=== PATIENT | male | born 1935 | race Caucasian/White ===

== ENCOUNTER → 2016-11-13 | Outpatient (CLI) | payer OTHER ==
[~2016-11-13] MED LIST: ACET-1311 PO; ASPCH81X PO; CRDCD240 PO; CYAN100020 PO; DILT180C PO; FERR325T5 PO; FLUO10CA24 PO; GLIP-171 PO; GLUCTAB18 PO; HYDR25TA5 PO; INSDGIPEN SC; IPRA1AER2 INH; LISI40TA PO; LOPE1CAP6 PO; NORT10CA4 PO; NVLGI/PEN SC; ONDA4TAB46 PO; RIVA1TAB4 PO; ROSU40TA18 PO; TPRSR/100 PO; TPRSR50 PO; VITA400C3 PO; ZNTT/150 PO
[2016-11-13 13:16] LABS: ESTIMATED AVERAGE GLUCOSE 171 mg/dl; HA1C FLAG Normal (Normal)
[2016-11-13 13:19] LABS: ALT/SGPT 27 U/L (12-78); BLOOD UREA NITROGEN 14 mg/dl (7-18); BUN/CREATININE RATIO 12.4 (10-20); CARBON DIOXIDE 26 mmol/L (21-32); CHLORIDE 106 mmol/L (98-107); GLUCOSE 72 mg/dl (70-99); POTASSIUM 4.1 mmol/L (3.5-5.1); SODIUM 142 mmol/L (136-145)
[2016-11-13 13:22] LABS: ALB/GLOB RATIO 0.9 (0.9-2); ALKALINE PHOSPHATASE 72 U/L (45-117); AST/SGOT 21 U/L (15-37)
== END | disposition home or self-care (01) ==
LOC: C.LABWYN 12:44
PROVIDERS: ATTEND Family Medicine
DX: E11.9 Type 2 diabetes mellitus without complications (principal)

== ENCOUNTER → 2017-02-03 | Outpatient (CLI) | payer OTHER ==
[2017-02-03 13:14] LABS: HEMATOCRIT 24.8 % (42-52); MEAN CELL VOLUME 92.5 fL (80-100); MEAN CORPUSCULAR HEMOGLOBIN 28.4 pg (25-34); MEAN CORPUSCULAR HGB CONC 30.6 g/dl (32-36); MEAN PLATELET VOLUME 9.6 fL (7.4-10.4); PLATELET COUNT 338 K/uL (130-400); RED BLOOD COUNT 2.68 M/uL (4.7-6.1); WHITE BLOOD COUNT 8.04 K/uL (4.8-10.8)
[2017-02-03 13:43] LABS: TOTAL IRON BINDING CAPACITY 440 mcg/dl (250-450)
== END | disposition home or self-care (01) ==
LOC: C.LABWYN 16:11
PROVIDERS: ATTEND Internal Medicine
DX: R19.5 Other fecal abnormalities (principal)

== ENCOUNTER 2017-02-06 17:42 | Inpatient (IN) | payer OTHER ==
[2017-02-06] VITALS (9 sets, daily range): BP systolic 99–136; BP diastolic 53–72; PULSE 57–91; TEMP 36.5–36.9; O2SAT 91–98; Ht 175.3 cm; Wt 120.0 kg
[~2017-02-06] VITALS: Ht 175.3 cm; Wt 120.0 kg
[~2017-02-06 17:42] MED LIST changes: -ACET-1311 PO; -CRDCD240 PO; -FERR325T5 PO; -GLIP-171 PO; -GLUCTAB18 PO; -LOPE1CAP6 PO; -NVLGI/PEN SC; -ONDA4TAB46 PO; -TPRSR50 PO; -VITA400C3 PO
[2017-02-06] MEDS ORDERED: SODIUM CHLORIDE 0.9% 1000ML 1,000 ML IV STA (17:53)
--- NOTE | 2017-02-06 18:01 | EMERGENCY ROOM VISIT NOTE ---
History Report prepared by Joe: Diana Trujillo Under the Supervision of: Dr. Gracie Briggs M.D. First contact with patient: 17:52 Chief Complaint: RECTAL BLEEDING Stated Complaint: BLEEDING RECTAL History of Present Illness The patient is a 81 year old male who presents to the Emergency Room with complaints of constant rectal bleeding beginning one week prior to arrival. The patient was seen by his PCP today and was referred to the ED. Has has been experiencing dizziness and lightheadedness. The patient has experienced rectal bleeding before. He notes his last colonoscopy was not recent. He is on a blood thinner. The patient denies any other symptoms at this time. Source of History: patient Onset: one week [employer] Position: buttock Quality: other (rectal bleeding) Timing: constant Note: The patient is experiencing dizziness and lightheadedness. He denies any other symptoms. Review of Systems See HPI for pertinent positives & negatives. A total of 10 systems reviewed and were otherwise negative. 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 (11) Urinary incontinence due to urethral sphincter incompetence Surgical Problems: (1) History of partial colectomy (2) S/P tonsillectomy Family History Cancer Diabetes mellitus Kidney disease Kidney stones Social History Smoking Status: Never Smoker Marital Status: Housing Status: lives with family Occupation Status: retired Current/Historical Medications Scheduled Cyanocobalamin (Vitamin B12), 1,000 MG PO QAM Diltiazem Hcl Coated Beads (Diltiazem Hcl Er), 180 MG PO DAILY Ferrous Sulfate (Ferrous Sulfate), 325 MG PO BID Fluoxetine HCl (Fluoxetine HCl), 10 MG PO DAILY Glipizide Xl (Glucotrol Xl), 5 MG PO QAM Glucosamine-Chondroitin (Osteo Bi-Flex Regular Str), 1 TAB PO DAILY Hydrochlorothiazide (Hydrochlorothiazide), 25 MG PO DAILY Insulin Aspart (Novolog Flexpen), 1 DOSE SC TID Insulin Glargine (Lantus Solostar), 80 UNITS SC QAM Insulin Glargine (Lantus Solostar), 90 UNITS SC QPM Lisinopril (Zestril), 40 MG PO DAILY Metoprolol Succinate (Metoprolol Succinate ER), 100 MG PO QAM Nortriptyline HCl (Nortriptyline HCl), 20 MG PO HS Ranitidine (Zantac), 150 MG PO QAM Rivaroxaban (Xarelto), 20 MG PO QAM Rosuvastatin Calcium (Rosuvastatin Calcium), 40 MG PO QAM Vitamin E (Vitamin E 400 Iu), 400 INTER.UNIT PO DAILY Scheduled PRN Acetaminophen (Tylenol), 650 MG PO Q4H PRN for Pain or Fever Ipratropium-Albuterol (Combivent Respimat), 1 PUFF INH Q6H PRN for Shortness of Breath Loperamide Hcl (Anti-Diarrheal), 2 MG PO Q4H PRN for Diarrhea Ondansetron Hcl (Zofran), 4 MG PO Q8 PRN for Nausea or Vomiting Allergies Coded Allergies: Cefuroxime (Verified Allergy, Unknown, Unknown, 02/06/17) Metformin (Verified Allergy, Unknown, Unknown, 02/06/17) Physical Exam Vital Signs Date Time Temp Pulse Resp B/P Pulse Ox O2 Delivery O2 Flow Rate FiO2 02/06/17 18:32 70 16 100/47 95 Room Air 02/06/17 18:18 80 12 96/44 92 Room Air 02/06/17 18:12 91 Room Air 02/06/17 18:11 96 02/06/17 17:44 36.7 115 20 97/63 96 Room Air Physical Exam GENERAL: Patient is a pale in appearance, well-nourished HEAD: Normocephalic atraumatic EYES: Ocular movements intact pupils equal and react to light OROPHARYNX mucous membranes are moist no exudates present no erythema or edema present NECK: Supple no nuchal rigidity CHEST: Good equal expansion LUNGS: Clear and equal to auscultation CARDIAC: Normal S1 and S2 ABDOMEN: Soft nontender no guarding BACK: No CVA tenderness RECTAL: Brown stool, heme positive. EXTREMITIES: No pain upon palpation normal muscle strength in all groups no clubbing cyanosis or edema NEURO: Patient is following commands is answering questions appropriately. Alert and oriented x3 Cranial Nerves 2-12 grossly intact Medical Decision & Procedures Laboratory Results 02/06/17 18:06 Red Blood Count 2.61, Mean Corpuscular Volume 92.3, Mean Corpuscular Hemoglobin 28.7, Mean Corpuscular Hemoglobin Concent 31.1, Mean Platelet Volume 9.2, Neutrophils (%) (Auto) 64.4, Lymphocytes (%) (Auto) 22.6, Monocytes (%) (Auto) 10.3, Eosinophils (%) (Auto) 2.3, Basophils (%) (Auto) 0.3, Neutrophils # (Auto ) 5.82, Lymphocytes # (Auto) 2.04, Monocytes # (Auto) 0.93, Eosinophils # (Auto ) 0.21, Basophils # (Auto) 0.03 02/06/17 18:06 Test 02/06/17 18:06 White Blood Count 9.04 K/uL (4.8-10.8) Red Blood Count 2.61 M/uL (4.7-6.1) Hemoglobin 7.5 g/dL (14.0-18.0) Hematocrit 24.1 % (42-52) Mean Corpuscular Volume 92.3 fL (80-100) Mean Corpuscular Hemoglobin 28.7 pg (25-34) Mean Corpuscular Hemoglobin Concent 31.1 g/dl (32-36) Platelet Count 395 K/uL (130-400) Mean Platelet Volume 9.2 fL (7.4-10.4) Neutrophils (%) (Auto) 64.4 % Lymphocytes (%) (Auto) 22.6 % Monocytes (%) (Auto) 10.3 % Eosinophils (%) (Auto) 2.3 % Basophils (%) (Auto) 0.3 % Neutrophils # (Auto) 5.82 K/uL (1.4-6.5) Lymphocytes # (Auto) 2.04 K/uL (1.2-3.4) Monocytes # (Auto) 0.93 K/uL (0.11-0.59) Eosinophils # (Auto) 0.21 K/uL (0-0.5) Basophils # (Auto) 0.03 K/uL (0-0.2) RDW Standard Deviation 48.3 fL (36.4-46.3) RDW Coefficient of Variation 14.6 % (11.5-14.5) Immature Granulocyte % (Auto) 0.1 % Immature Granulocyte # (Auto) 0.01 K/uL (0.00-0.02) Polychromasia 1+ Schistocytes 1+ Prothrombin Time 14.0 SECONDS (9.0-12.0) Prothromb Time International Ratio 1.3 (0.9-1.1) Activated Partial Thromboplast Time 30.3 SECONDS (21.0-31.0) Partial Thromboplastin Ratio 1.2 Anion Gap 6.0 mmol/L (3-11) Estimated GFR () 45.8 Estimated GFR (Non- 39.5 BUN/Creatinine Ratio 21.5 (10-20) Calcium Level 8.3 mg/dl (8.5-10.1) Total Bilirubin 0.2 mg/dl (0.2-1) Direct Bilirubin < 0.1 mg/dl (0-0.2) Aspartate Amino Transf (AST/SGOT) 13 U/L (15-37) Alanine Aminotransferase (ALT/SGPT) 18 U/L (12-78) Alkaline Phosphatase 69 U/L (45-117) Total Protein 7.1 gm/dl (6.4-8.2) Albumin 3.2 gm/dl (3.4-5.0) Lipase 98 U/L (73-393) Labs reviewed by ED physician. Medications Administered Medications (Trade) Dose Ordered Sig/Melany Route Start Time Stop Time Status Last Admin Dose Admin Sodium Chloride (Nss 1000ml) 1,000 ml @ 999 mls/hr Q1H1M STAT IV 02/06/17 17:53 02/06/17 18:53 DC 02/06/17 18:28 999 MLS/HR Pantoprazole Sodium 1 ea 1 ea NOW STAT IV 02/06/17 18:30 02/06/17 18:32 DC 02/06/17 19:35 1 EA Pantoprazole Sodium 40 mg/ Dextrose 100 ml @ 20 mls/hr Q5H IV 02/06/17 19:00 02/06/17 21:07 DC 02/06/17 19:33 20 MLS/HR Pantoprazole Sodium/Dextrose (Protonix Inj/D5 100ml) 120 ml @ 480 mls/hr TODAY@1845 IV 02/06/17 18:45 02/06/17 18:59 DC 02/06/17 19:09 480 MLS/HR ECG Indication: other (rectal bleeding) Rate (beats per minute): 98 Rhythm: atrial flutter Findings: T-wave inversion (Inferior), no acute ischemic change, other ( variable AV block) ED Course 175: Past medical records reviewed. The patient was evaluated in room C5. A complete history and physical examination was performed. 1753: Sodium Chloride 1,000 ml @ 999 mls/hr IV. 1830: Pantoprazole Sodium 40 mg/ Syringe 10 ml @ 5 mls/min IV. 184: The patient signed consent form. 184: Pantoprazole Sodium 80 mg/ Dextrose 120 ml @ 480 mls/hr IV. 185: I discussed the patient's case with Dr. Ramirez Kelly, she has agreed to evaluate the patient for further management and care. 190: Pantoprazole Sodium 40 mg/ Dextrose 100 ml @ 20 mls/hr IV. 190: Upon reexamination the patient is hemodynamically stable. I discussed results and treatment plan with the patient. He verbalizes agreement and understanding. I spoke with Dr. Guzmán from the [facility] Hospitalist Service. The patient will be evaluated for further management. Medical Decision The patient is a 81 year old male who presents to the ED with complaints of rectal bleeding. Differential diagnosis: Etiologies such as diverticulosis, AVM, coagulopathy, colitis, inflammatory bowel disease, malignancy, Hailee-Hsieh tear, esophagitis, peptic ulcer disease , variceal bleed, gastritis, epistaxis, fissure, hemorrhoids, as well as others were entertained. This is an 81-year-old male who presents emergency department complaining of generalized weakness along with black and tarry stools. The patient has had a GI bleed in the past. His hemoglobin was noted to be below 8. For this reason the patient was typed and screened and he willingly signed the blood consent form. He was typed and screened for 2 units of packed red blood cells. He was started on IV Protonix bolus and drip. The patient I will note is hypotensive here in emergency department therefore he was given normal saline bolus. I did discuss the case with the hospitalist service who agreed to admit the patient. Patient was in agreement with the treatment plan. Consults Time Called: 1850 Consulting Physician: Dr. Ramirez Kelly Returned Call: 1852 I discussed the patient's case with Dr. Guzmán, she has agreed to evaluate the patient for further management and care. Impression Primary Impression: Anemia Additional Impression: GI bleed Critical Care I have personally spent greater than 30 minutes of critical care time in the direct management of this patient. This includes bedside care, interpretation of diagnostic studies, and testing, discussion with consultants, patient, and family members, and other required patient management activities. This 30 minutes is in excess of all separately billable procedures. Scribe Attestation The scribe's documentation has been prepared under my direction and personally reviewed by me in its entirety. I confirm that the note above accurately reflects all work, treatment, procedures, and medical decision making performed by me. Departure Information Dispostion Being Evaluated By Hospitalist Referrals MICHAEL AGUILAR (PCP) Problem Qualifiers Primary Impression: Anemia Anemia type: other cause Other causes of anemia: acute posthemorrhagic Qualified Codes: D62 - Acute posthemorrhagic anemia Additional Impression: GI bleed GI bleed type/associated pathology: unspecified gastrointestinal hemorrhage type Qualified Codes: K92.2 - Gastrointestinal hemorrhage, unspecified
[2017-02-06 18:20] LABS: BASO % 0.3 %; BASO ABS # 0.03 K/uL (0-0.2); EOS % 2.3 %; HEMATOCRIT 24.1 % (42-52); IG% 0.1 %; LYMPH % 22.6 %; LYMPH ABS # 2.04 K/uL (1.2-3.4); MEAN CELL VOLUME 92.3 fL (80-100); MEAN CORPUSCULAR HEMOGLOBIN 28.7 pg (25-34); MEAN CORPUSCULAR HGB CONC 31.1 g/dl (32-36); MEAN PLATELET VOLUME 9.2 fL (7.4-10.4); MONO % 10.3 %; NEUT % 64.4 %; PLATELET COUNT 395 K/uL (130-400); RED BLOOD COUNT 2.61 M/uL (4.7-6.1); WHITE BLOOD COUNT 9.04 K/uL (4.8-10.8)
[2017-02-06 18:30] LABS: INR 1.3 (0.9-1.1); PARTIAL THROMBOPLASTIN RATIO 1.2
[2017-02-06] MEDS ORDERED: PANTOprazole INJ 40 MG in SYRINGE 0 ML IV STA (18:30)
[2017-02-06 18:37] LABS: COMPLETE YES; POLYCHROMASIA 1+; SCHISTOCYTES 1+
[2017-02-06 18:38] LABS: BLOOD UREA NITROGEN 34 mg/dl (7-18); BUN/CREATININE RATIO 21.5 (10-20); CALCIUM 8.3 mg/dl (8.5-10.1); CARBON DIOXIDE 28 mmol/L (21-32); CHLORIDE 111 mmol/L (98-107); GLUCOSE 146 mg/dl (70-99); POTASSIUM 4.4 mmol/L (3.5-5.1); SODIUM 145 mmol/L (136-145)
[2017-02-06] MEDS ORDERED: PANTOprazole INJ 80 MG in DEXTROSE 5% 100ML IV SCH (18:45)
[2017-02-06 18:47] LABS: ALKALINE PHOSPHATASE 69 U/L (45-117); ALT/SGPT 18 U/L (12-78); AST/SGOT 13 U/L (15-37)
[2017-02-06] MEDS: PANTOprazole INJ 40 MG in DEXTROSE 5% 100ML IV SCH ×3 (19:10→22:14)
[2017-02-06] MEDS ORDERED: GLUCOSE 40% GEL 15 GM TUBE PO PRN (19:15)
[2017-02-06] MEDS ORDERED: GLUCAGON FOR INJ 1 MG VIAL SQ PRN (19:15)
[2017-02-06] MEDS ORDERED: GLUCOSE 10 TABS/TUBE PO PRN (19:15)
[2017-02-06] MEDS ORDERED: POLYETHYLENE (MIRALAX) 17 GM PACK PO PRN (19:15)
[2017-02-06] MEDS ORDERED: DEXTROSE 50% 50 ML SYR IV PRN (19:15)
[2017-02-06] MEDS ORDERED: ONDANSETRON INJ 2 MG/ML 2 ML VIAL IV PRN (19:15)
[2017-02-06] MEDS ORDERED: ACETAMINOPHEN 325 MG TAB PO PRN ×2 (19:15→20:45)
[2017-02-06] MEDS ORDERED: GLUCTAB18 PO (19:24)
[2017-02-06] MEDS ORDERED: GLIP-171 PO (19:24)
[2017-02-06] MEDS ORDERED: FERR325T5 PO (19:24)
[2017-02-06] MEDS ORDERED: VITA400C3 PO (19:25)
[2017-02-06] MEDS ORDERED: ACET-1311 PO (19:29)
[2017-02-06] MEDS ORDERED: LOPE1CAP6 PO (19:29)
[2017-02-06] MEDS ORDERED: ONDA4TAB46 PO (19:29)
[2017-02-06] MEDS ORDERED: NVLGI/PEN SC (19:33)
--- NOTE | 2017-02-06 20:34 | History and Physical ---
History & Physical Date & Time of Service: Feb 06, 2017 at 19:53 Chief Complaint: Bleeding Rectal Primary Care Physician: Tequila Hunt History of Present Illness Source: patient, hospital records, [facility] 81 year-old male with past medical history significant for atrial fibrillation, diabetes, hypertension, hyperlipidemia, GERD, osteoarthritis, urinary incontinence, prostate cancer status post radiation and status post surgery, presents with episode of rectal bleeding started about 3 to 4 days days ago.He saw his PCP today for the rectal bleeding that sent him to the ER. Pt said that every time he had a BM, he saw blood in the tissue paper when he wipes. he said that he had a similar episode before that was resolved. last time that occurred he said that he had a colonoscopy, that was stopped early because he went to [facility]. he said that he has been taking his Xarelto everyday during the rectal bleeding. last BM was last night. He said that his stools are very hard. Pt said that he has been having lightheadedness and dizziness for the last few days. Denies any abdominal pain, nausea,vomiting, chest pain, shortness of breath, fever and chills. 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 Surgical Problems: (1) History of partial colectomy Status: Chronic (2) S/P tonsillectomy Status: Chronic Family History Cancer Diabetes mellitus Kidney disease Kidney stones Social History Smoking Status: Never Smoker Alcohol Use: none Drug Use: none Marital Status: Housing status: lives alone Occupational Status: retired Immunizations History of Influenza Vaccine: N/A Influenza Vaccine Date: Jun 07, 2008 History of Tetanus Vaccine?: Yes History of Pneumococcal: Yes Pneumococcal Date: Jun 23, 2011 History of Hepatitis B Vaccine: No Allergies Coded Allergies: Cefuroxime (Verified Allergy, Unknown, Unknown, 02/06/17) Metformin (Verified Allergy, Unknown, Unknown, 02/06/17) Home Medications Scheduled Cyanocobalamin (Vitamin B12), 1,000 MG PO QAM Diltiazem Hcl Coated Beads (Diltiazem Hcl Er), 180 MG PO DAILY Ferrous Sulfate (Ferrous Sulfate), 325 MG PO BID Fluoxetine HCl (Fluoxetine HCl), 10 MG PO DAILY Glipizide Xl (Glucotrol Xl), 5 MG PO QAM Glucosamine-Chondroitin (Osteo Bi-Flex Regular Str), 1 TAB PO DAILY Hydrochlorothiazide (Hydrochlorothiazide), 25 MG PO DAILY Insulin Aspart (Novolog Flexpen), 1 DOSE SC TID Insulin Glargine (Lantus Solostar), 80 UNITS SC QAM Insulin Glargine (Lantus Solostar), 90 UNITS SC QPM Lisinopril (Zestril), 40 MG PO DAILY Metoprolol Succinate (Metoprolol Succinate ER), 100 MG PO QAM Nortriptyline HCl (Nortriptyline HCl), 20 MG PO HS Ranitidine (Zantac), 150 MG PO QAM Rivaroxaban (Xarelto), 20 MG PO QAM Rosuvastatin Calcium (Rosuvastatin Calcium), 40 MG PO QAM Vitamin E (Vitamin E 400 Iu), 400 INTER.UNIT PO DAILY Scheduled PRN Acetaminophen (Tylenol), 650 MG PO Q4H PRN for Pain or Fever Ipratropium-Albuterol (Combivent Respimat), 1 PUFF INH Q6H PRN for Shortness of Breath Loperamide Hcl (Anti-Diarrheal), 2 MG PO Q4H PRN for Diarrhea Ondansetron Hcl (Zofran), 4 MG PO Q8 PRN for Nausea or Vomiting Review of Systems Constitutional: No chills, No fever, No weight loss ENT: No nasal symptoms, No sore throat, No unusual epistaxis Respiratory: No cough, No shortness of breath, No sputum Cardiovascular: No chest pain, No palpitations Abdomen: + GI bleeding, No diarrhea, No nausea, No pain, No vomiting Musculoskeletal: No calf pain Genitourinary - Male: No dysuria, No hematuria Neurologic: + problem reported (dizziness and lightheadness), No paralysis Psychiatric: No substance abuse Endocrine: No excessive thirst Hematologic / Lymphatic: No night sweats Integumentary: No itch, No rash Physical Exam Vital Signs Date Time Temp Pulse Resp B/P Pulse Ox O2 Delivery O2 Flow Rate FiO2 02/06/17 19:40 90 20 90/46 02/06/17 18:32 70 16 100/47 95 Room Air 02/06/17 18:18 80 12 96/44 92 Room Air 02/06/17 18:12 91 Room Air 02/06/17 18:11 96 02/06/17 17:44 36.7 115 20 97/63 96 Room Air General Appearance: WD/WN, no apparent distress Head: normocephalic, atraumatic Eyes: normal inspection, PERRL, EOMI ENT: normal ENT inspection, hearing grossly normal Neck: supple, no JVD Respiratory/Chest: lungs clear, no respiratory distress, no accessory muscle use Cardiovascular: no JVD, no murmur, + irregularly irregular Abdomen/GI: normal bowel sounds, non tender, + fecal occult blood Back: normal inspection, no CVA tenderness Extremities/Musculoskelatal: no calf tenderness, + pertinent finding (+ 1 edema ) Neurologic/Psych: no motor/sensory deficits, alert, normal mood/affect, oriented x 3 Skin: normal color, warm/dry, no rash Diagnostics Laboratory Results Results Past 24 Hours Test 02/06/17 18:06 Range/Units White Blood Count 9.04 4.8-10.8 K/uL Red Blood Count 2.61 4.7-6.1 M/uL Hemoglobin 7.5 14.0-18.0 g/dL Hematocrit 24.1 42-52 % Mean Corpuscular Volume 92.3 80-100 fL Mean Corpuscular Hemoglobin 28.7 25-34 pg Mean Corpuscular Hemoglobin Concent 31.1 32-36 g/dl Platelet Count 395 130-400 K/uL Mean Platelet Volume 9.2 7.4-10.4 fL Neutrophils (%) (Auto) 64.4 % Lymphocytes (%) (Auto) 22.6 % Monocytes (%) (Auto) 10.3 % Eosinophils (%) (Auto) 2.3 % Basophils (%) (Auto) 0.3 % Neutrophils # (Auto) 5.82 1.4-6.5 K/uL Lymphocytes # (Auto) 2.04 1.2-3.4 K/uL Monocytes # (Auto) 0.93 0.11-0.59 K/uL Eosinophils # (Auto) 0.21 0-0.5 K/uL Basophils # (Auto) 0.03 0-0.2 K/uL RDW Standard Deviation 48.3 36.4-46.3 fL RDW Coefficient of Variation 14.6 11.5-14.5 % Immature Granulocyte % (Auto) 0.1 % Immature Granulocyte # (Auto) 0.01 0.00-0.02 K/uL Polychromasia 1+ Schistocytes 1+ Prothrombin Time 14.0 9.0-12.0 SECONDS Prothromb Time International Ratio 1.3 0.9-1.1 Activated Partial Thromboplast Time 30.3 21.0-31.0 SECONDS Partial Thromboplastin Ratio 1.2 Sodium Level 145 136-145 mmol/L Potassium Level 4.4 3.5-5.1 mmol/L Chloride Level 111 98-107 mmol/L Carbon Dioxide Level 28 21-32 mmol/L Anion Gap 6.0 3-11 mmol/L Blood Urea Nitrogen 34 7-18 mg/dl Creatinine 1.60 0.60-1.40 mg/dl Estimated GFR () 45.8 Estimated GFR (Non- 39.5 BUN/Creatinine Ratio 21.5 10-20 Random Glucose 146 70-99 mg/dl Calcium Level 8.3 8.5-10.1 mg/dl Total Bilirubin 0.2 0.2-1 mg/dl Direct Bilirubin < 0.1 0-0.2 mg/dl Aspartate Amino Transf (AST/SGOT) 13 15-37 U/L Alanine Aminotransferase (ALT/SGPT) 18 12-78 U/L Alkaline Phosphatase 69 45-117 U/L Total Protein 7.1 6.4-8.2 gm/dl Albumin 3.2 3.4-5.0 gm/dl Lipase 98 73-393 U/L Impression Assessment and Plan GI bleeding On Xarelto for AfiB Positive FOBT in the ER Hbg on admission 7.5 continue protonix drip type and cross and transfused 2 units prbc Blood consent signed Will hold xarelto Will consult GI Will give clear liquid diet and NPO after midnight Monitor h/h YOUSUF creatine on admission 1.6 creatine was 1.1 (back on 11/11) Will give gentle IVF hold Lisinopril and HCTZ monitor BMP Afib rate is controlled EKG showed Atrial flutter Hold xarelto due to GI bleed Will resume diltiazem an Metoprol once BP improved Risks discussed with pt such as blood clot and stroke. HTN BP is in the low side Hold BP med Continue monitor BP DM Type 2 Check Hba1c hold oral meds insulin coverage pharmacy consult for glycemic management Hx Prostate CA Denies any hematuria Stable DVT px on SCDs due to GI bleed CODE Status as per Pt level 3 (Full code, NO mech ventilation) Level of Care Telemetry Resuscitation Status FULL NO MECH VENTILATION VTE Prophylaxis VTE Risk Assessment Done? Y/N: Yes Risk Level: Moderate Given or contraindicated: SCD's, Contraindicated
[2017-02-06] MEDS ORDERED: IPRATROPIUM BROMIDE/ALBUTEROL respimat INH INH PRN (20:45)
[2017-02-06] MEDS ORDERED: INSULIN GLARGINE SOLOSTAR 100 UNITS/ML 3 ML PEN SC SCH (21:00)
[2017-02-06] MEDS ORDERED: PHARMACY GLYCEMIC MGMT CONSULT PRN (21:03)
[2017-02-06] MEDS: INSULIN ASPART 100 UNITS/ML 3 ML PEN SC SCH (21:46)
[2017-02-06] MEDS: NORTRIPTYLINE HCL 10 MG CAP PO SCH (22:14)
[2017-02-06] MEDS: SODIUM CHLORIDE 0.9% 1000ML 1,000 ML IV SCH (22:15)
[2017-02-07] VITALS (16 sets, daily range): BP systolic 98–138; BP diastolic 40–80; PULSE 61–118; TEMP 36.4–37.4; O2SAT 92–97
[2017-02-07] MEDS ORDERED: PANTOprazole INJ 40 MG in DEXTROSE 5% 100ML IV SCH (00:33)
[2017-02-07] MEDS: PANTOprazole INJ 40 MG in DEXTROSE 5% 100ML IV SCH ×5 (04:07→21:07)
[2017-02-07] MEDS: SODIUM CHLORIDE 0.9% 1000ML 1,000 ML IV SCH (04:07)
[2017-02-07 06:38] LABS: HEMATOCRIT 28.8 % (42-52); MEAN CELL VOLUME 90.3 fL (80-100); MEAN CORPUSCULAR HEMOGLOBIN 28.8 pg (25-34); MEAN CORPUSCULAR HGB CONC 31.9 g/dl (32-36); MEAN PLATELET VOLUME 9.2 fL (7.4-10.4); PLATELET COUNT 319 K/uL (130-400); RED BLOOD COUNT 3.19 M/uL (4.7-6.1); WHITE BLOOD COUNT 11.08 K/uL (4.8-10.8)
[2017-02-07] MEDS: INSULIN ASPART 100 UNITS/ML 3 ML PEN SC SCH ×4 (07:00→20:44)
[2017-02-07 07:10] LABS: ESTIMATED AVERAGE GLUCOSE 134 mg/dl; HA1C FLAG Normal (Normal)
[2017-02-07] MEDS ORDERED: D5W AND NSS 1,000 ML IV SCH (07:15)
[2017-02-07 07:32] LABS: BUN/CREATININE RATIO 21.9 (10-20); CALCIUM 7.7 mg/dl (8.5-10.1); CREATININE 1.3 mg/dl (0.60-1.40); POTASSIUM 3.9 mmol/L (3.5-5.1)
[2017-02-07] MEDS: FERROUS SULFATE 325 MG TAB PO SCH ×2 (07:44→17:18)
[2017-02-07] MEDS: FLUOXETINE HCL 10 MG CAP PO SCH (07:45)
[2017-02-07] MEDS: ROSUVASTATIN CALCIUM 20 MG TAB PO SCH (07:45)
[2017-02-07] MEDS: TOCOPHERYL, DL-ALPHA 400 INTER.UNIT CAP PO SCH (07:45)
[2017-02-07] MEDS: CYANOCOBALAMIN 500 MCG TAB (VIT B-12) PO SCH (07:45)
[2017-02-07] MEDS: RANITIDINE HCL 150 MG TAB PO SCH (07:46)
[2017-02-07] MEDS ORDERED: NURSING VERBAL MED ORDER STA (08:06)
[2017-02-07] MEDS ORDERED: METOPROLOL TARTRATE 1 MG/ML VIAL IV STA (08:38)
[2017-02-07 08:45] LABS: URINE APPEARANCE CLEAR (CLEAR); URINE BILIRUBIN NEG (NEG); URINE COLOR YELLOW; URINE NITRITE NEG (NEG); URINE SPECIFIC GRAVITY 1.018 (1.000-1.030); UROBILINOGEN NEG (NEG)
[2017-02-07 08:49] LABS: MANUAL MICROSCOPIC REQUIRED? NO; REVIEW REQ? NO
[2017-02-07] MEDS: DILTIAZEM HCL (TIAzac) 180 MG CAPCR PO SCH (08:55)
[2017-02-07] MEDS: METOPROLOL SUCC 50MG EXT REL TAB PO SCH (08:56)
[2017-02-07] MEDS ORDERED: NON-FORMULARY MEDICATION (Glucosamine-Chondroitin (Osteo Bi-Flex Regular Str) 1 TAB) PO SCH (09:00)
[2017-02-07] MEDS ORDERED: TOCOPHERYL, DL-ALPHA 400 INTER.UNIT CAP PO SCH (09:00)
--- NOTE | 2017-02-07 09:12 | Progress Note ---
Internal Med Progress Note Date of Service: Feb 07, 2017. Provider Documentation: SUBJECTIVE: Patient is seen and examined at bedside. States feeling well. Denies chest pain , SOB, palpitations, dizziness, abd pain. Had BM today but denies any bleeding. Currently in A.flutter with RVR but asymptomatic. Received 2 units PRBC since hospitalization. Hb:9.2 today. Hypoglycemic this morning but improved. OBJECTIVE: Vital Signs-as noted below Physical Exam: General Appearance:Moderately built and nourished, no apparent distress Head: normocephalic, Atraumatic Eyes: normal inspection, EOMI, PERRLA Neck: supple, Trachea midline Respiratory/Chest: Normal breath sounds, CTA, No accessory muscle use Cardiovascular: Irregularly Irregular. No audible murmur Abdomen/GI:Soft, Non tender, Bowel sounds present, Obese Extremities/Musculoskelatal:normal inspection, Trace b/l pedal edema Neurologic/Psych:AAOX3, grossly no focal neurological deficits Skin: normal color, warm Lab data as noted below. ASSESSMENT & PLAN: Acute on Chronic GI bleeding On Xarelto for Afib DD: Polyps, diverticulosis, AVMs, hemorrhoids States being on Aspirin at home but not seen on home meds States having colonoscopy X 2 recently but could not be completed secondary to uncontrolled afib Denies use of NSAIDs Positive FOBT Hb:7.5 on admission. Currently Hb:9.2 Baseline Hb: around 13.0 S/P 2 units PRBCs On Protonix drip, IVF Hold xarelto Monitor H&H, Transfuse PRN GI consulted Currently no active bleeding A.flutter with RVR H/O Afib on chronic anticoagulation EKG: Atrial flutter Currently asymptomatic Restart diltiazem an Metoprolol which were held secondary to low BP Continue to hold Xarelto due to GI bleed Will consult cardiology Monitor electrolytes. check Mag levels YOUSUF Likely prerenal creatine on admission 1.6. Baseline: 1.1 Cr levels improved to 1.3 today On IVF Hold Lisinopril and HCTZ for now Avoid nephrotoxic agents Monitor renal function HTN Presented with hypotension Will resume Lisinopril and HCTZ when BP better Continue DM II A1C:6.3 hold oral meds ISS, accu checks pharmacy consult for glycemic management Hypoglycemic this morning On D5NSS. Will change IVF if hypoglycemia improves Hx Prostate CA Denies any hematuria UA:pending DVT PX: SCDs due to GI bleed CODE STATUS: Pt level 3 (Full code, NO [facility] ventilation) Vital Signs: Date Time Temp Pulse Resp B/P Pulse Ox O2 Delivery O2 Flow Rate FiO2 02/07/17 07:41 36.8 110 22 104/63 97 Room Air 02/07/17 04:00 Room Air 02/07/17 03:55 36.7 97 20 125/75 92 Room Air 02/07/17 01:15 36.9 71 18 116/72 95 02/07/17 00:30 36.8 75 18 113/40 94 02/07/17 00:01 36.9 61 20 108/70 96 02/07/17 00:01 Room Air 02/06/17 23:30 58 18 101/61 94 02/06/17 23:25 36.8 57 22 116/72 95 02/06/17 23:17 36.6 77 20 116/72 95 Room Air 02/06/17 23:10 36.9 91 20 114/61 95 02/06/17 22:30 36.8 75 20 105/67 95 02/06/17 22:00 80 22 99/57 94 02/06/17 21:49 36.6 71 20 99/53 94 02/06/17 21:34 36.5 71 18 99/53 91 02/06/17 20:57 36.5 60 20 136/69 98 Room Air 02/06/17 20:19 90 14 114/68 94 Room Air 02/06/17 19:40 90 20 90/46 02/06/17 18:32 70 16 100/47 95 Room Air 02/06/17 18:18 80 12 96/44 92 Room Air 02/06/17 18:12 91 Room Air 02/06/17 18:11 96 02/06/17 17:44 36.7 115 20 97/63 96 Room Air Lab Results: Results Past 24 Hours Test 02/06/17 18:06 02/06/17 21:28 02/07/17 06:10 02/07/17 06:23 Range/Units White Blood Count 9.04 11.08 4.8-10.8 K/uL Red Blood Count 2.61 3.19 4.7-6.1 M/uL Hemoglobin 7.5 9.2 14.0-18.0 g/dL Hematocrit 24.1 28.8 42-52 % Mean Corpuscular Volume 92.3 90.3 80-100 fL Mean Corpuscular Hemoglobin 28.7 28.8 25-34 pg Mean Corpuscular Hemoglobin Concent 31.1 31.9 32-36 g/dl Platelet Count 395 319 130-400 K/uL Mean Platelet Volume 9.2 9.2 7.4-10.4 fL Neutrophils (%) (Auto) 64.4 % Lymphocytes (%) (Auto) 22.6 % Monocytes (%) (Auto) 10.3 % Eosinophils (%) (Auto) 2.3 % Basophils (%) (Auto) 0.3 % Neutrophils # (Auto) 5.82 1.4-6.5 K/uL Lymphocytes # (Auto) 2.04 1.2-3.4 K/uL Monocytes # (Auto) 0.93 0.11-0.59 K/uL Eosinophils # (Auto) 0.21 0-0.5 K/uL Basophils # (Auto) 0.03 0-0.2 K/uL RDW Standard Deviation 48.3 49.0 36.4-46.3 fL RDW Coefficient of Variation 14.6 15.0 11.5-14.5 % Immature Granulocyte % (Auto) 0.1 % Immature Granulocyte # (Auto) 0.01 0.00-0.02 K/uL Polychromasia 1+ Schistocytes 1+ Prothrombin Time 14.0 9.0-12.0 SECONDS Prothromb Time International Ratio 1.3 0.9-1.1 Activated Partial Thromboplast Time 30.3 21.0-31.0 SECONDS Partial Thromboplastin Ratio 1.2 Sodium Level 145 145 136-145 mmol/L Potassium Level 4.4 3.9 3.5-5.1 mmol/L Chloride Level 111 111 98-107 mmol/L Carbon Dioxide Level 28 29 21-32 mmol/L Anion Gap 6.0 5.0 3-11 mmol/L Blood Urea Nitrogen 34 29 7-18 mg/dl Creatinine 1.60 1.30 0.60-1.40 mg/dl Estimated GFR () 45.8 58.9 Estimated GFR (Non- 39.5 50.8 BUN/Creatinine Ratio 21.5 21.9 10-20 Random Glucose 146 41 70-99 mg/dl Calcium Level 8.3 7.7 8.5-10.1 mg/dl Total Bilirubin 0.2 0.2-1 mg/dl Direct Bilirubin < 0.1 0-0.2 mg/dl Aspartate Amino Transf (AST/SGOT) 13 15-37 U/L Alanine Aminotransferase (ALT/SGPT) 18 12-78 U/L Alkaline Phosphatase 69 45-117 U/L Total Protein 7.1 6.4-8.2 gm/dl Albumin 3.2 3.4-5.0 gm/dl Lipase 98 73-393 U/L Bedside Glucose 71 48 70-99 mg/dl Est Creatinine Clear Calc Drug Dose 56.5 ml/min Estimated Average Glucose 134 mg/dl Hemoglobin A1c 6.3 4.5-5.6 % Test 02/07/17 06:43 02/07/17 08:17 02/07/17 08:25 Range/Units Bedside Glucose 77 70-99 mg/dl
[2017-02-07] MEDS ORDERED: SODIUM CHLORIDE 0.9% 250ML 250 ML IV ONE (09:30)
[2017-02-07] MEDS ORDERED: DILTIAZEM BOLUS / DRIP IV STA (10:21)
[2017-02-07] MEDS ORDERED: DILTIAZEM HCL 5 MG/ML 5 ML VIAL IV SCH (11:00)
[2017-02-07] MEDS ORDERED: DILTIAZEM HCL INJ 125 MG in DEXTROSE 5% 100ML IV PRN (11:00)
--- NOTE | 2017-02-07 11:20 | Cardiology Consultation ---
Cardiology Consultation Date of Consultation: Feb 07, 2017. Requesting Physician: Dr. Perdue Reason for Consultation: Atrial flutter Pt evaluation today including: conversation w/ patient, physical exam, lab review, review of studies, review of inpatient medication list History of Present Illness This is a very pleasant 80-year-old gentleman who unfortunately has a very poor memory and therefore his history is unreliable. He has a history of prostate cancer. He was scheduled for a colonoscopy and was found to be in atrial flutter , I believe this was in 2013. He was asymptomatic and had no history of this. He was sent to the emergency room where he was documented to be in atrial flutter with a rapid heart rate of about 140 bpm. He was started on beta blockade and sent home, however he did convert to sinus rhythm while in the emergency room, this occurred after a quite brief episode of atrial flutter. He wore an event recorder to see whether he had frequent or rapid atrial arrhythmias, which he wore from 10/09/2014 through 11/12/2014. He did have frequent paroxysmal atrial fibrillation or flutter, mostly on a daily basis, averaging 5-7% of the time. His heart rate was rapid at times, around 140 bpm during the episodes although they were asymptomatic. He was therefore started on Xarelto 20 mg daily on 12/08/2014. He was subsequently hospitalized for urosepsis, and his lisinopril, Xarelto and aspirin were all discontinued. I believe his Xarelto was held in plans for colonoscopy however that was not arranged I therefore restarted it and held it prior to his colonoscopy which was attempted on 12/28/2015. He tells me that he was told not to take his diltiazem for his metoprolol that morning, he was in atrial fibrillation with a rapid heart rate at the time the procedure and therefore it was canceled. He was seen on 02/06/2017 for intermittent rectal bleeding which has been progressive. He was found to have severe anemia as well as heme-positive stools. He was therefore admitted. His anticoagulation is now on hold. At the time my evaluation he was feeling well. He has no complaints of palpitations, no chest discomfort or other cardiovascular symptoms. He does experience shortness of breath at times was not having that today. Past Medical/Surgical History (1) GI bleeding (2) Anemia (3) HTN (hypertension) (4) Hypercholesteremia (5) Afib Family History Cancer Diabetes mellitus Kidney disease Kidney stones Social History Smoking Status: Never Smoker History of Alcohol Use: No Review of Systems Constitutional: No fever, No weakness, No weight loss Respiratory: No cough, No dyspnea on exertion, No shortness of breath, No wheezing Cardiac: No PND, No chest pain, No edema, No orthopnea, No palpitations Abdomen: No GI bleeding, No diarrhea, No nausea, No pain, No vomiting Male : No nocturia more than once/night, No sexual dysfunction, No slowing stream, No urinary frequency Neurologic: No balance problems, No numbness/tingling, No paralysis, No weakness Heme: No abnormal bleeding/bruising, No clotting problems Endo: No fatigue Skin: No problem reported All Other Systems: Reviewed and Negative Allergies Coded Allergies: Cefuroxime (Verified Allergy, Unknown, Unknown, 02/06/17) Metformin (Verified Allergy, Unknown, Unknown, 02/06/17) Medications Current Inpatient Medications Medications (Trade) Dose Ordered Sig/Melany Route Start Time Stop Time Status Last Admin Dose Admin Acetaminophen (Tylenol Tab) 650 mg Q4H PRN PO 02/06/17 19:15 03/08/17 19:14 Ondansetron HCl (Zofran Inj) 4 mg Q6H PRN IV 02/06/17 19:15 03/08/17 19:14 Polyethylene (Miralax Powder Packet) 17 gm DAILY PRN PO 02/06/17 19:15 03/08/17 19:14 Glucose (Glucose 40% Gel) 15-30 GRAMS 15 GRAMS... UD PRN PO 02/06/17 19:15 03/08/17 19:14 Glucose (Glucose Chew Tab) 4-8 Tablets 4 Tabl... UD PRN PO 02/06/17 19:15 03/08/17 19:14 Dextrose (Dextrose 50% 50ML Syringe) 25-50ML OF 50% DW IV FOR... UD PRN IV 02/06/17 19:15 03/08/17 19:14 Glucagon (Glucagon Inj) 1 mg UD PRN SQ 02/06/17 19:15 03/08/17 19:14 Miscellaneous Information (Consult Glycemic Management Pharmacy) 1 ea UD PRN N/A 02/06/17 21:03 03/08/17 21:02 Insulin Aspart (novoLOG ASPART) SLIDING SCALE If C... ACHS SC 02/06/17 21:00 03/08/17 20:59 Ferrous Sulfate (Feosol Tab) 325 mg BIDM PO 02/07/17 07:30 03/09/17 07:29 02/07/17 07:44 325 MG Fluoxetine HCl (Prozac Cap) 10 mg DAILY PO 02/07/17 09:00 03/09/17 08:59 02/07/17 07:45 10 MG Albuterol/ Ipratropium (Combivent Respimat Inh) 1 puffs Q6H PRN INH 02/06/17 20:45 03/08/17 20:44 Nortriptyline HCl (Pamelor Cap) 20 mg HS PO 02/06/17 21:00 03/08/17 20:59 02/06/17 22:14 20 MG Ranitidine HCl (zANTac TAB) 150 mg QAM PO 02/07/17 09:00 03/09/17 08:59 02/07/17 07:46 150 MG Cyanocobalamin (Vitamin B-12 Tab) 1,000 mcg QAM PO 02/07/17 09:00 03/09/17 08:59 02/07/17 07:45 1,000 MCG Rosuvastatin Calcium (Crestor Tab) 40 mg QAM PO 02/07/17 09:00 03/09/17 08:59 02/07/17 07:45 40 MG xr-Weulo-Otqjayulax Acetate 400 interunit 400 interunit DAILY PO 02/07/17 09:00 03/09/17 08:59 02/07/17 07:45 400 INTERUNIT Pantoprazole Sodium 40 mg/ Dextrose 100 ml @ 20 mls/hr Q5H IV 02/06/17 22:15 03/08/17 22:14 02/07/17 07:52 20 MLS/HR Dextrose/Sodium Chloride (D5W And Nss) 1,000 ml @ 75 mls/hr [id number] IV 02/07/17 07:15 02/07/17 20:34 02/07/17 07:53 75 MLS/HR Metoprolol Succinate (Toprol Xl Tab) 100 mg DAILY PO 02/07/17 08:15 03/09/17 08:14 02/07/17 08:56 100 MG Diltiazem HCl 180 mg 180 mg DAILY PO 02/07/17 08:15 03/09/17 08:14 Future Hold 02/07/17 08:55 180 MG Diltiazem HCl/ Dextrose (Cardizem Inj/D5 100ml) 125 ml @ 5 mls/hr Q24H PRN IV 02/07/17 11:00 03/09/17 10:59 Physical Exam Vital Signs Past 12 Hours Date Time Temp Pulse Resp B/P Pulse Ox O2 Delivery O2 Flow Rate FiO2 02/07/17 10:10 130 111/72 02/07/17 07:41 36.8 110 22 104/63 97 Room Air 02/07/17 04:00 Room Air 02/07/17 03:55 36.7 97 20 125/75 92 Room Air 02/07/17 01:15 36.9 71 18 116/72 95 02/07/17 00:30 36.8 75 18 113/40 94 02/07/17 00:01 36.9 61 20 108/70 96 02/07/17 00:01 Room Air 02/06/17 23:30 58 18 101/61 94 02/06/17 23:25 36.8 57 22 116/72 95 02/06/17 23:17 36.6 77 20 116/72 95 Room Air 02/06/17 23:10 36.9 91 20 114/61 95 Constitutional: General Apperance: obese Level of Distress: NAD Psychiatric: Mental Status: active & alert Head: normocephalic Eyes: EOM: EOMI ENMT: normal ENT inspection, hearing grossly normal Neck: supple, no masses Lungs: Respiratory effort: no dyspnea, good air movement Auscultation: breath sounds normal, no wheezing Cardiovascular: Heart Auscultation: no murmurs, no rubs, no gallops, tachycardia, irregular rate rhythm Peripheral Pulses: Bruits: none appreciated Abdomen: Bowel Sounds: normal Inspection & Palpation: soft, no tenderness, guarding & rebound, no masses Musculoskeletal: normal strength (5/5 throughout) Extremities: no edema Neurologic: Cranial Nerves: grossly intact Sensation: grossly intact Data Laboratory Results: Last 24 Hours Test 02/06/17 18:06 4/14/17 21:28 02/07/17 06:10 02/07/17 06:23 White Blood Count 9.04 K/uL 11.08 K/uL Red Blood Count 2.61 M/uL 3.19 M/uL Hemoglobin 7.5 g/dL 9.2 g/dL Hematocrit 24.1 % 28.8 % Mean Corpuscular Volume 92.3 fL 90.3 fL Mean Corpuscular Hemoglobin 28.7 pg 28.8 pg Mean Corpuscular Hemoglobin Concent 31.1 g/dl 31.9 g/dl Platelet Count 395 K/uL 319 K/uL Mean Platelet Volume 9.2 fL 9.2 fL Neutrophils (%) (Auto) 64.4 % Lymphocytes (%) (Auto) 22.6 % Monocytes (%) (Auto) 10.3 % Eosinophils (%) (Auto) 2.3 % Basophils (%) (Auto) 0.3 % Neutrophils # (Auto) 5.82 K/uL Lymphocytes # (Auto) 2.04 K/uL Monocytes # (Auto) 0.93 K/uL Eosinophils # (Auto) 0.21 K/uL Basophils # (Auto) 0.03 K/uL RDW Standard Deviation 48.3 fL 49.0 fL RDW Coefficient of Variation 14.6 % 15.0 % Immature Granulocyte % (Auto) 0.1 % Immature Granulocyte # (Auto) 0.01 K/uL Polychromasia 1+ Schistocytes 1+ Prothrombin Time 14.0 SECONDS Prothromb Time International Ratio 1.3 Activated Partial Thromboplast Time 30.3 SECONDS Partial Thromboplastin Ratio 1.2 Sodium Level 145 mmol/L 145 mmol/L Potassium Level 4.4 mmol/L 3.9 mmol/L Chloride Level 111 mmol/L 111 mmol/L Carbon Dioxide Level 28 mmol/L 29 mmol/L Anion Gap 6.0 mmol/L 5.0 mmol/L Blood Urea Nitrogen 34 mg/dl 29 mg/dl Creatinine 1.60 mg/dl 1.30 mg/dl Estimated GFR () 45.8 58.9 Estimated GFR (Non- 39.5 50.8 BUN/Creatinine Ratio 21.5 21.9 Random Glucose 146 mg/dl 41 mg/dl Calcium Level 8.3 mg/dl 7.7 mg/dl Total Bilirubin 0.2 mg/dl Direct Bilirubin < 0.1 mg/dl Aspartate Amino Transf (AST/SGOT) 13 U/L Alanine Aminotransferase (ALT/SGPT) 18 U/L Alkaline Phosphatase 69 U/L Total Protein 7.1 gm/dl Albumin 3.2 gm/dl Lipase 98 U/L Bedside Glucose 71 mg/dl 48 mg/dl Est Creatinine Clear Calc Drug Dose 56.5 ml/min Estimated Average Glucose 134 mg/dl Hemoglobin A1c 6.3 % Magnesium Level 2.2 mg/dl Test 02/07/17 06:43 02/07/17 08:25 Bedside Glucose 77 mg/dl Urine Color YELLOW Urine Appearance CLEAR Urine pH 5.0 Urine Specific Marilla 1.018 Urine Protein NEG Urine Glucose (UA) NEG Urine Ketones NEG Urine Occult Blood 3+ Urine Nitrite NEG Urine Bilirubin NEG Urine Urobilinogen NEG Urine Leukocyte Esterase NEG Urine WBC (Auto) 1-5 /hpf Urine RBC (Auto) 10-30 /hpf Urine Hyaline Casts (Auto) 0 /lpf Urine Epithelial Cells (Auto) 10-20 /lpf Urine Bacteria (Auto) NEG EKG: Atrial flutter with a heart rate of 98 bpm. Telemetry reviewed: Atrial flutter with a rapid heart rate, gradually rising since hospitalization. Assessment & Plan #1. Atrial flutter: He has a long history of paroxysmal atrial flutter, he is unaware of the rate in general. His rate controlling meds were held on admission , however he just received them. His HR was reasonably well-controlled with oral diltiazem and metoprolol at home. We will probably be forced to hold anticoagulation for now. Thank You
--- NOTE | 2017-02-07 13:52 | Pharmacy Progress Note ---
Glycemic Control Intl Consult Date of Service Feb 07, 2017. Scope Glycemic Pharmacist consulted by Dr Guzmán on 02/06/17 for glycemic control and to write orders per [facility] inpatient glycemic control protocol Objective Weight (Kilograms): 122.000 Accuchecks BSG (last 24hrs): Test 02/06/17 18:06 02/06/17 21:28 02/07/17 06:10 02/07/17 06:23 Random Glucose 146 mg/dl (70-99) 41 mg/dl (70-99) Bedside Glucose 71 mg/dl (70-99) 48 mg/dl (70-99) Test 02/07/17 06:43 02/07/17 10:48 Bedside Glucose 77 mg/dl (70-99) 82 mg/dl (70-99) Laboratory Data (last 24hrs) Test 02/06/17 18:06 02/07/17 06:10 Anion Gap 6.0 mmol/L 5.0 mmol/L BUN/Creatinine Ratio 21.5 21.9 Blood Urea Nitrogen 34 mg/dl 29 mg/dl Creatinine 1.60 mg/dl 1.30 mg/dl Potassium Level 4.4 mmol/L 3.9 mmol/L Sodium Level 145 mmol/L 145 mmol/L White Blood Count 9.04 K/uL 11.08 K/uL Red Blood Count 2.61 M/uL Hemoglobin 7.5 g/dL Hematocrit 24.1 % Mean Corpuscular Volume 92.3 fL Mean Corpuscular Hemoglobin 28.7 pg Mean Corpuscular Hemoglobin Concent 31.1 g/dl Platelet Count 395 K/uL Mean Platelet Volume 9.2 fL Neutrophils (%) (Auto) 64.4 % Lymphocytes (%) (Auto) 22.6 % Monocytes (%) (Auto) 10.3 % Eosinophils (%) (Auto) 2.3 % Basophils (%) (Auto) 0.3 % Neutrophils # (Auto) 5.82 K/uL Lymphocytes # (Auto) 2.04 K/uL Monocytes # (Auto) 0.93 K/uL Eosinophils # (Auto) 0.21 K/uL Basophils # (Auto) 0.03 K/uL Hemoglobin A1c 6.3 % HbA1c Test 02/07/17 06:10 Hemoglobin A1c 6.3 %(4.5-5.6) H Recent Pertinent Medications Outpatient Anti-diabetic Regimen: * Lantus SQ BID * 80 units in AM * 90 units in PM * NovoLog SQ SS * Glipizide ER 5mg PO daily * A1c = 7.6% 10/2016 --> 6.3% The patient is currently receiving: * Basal insulin: Lantus currently being held * Correctional Insulin: NovoLog Correction per scale AC/HS Goal Range: Low 120 mg/dL - High 160 mg/dL Correction Factor: 25 mg/dL/unit * Prandial insulin: Per carb ratio of 1 unit per 10 grams CHO consumed * Oral Agents: None at this time (held at admission) Risk Factors for Insulin Resistance: * IVF: D5NS @ 75mL/hr * Diet: T2DM clears, 100% of both breakfast and lunch consumed Assessment & Plan ASSESSMENT: * ADA & AACE recommend a goal blood sugar range 140-180 mg/dl for the majority of critically ill & non-critically ill patients. However, more stringent targets may be selected in individual cases. 02/07/17 * BSGs trended downward and the patient became hypoglycemic this AM * no insulin given in house - may be from long acting basal insulin (and sulfonylurea) prior to admission coupled with decreased PO intake? * dextrose IV fluids started * breakfast consumed and not covered with NovoLog --> lunch BSG continues to be below goal * For the aforementioned reasons, we will continue to hold both basal and prandial coverage until hypoglycemia resolves * Continue NovoLog correctional insulin if patient becomes hyperglycemic only * Home regimen highly weighted on basal insulin * may be at risk for hypoglycemia as o/p (also see A1c decrease over last 4 months) PLAN FOR INPATIENT GLYCEMIC CONTROL: * HOLD basal insulin at this time * when restarted - reduce dose * Continue NovoLog AC and HS * Correction factor: 30mg/dL/unit * Carb ratio: hold at this time (recommend 1:10 if/when resumed) * Goal range: 140-180mg/dL per ADA recommendations * A1c - current * add to discharge instructions RECOMMENDATIONS FOR DISCHARGE: * awaited, may need redistribution of basal insulin doses if hypoglycemia occurring as o/p * Please note that the plan above was derived based on current level of insulin resistance and hospital stress. These recommendations are appropriate for inpatient admission only. Plan of care upon discharge will need to be reassessed to avoid potential outpatient hypo/hyperglycemia. Thank you.
--- NOTE | 2017-02-07 14:12 | GASTROINTESTINAL CONSULTATION ---
DATE OF CONSULTATION: 02/07/2017 DATE OF CONSULTATION: 02/07/2017. REFERRED BY: Dr. Perdue. I was asked by Dr. Perdue to consult on this gentleman for GI bleeding. HISTORY OF PRESENT ILLNESS: The patient is an 81-year-old with a long history of chronic slow GI bleeding and this is in the setting of being on anticoagulation. He has been followed by Dr. Proctor in the past. He has had attempted colonoscopy, but due to history of Afib and atrial flutter with rapid ventricular response, no colonoscopy has been completed because he has tolerated the exam poorly. He has had some bouts of red rectal bleeding. He does have a history of prostate radiation for prostate cancer. He states that the rectal bleeding is red in nature, typically follows straining and does not occur with every bowel movement. He also has been noted to have some heme positive stools in the past. He does not take any nonsteroidal anti-inflammatory drugs. He is on Xarelto. He presented because of fatigue and weakness. I reviewed his medical records and past medical history. PAST MEDICAL HISTORY: Significant for hemorrhoids AFib, diabetes, hypertension, hypercholesterolemia, prostate CA. He has had a partial colectomy in the past. SOCIAL HISTORY: Not significant for active smoking or drinking. He has a family history of cancer, but it is unclear whether this is a gastrointestinal cancer. DRUG ALLERGIES: Include cefuroxime and metformin. OUTPATIENT MEDICATIONS: Include diltiazem, iron, fluoxetine, Glucotrol, hydrochlorothiazide, insulin, Zestril, metoprolol, nortriptyline, Zantac, Xarelto and numerous vitamins. REVIEW OF SYSTEMS: As above, otherwise he denies any recent fevers or change in weight. He has had no change in vision or hearing. He has had some increased weakness. He has also had some dizziness. He denies any diarrhea. In fact, he states sometimes his stools are hard. He has had no seizure activity or change in mood. He denies any icterus, or pruritus. He denies any joint swelling or pain. He denies any dysuria. He has had no productive cough, though he had palpitations related to his heart disease. He denies any night sweats and he has had no heat or cold intolerance. PHYSICAL EXAMINATION: GENERAL: Reveals an overweight gentleman in no distress. VITAL SIGNS: Most recent vitals show a temperature of 36.8, blood pressure 127/60, pulse of 98. SKIN: Anicteric. HEAD, EYES, EARS, NOSE, AND THROAT: Eyes show anicteric sclerae. Mouth is clear of lesions. NECK: Thick, but supple, no adenopathy. CHEST: Clear. HEART: Irregular. ABDOMEN: Obese but soft with no masses or rebound tenderness. EXTREMITIES: Warm with fair distal pulses. He has bipedal edema. NEUROLOGIC: He is alert and oriented x3 and neurologically grossly intact. LABORATORY DATA: Show a hemoglobin on admission of 7.5 and with transfusion 9.2. BUN was 29 with a creatinine of 1.3. IMPRESSION: Chronic gastrointestinal bleeding and red rectal bleeding in a gentleman with significant comorbid disease. I do not think he needs emergent endoscopy at this point. 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 Certainly given his Xarelto I am sure he has some chronic low-grade GI bleeding from obscure source. I would continue on acid inhibition. Certainly there is no reason his diet cannot be advanced and he can follow up with Dr. Proctor as an outpatient, perhaps consideration for colonoscopy without sedation would be the next step. 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 I would like to thank you for this consult. NICKY
[2017-02-07] MEDS ORDERED: SODIUM CHLORIDE 0.9% 1000ML 1,000 ML IV SCH (15:45)
[2017-02-07 17:10] LABS: HEMATOCRIT 30.5 % (42-52)
[2017-02-07] MEDS ORDERED: PANTOprazole INJ 80 MG in DEXTROSE 5% 100ML IV SCH (18:45)
[2017-02-07] MEDS: NORTRIPTYLINE HCL 10 MG CAP PO SCH (21:06)
[2017-02-08] MEDS: PANTOprazole INJ 40 MG in DEXTROSE 5% 100ML IV SCH ×2 (04:01→08:57)
[2017-02-08 04:06] VITALS: BP 119/68; PULSE 109; TEMP 36.5; O2SAT 94
[2017-02-08 06:23] LABS: HEMATOCRIT 30.6 % (42-52)
[2017-02-08 06:59] LABS: BUN/CREATININE RATIO 15.1 (10-20); CALCIUM 8.1 mg/dl (8.5-10.1); CREATININE 1.2 mg/dl (0.60-1.40); MAGNESIUM 2.2 mg/dl (1.8-2.4); POTASSIUM 4.5 mmol/L (3.5-5.1)
[2017-02-08] MEDS: INSULIN ASPART 100 UNITS/ML 3 ML PEN SC SCH ×4 (07:00→21:00)
[2017-02-08] MEDS ORDERED: NURSING VERBAL MED ORDER ONE ×2 (07:15→16:30)
[2017-02-08] MEDS: ROSUVASTATIN CALCIUM 20 MG TAB PO SCH (07:20)
[2017-02-08] MEDS: FERROUS SULFATE 325 MG TAB PO SCH ×2 (07:20→16:09)
[2017-02-08] MEDS: TOCOPHERYL, DL-ALPHA 400 INTER.UNIT CAP PO SCH (07:20)
[2017-02-08] MEDS: DILTIAZEM HCL (TIAzac) 180 MG CAPCR PO SCH (07:20)
[2017-02-08] MEDS: FLUOXETINE HCL 10 MG CAP PO SCH (07:20)
[2017-02-08] MEDS: RANITIDINE HCL 150 MG TAB PO SCH (07:21)
[2017-02-08] MEDS: CYANOCOBALAMIN 500 MCG TAB (VIT B-12) PO SCH (07:21)
[2017-02-08] MEDS: METOPROLOL SUCC 50MG EXT REL TAB PO SCH (07:21)
[2017-02-08 07:24] VITALS: BP 129/79; PULSE 131; TEMP 36.7; O2SAT 95
--- NOTE | 2017-02-08 10:25 | Cardiology Follow-Up ---
Subjective Date of Service: Feb 08, 2017. Pt evaluation today including: conversation w/ patient, physical exam, lab review, review of studies, review of inpatient medication list History of Present Illness This is a very pleasant 80-year-old gentleman who unfortunately has a very poor memory and therefore his history is unreliable. He has a history of prostate cancer. He was scheduled for a colonoscopy and was found to be in atrial flutter , I believe this was in 2013. He was asymptomatic and had no history of this. He was sent to the emergency room where he was documented to be in atrial flutter with a rapid heart rate of about 140 bpm. He was started on beta blockade and sent home, however he did convert to sinus rhythm while in the emergency room, this occurred after a quite brief episode of atrial flutter. He wore an event recorder to see whether he had frequent or rapid atrial arrhythmias, which he wore from 10/09/2014 through 11/12/2014. He did have frequent paroxysmal atrial fibrillation or flutter, mostly on a daily basis, averaging 5-7% of the time. His heart rate was rapid at times, around 140 bpm during the episodes although they were asymptomatic. He was therefore started on Xarelto 20 mg daily on 12/08/2014. He was subsequently hospitalized for urosepsis, and his lisinopril, Xarelto and aspirin were all discontinued. I believe his Xarelto was held in plans for colonoscopy however that was not arranged I therefore restarted it and held it prior to his colonoscopy which was attempted on 12/28/2015. He tells me that he was told not to take his diltiazem for his metoprolol that morning, he was in atrial fibrillation with a rapid heart rate at the time the procedure and therefore it was canceled. He was seen on 02/06/2017 for intermittent rectal bleeding which has been progressive. He was found to have severe anemia as well as heme-positive stools. He was therefore admitted. His anticoagulation is now on hold. He was seen by GI regarding his bleeding who felt that this should be an outpatient workup. He has no complaints today, he is back on his rate controlling medications. Social History Smoking Status: Never Smoker History of Alcohol Use: No Review of Systems Respiratory: No cough, No dyspnea on exertion, No shortness of breath, No wheezing Cardiac: No PND, No chest pain, No edema, No orthopnea, No palpitations Medications Cardiovascular: Item Value Date Time Rosuvastatin 40 mg 02/07/17 0900 Calcium QAM/PO 02/08/17 07 (Crestor Tab) Metoprolol 100 mg 02/07/17 0815 Succinate DAILY/PO 02/08/17 07 (Toprol Xl Tab) Diltiazem HCl 180 mg 02/07/17 0815 (TIAzac CAP) DAILY/PO 02/08/17 0720 Objective Vital Signs Past 12 Hours Date Time Temp Pulse Resp B/P Pulse Ox O2 Delivery O2 Flow Rate FiO2 02/08/17 08:00 Room Air 02/08/17 07:24 36.7 131 24 129/79 95 Room Air 02/08/17 04:06 36.5 109 19 119/68 94 Room Air 02/08/17 04:00 Room Air 02/08/17 00:01 Room Air 02/07/17 23:12 36.8 108 22 114/61 92 Room Air Last Recorded Weight-Kilograms: 122.000 Intake & Output 8-Hour Column 02/07/17 02/08/17 02/08/17 16:00 00:00 08:00 Intake Total 1100 ml 1097 ml 564 ml Balance 1100 ml 1097 ml 564 ml 24-Hour Column 02/08/17 08:00 Intake Total 2761 ml Balance 2761 ml Physical Exam Constitutional: General Apperance: obese Level of Distress: NAD Lungs: Respiratory effort: no dyspnea, good air movement Auscultation: breath sounds normal, no wheezing Cardiovascular: Heart Auscultation: no murmurs, no rubs, no gallops, tachycardia, irregular rate rhythm Peripheral Pulses: Bruits: none appreciated Extremities: no edema Data Laboratory Results: Last 24 Hours Test 02/07/17 10:48 02/07/17 16:46 02/07/17 17:03 02/07/17 20:27 Bedside Glucose 82 mg/dl 124 mg/dl 107 mg/dl Hemoglobin 10.0 g/dL Hematocrit 30.5 % Test 02/08/17 06:02 02/08/17 06:34 02/08/17 06:48 02/08/17 07:10 Hemoglobin 9.9 g/dL Hematocrit 30.6 % Sodium Level 145 mmol/L Potassium Level 4.5 mmol/L Chloride Level 111 mmol/L Carbon Dioxide Level 29 mmol/L Anion Gap 5.0 mmol/L Blood Urea Nitrogen 18 mg/dl Creatinine 1.20 mg/dl Est Creatinine Clear Calc Drug Dose 61.2 ml/min Estimated GFR () 64.9 Estimated GFR (Non- 56.0 BUN/Creatinine Ratio 15.1 Random Glucose 53 mg/dl Calcium Level 8.1 mg/dl Magnesium Level 2.2 mg/dl Bedside Glucose 55 mg/dl 59 mg/dl 99 mg/dl Telemetry reviewed: Atrial flutter/fibrillation: Heart rate is better, but still somewhat elevated this morning. Averaging little bit over 100 Assessment and Plan #1. Atrial flutter: He has a long history of paroxysmal atrial flutter, he is unaware of the rate in general. His rate controlling meds were held on admission , however he is now back on them and his heart rate remains somewhat elevated. His HR was reasonably well-controlled with oral diltiazem and metoprolol at home , but a little bit fast here, possibly because of his anemia. I think I will increase his diltiazem slightly. We will probably be forced to hold anticoagulation for now. #2. GI bleed: [place] to not require GI evaluation now. We have been trying for a long time to do an outpatient evaluation and we have not been able to. At this point I don't think we can continue anticoagulation, placing him. I would recommend off of anticoagulation. Thank You
--- NOTE | 2017-02-08 11:23 | Pharmacy Progress Note ---
Glycemic Control: Progress Nt Date of Service Feb 08, 2017. Scope Glycemic Pharmacist consulted by Dr Guzmán on 02/06/17 for glycemic control and to write orders per [facility] inpatient glycemic control protocol. Objective Accuchecks BSG (last 24hrs): Test 02/07/17 16:46 02/07/17 20:27 02/08/17 06:02 02/08/17 06:34 Bedside Glucose 124 mg/dl (70-99) 107 mg/dl (70-99) 55 mg/dl (70-99) Random Glucose 53 mg/dl (70-99) Test 02/08/17 06:48 02/08/17 07:10 02/08/17 10:56 Bedside Glucose 59 mg/dl (70-99) 99 mg/dl (70-99) 149 mg/dl (70-99) Laboratory Data (last 24hrs) Test 02/08/17 06:02 Anion Gap 5.0 mmol/L BUN/Creatinine Ratio 15.1 Blood Urea Nitrogen 18 mg/dl Creatinine 1.20 mg/dl Potassium Level 4.5 mmol/L Sodium Level 145 mmol/L HbA1c: Test 02/07/17 06:10 Hemoglobin A1c 6.3 % (4.5-5.6) H Recent Pertinent Medications Outpatient Anti-diabetic Regimen: * Lantus SQ BID * 80 units in AM * 90 units in PM * NovoLog SQ SS * Glipizide ER 5mg PO daily * A1c = 7.6% 10/2016 --> 6.3% The patient is currently receiving: * Basal insulin: Lantus currently being held * Correctional Insulin: NovoLog Correction per scale AC/HS Goal Range: Low 140 mg/dL - High 180 mg/dL Correction Factor: 30 mg/dL/unit * Prandial insulin: Per carb ratio of 1 unit per -- grams CHO consumed * Oral Agents: None at this time (held at admission) Risk Factors for Insulin Resistance: * IVF: Pantoprazole infusion (mixed in dextrose) * Diet: T2DM, tolerating well per nursing documentation Assessment & Plan ASSESSMENT: * ADA & AACE recommend a goal blood sugar range 140-180 mg/dl for the majority of critically ill & non-critically ill patients. However, more stringent targets may be selected in individual cases. 02/07/17 * BSGs trended downward and the patient became hypoglycemic this AM * no insulin given in house - may be from long acting basal insulin (and sulfonylurea) prior to admission coupled with decreased PO intake? * dextrose IV fluids started * breakfast consumed and not covered with NovoLog --> lunch BSG continues to be below goal * For the aforementioned reasons, we will continue to hold both basal and prandial coverage until hypoglycemia resolves * Continue NovoLog correctional insulin if patient becomes hyperglycemic only * Home regimen highly weighted on basal insulin * may be at risk for hypoglycemia as o/p (also see A1c decrease over last 4 months) 02/08/17 * Hypoglycemia continued into this morning despite holding basal and bolus insulins * Continue to hold basal insulin until a clear trend upward in BSGS - at that time resume at a reduced dose compared to home regimen * NovoLog parameters have not yet been tried secondary to BSGs below goal range * continue same parameters - may need to resume CHO ratio if BSGS begin to trend upwards PLAN FOR INPATIENT GLYCEMIC CONTROL: * HOLD basal insulin at this time * when restarted - reduce dose * Continue NovoLog AC and HS * Correction factor: 30mg/dL/unit * Carb ratio: hold at this time (recommend 1:10 if/when resumed) * Goal range: 140-180mg/dL per ADA recommendations * A1c - current * add to discharge instructions RECOMMENDATIONS FOR DISCHARGE: * awaited, may need redistribution of basal insulin doses if hypoglycemia occurring as o/p * Please note that the plan above was derived based on current level of insulin resistance and hospital stress. These recommendations are appropriate for inpatient admission only. Plan of care upon discharge will need to be reassessed to avoid potential outpatient hypo/hyperglycemia. Thank you.
[2017-02-08 11:34] VITALS: BP 102/67; PULSE 126; TEMP 36.9; O2SAT 94
--- NOTE | 2017-02-08 12:32 | Progress Note ---
Internal Med Progress Note Date of Service: Feb 08, 2017. Provider Documentation: SUBJECTIVE: Patient is seen and examined at bedside. States feeling well. Denies chest pain , SOB, palpitations, dizziness, abd pain. Had BM today but denies any bleeding. Currently in A.flutter with RVR but asymptomatic. Received 2 units PRBC since hospitalization. Hb:9.2 today. Hypoglycemic this morning but improved. OBJECTIVE: Vital Signs-as noted below Physical Exam: General Appearance:Moderately built and nourished, no apparent distress Head: normocephalic, Atraumatic Eyes: normal inspection, EOMI, PERRLA Neck: supple, Trachea midline Respiratory/Chest: Normal breath sounds, CTA, No accessory muscle use Cardiovascular: Irregularly Irregular. No audible murmur Abdomen/GI:Soft, Non tender, Bowel sounds present, Obese Extremities/Musculoskelatal:normal inspection, Trace b/l pedal edema Neurologic/Psych:AAOX3, grossly no focal neurological deficits Skin: normal color, warm Lab data as noted below. ASSESSMENT & PLAN: Acute on Chronic GI bleeding On Xarelto for Afib DD: Polyps, diverticulosis, AVMs, hemorrhoids States being on Aspirin at home but not seen on home meds States having colonoscopy X 2 recently but could not be completed secondary to uncontrolled afib Denies use of NSAIDs Positive FOBT Hb:7.5 on admission. Currently Hb:9.2 Baseline Hb: around 13.0 S/P 2 units PRBCs On Protonix drip, IVF Hold xarelto Monitor H&H, Transfuse PRN GI consulted Currently no active bleeding A.flutter with RVR H/O Afib on chronic anticoagulation EKG: Atrial flutter Currently asymptomatic Restart diltiazem an Metoprolol which were held secondary to low BP Continue to hold Xarelto due to GI bleed Will consult cardiology Monitor electrolytes. check Mag levels YOUSUF Likely prerenal creatine on admission 1.6. Baseline: 1.1 Cr levels improved to 1.3 today On IVF Hold Lisinopril and HCTZ for now Avoid nephrotoxic agents Monitor renal function HTN Presented with hypotension Will resume Lisinopril and HCTZ when BP better Continue DM II A1C:6.3 hold oral meds ISS, accu checks pharmacy consult for glycemic management Hypoglycemic this morning On D5NSS. Will change IVF if hypoglycemia improves Hx Prostate CA Denies any hematuria UA:pending DVT PX: SCDs due to GI bleed CODE STATUS: Pt level 3 (Full code, NO [facility] ventilation) Vital Signs: Date Time Temp Pulse Resp B/P Pulse Ox O2 Delivery O2 Flow Rate FiO2 02/08/17 12:00 Room Air 02/08/17 11:34 36.9 126 28 102/67 94 Room Air 02/08/17 08:00 Room Air 02/08/17 07:24 36.7 131 24 129/79 95 Room Air 02/08/17 04:06 36.5 109 19 119/68 94 Room Air 02/08/17 04:00 Room Air 02/08/17 00:01 Room Air 02/07/17 23:12 36.8 108 22 114/61 92 Room Air 02/07/17 20:00 Room Air 02/07/17 20:00 37.2 73 18 100/58 93 Room Air 02/07/17 16:00 96 Room Air 02/07/17 15:57 37.4 93 20 98/57 93 Room Air 02/07/17 14:50 36.8 92 20 102/60 96 02/07/17 13:46 36.4 107 24 138/80 95 02/07/17 13:16 36.7 118 17 115/65 94 Lab Results: Results Past 24 Hours Test 02/07/17 16:46 02/07/17 17:03 02/07/17 20:27 02/08/17 06:02 Range/Units Bedside Glucose 124 107 70-99 mg/dl Hemoglobin 10.0 9.9 14.0-18.0 g/dL Hematocrit 30.5 30.6 42-52 % Sodium Level 145 136-145 mmol/L Potassium Level 4.5 3.5-5.1 mmol/L Chloride Level 111 98-107 mmol/L Carbon Dioxide Level 29 21-32 mmol/L Anion Gap 5.0 3-11 mmol/L Blood Urea Nitrogen 18 7-18 mg/dl Creatinine 1.20 0.60-1.40 mg/dl Est Creatinine Clear Calc Drug Dose 61.2 ml/min Estimated GFR () 64.9 Estimated GFR (Non- 56.0 BUN/Creatinine Ratio 15.1 10-20 Random Glucose 53 70-99 mg/dl Calcium Level 8.1 8.5-10.1 mg/dl Magnesium Level 2.2 1.8-2.4 mg/dl Test 02/08/17 06:34 02/08/17 06:48 02/08/17 07:10 02/08/17 10:56 Range/Units Bedside Glucose 55 59 99 149 70-99 mg/dl
--- NOTE | 2017-02-08 12:45 | Progress Note ---
Internal Med Progress Note Date of Service: Feb 08, 2017. Provider Documentation: SUBJECTIVE: Patient is seen and examined at bedside. States doing well. Was hypoglycemic this morning but asymptomatic. Denies chest pain, SOB, palpitations, dizziness, abd pain. Had BM today but denies any bleeding. OBJECTIVE: Vital Signs-as noted below Physical Exam: General Appearance:Moderately built and nourished, no apparent distress Head: normocephalic, Atraumatic Eyes: normal inspection, EOMI, PERRLA Neck: supple, Trachea midline Respiratory/Chest: Normal breath sounds, CTA, No accessory muscle use Cardiovascular: Irregularly Irregular. No audible murmur Abdomen/GI:Soft, Non tender, Bowel sounds present, Obese Extremities/Musculoskelatal:normal inspection, Trace b/l pedal edema Neurologic/Psych:AAOX3, grossly no focal neurological deficits Skin: normal color, warm Lab data as noted below. ASSESSMENT & PLAN: Acute on Chronic GI bleeding On Xarelto for Afib DD: Polyps, diverticulosis, AVMs, hemorrhoids States being on Aspirin at home but not seen on home meds States having colonoscopy X 2 recently but could not be completed secondary to uncontrolled afib Denies use of NSAIDs Positive FOBT Hb:7.5 on admission. Currently Hb:9.9 Baseline Hb: around 13.0 S/P 2 units PRBCs S/P Protonix ggt and IVF, Continue PPI BID Hold xarelto No plan for emergent colonoscopy Monitor H&H, Transfuse PRN Appreciate GI input Currently no active bleeding Needs colonoscopy as outpatient with Dr.Case Dominguez with RVR H/O Afib on chronic anticoagulation EKG: Atrial flutter Currently asymptomatic Continue diltiazem an Metoprolol per cardiology Plan to be discharged off anticoagulation secondary to recurrent GI bleed Appreciate cardiology input Monitor electrolytes. YOUSUF Likely prerenal creatine on admission 1.6. Baseline: 1.1 Cr: 1.2 today DC IVF Hold Lisinopril and HCTZ for now Avoid nephrotoxic agents Monitor renal function HTN Presented with hypotension Plan to resume Lisinopril and HCTZ when BP better Continue monitor DM II A1C:6.3 hold oral meds ISS, accu checks pharmacy consult for glycemic management Has hypoglycemic episodes in AM Check Q6H accu checks Hypoglycemia protocol Hx Prostate CA Denies any hematuria UA:pending DVT PX: SCDs due to GI bleed CODE STATUS: Pt level 3 (Full code, NO mech ventilation) DISPOSITION: Continue to monitor in Tele Vital Signs: Date Time Temp Pulse Resp B/P Pulse Ox O2 Delivery O2 Flow Rate FiO2 02/08/17 12:00 Room Air 02/08/17 11:34 36.9 126 28 102/67 94 Room Air 02/08/17 08:00 Room Air 02/08/17 07:24 36.7 131 24 129/79 95 Room Air 02/08/17 04:06 36.5 109 19 119/68 94 Room Air 02/08/17 04:00 Room Air 02/08/17 00:01 Room Air 02/07/17 23:12 36.8 108 22 114/61 92 Room Air 02/07/17 20:00 Room Air 02/07/17 20:00 37.2 73 18 100/58 93 Room Air 02/07/17 16:00 96 Room Air 02/07/17 15:57 37.4 93 20 98/57 93 Room Air 02/07/17 14:50 36.8 92 20 102/60 96 02/07/17 13:46 36.4 107 24 138/80 95 02/07/17 13:16 36.7 118 17 115/65 94 Lab Results: Results Past 24 Hours Test 02/07/17 16:46 02/07/17 17:03 02/07/17 20:27 02/08/17 06:02 Range/Units Bedside Glucose 124 107 70-99 mg/dl Hemoglobin 10.0 9.9 14.0-18.0 g/dL Hematocrit 30.5 30.6 42-52 % Sodium Level 145 136-145 mmol/L Potassium Level 4.5 3.5-5.1 mmol/L Chloride Level 111 98-107 mmol/L Carbon Dioxide Level 29 21-32 mmol/L Anion Gap 5.0 3-11 mmol/L Blood Urea Nitrogen 18 7-18 mg/dl Creatinine 1.20 0.60-1.40 mg/dl Est Creatinine Clear Calc Drug Dose 61.2 ml/min Estimated GFR () 64.9 Estimated GFR (Non- 56.0 BUN/Creatinine Ratio 15.1 10-20 Random Glucose 53 70-99 mg/dl Calcium Level 8.1 8.5-10.1 mg/dl Magnesium Level 2.2 1.8-2.4 mg/dl Test 02/08/17 06:34 02/08/17 06:48 02/08/17 07:10 02/08/17 10:56 Range/Units Bedside Glucose 55 59 99 149 70-99 mg/dl
[2017-02-08 15:36] VITALS: BP 96/59; PULSE 71; TEMP 37; O2SAT 94
[2017-02-08] MEDS ORDERED: INSULIN ASPART 100 UNITS/ML 3 ML PEN SC SCH (18:00)
[2017-02-08 19:48] VITALS: BP 116/69; PULSE 88; TEMP 36.9; O2SAT 93
[2017-02-08] MEDS: NORTRIPTYLINE HCL 10 MG CAP PO SCH (21:27)
[2017-02-08] MEDS: PANTOprazole INJ 40 MG in SYRINGE 0 ML IV SCH (21:27)
[2017-02-08] MEDS: INSULIN GLARGINE SOLOSTAR 100 UNITS/ML 3 ML PEN SC SCH (21:57)
[2017-02-08 23:35] VITALS: BP 116/67; PULSE 104; TEMP 37.1; O2SAT 94
[2017-02-09] MEDS ORDERED: INSULIN ASPART 100 UNITS/ML 3 ML PEN SC SCH (02:00)
[2017-02-09 03:41] VITALS: BP 128/75; PULSE 120; TEMP 37.1; O2SAT 94
[2017-02-09 07:29] VITALS: BP 135/87; PULSE 138; TEMP 36.5; O2SAT 95
[2017-02-09 07:36] LABS: HEMATOCRIT 32.1 % (42-52)
[2017-02-09 07:58] LABS: BUN/CREATININE RATIO 13.3 (10-20); CALCIUM 8.1 mg/dl (8.5-10.1); CREATININE 1.5 mg/dl (0.60-1.40); POTASSIUM 4.5 mmol/L (3.5-5.1)
[2017-02-09] MEDS: RANITIDINE HCL 150 MG TAB PO SCH (08:01)
[2017-02-09] MEDS: PANTOprazole INJ 40 MG in SYRINGE 0 ML IV SCH (08:01)
[2017-02-09] MEDS: DILTIAZEM HCL 240 MG CAPCR PO SCH (08:01)
[2017-02-09] MEDS: TOCOPHERYL, DL-ALPHA 400 INTER.UNIT CAP PO SCH (08:02)
[2017-02-09] MEDS: FLUOXETINE HCL 10 MG CAP PO SCH (08:02)
[2017-02-09] MEDS: FERROUS SULFATE 325 MG TAB PO SCH ×2 (08:02→17:39)
[2017-02-09] MEDS: CYANOCOBALAMIN 500 MCG TAB (VIT B-12) PO SCH (08:02)
[2017-02-09] MEDS: METOPROLOL SUCC 50MG EXT REL TAB PO SCH (08:02)
[2017-02-09] MEDS: ROSUVASTATIN CALCIUM 20 MG TAB PO SCH (08:03)
[2017-02-09] MEDS: INSULIN GLARGINE SOLOSTAR 100 UNITS/ML 3 ML PEN SC SCH ×2 (08:04→20:24)
[2017-02-09] MEDS: INSULIN ASPART 100 UNITS/ML 3 ML PEN SC SCH ×4 (08:05→20:21)
--- NOTE | 2017-02-09 09:02 | Cardiology Follow-Up ---
Subjective Date of Service: Feb 09, 2017. Pt evaluation today including: conversation w/ patient, physical exam, lab review, review of studies, review of inpatient medication list History of Present Illness This is a very pleasant 80-year-old gentleman who unfortunately has a very poor memory and therefore his history is unreliable. He has a history of prostate cancer. He was scheduled for a colonoscopy and was found to be in atrial flutter , I believe this was in 2013. He was asymptomatic and had no history of this. He was sent to the emergency room where he was documented to be in atrial flutter with a rapid heart rate of about 140 bpm. He was started on beta blockade and sent home, however he did convert to sinus rhythm while in the emergency room, this occurred after a quite brief episode of atrial flutter. He wore an event recorder to see whether he had frequent or rapid atrial arrhythmias, which he wore from 10/09/2014 through 11/12/2014. He did have frequent paroxysmal atrial fibrillation or flutter, mostly on a daily basis, averaging 5-7% of the time. His heart rate was rapid at times, around 140 bpm during the episodes although they were asymptomatic. He was therefore started on Xarelto 20 mg daily on 12/08/2014. He was subsequently hospitalized for urosepsis, and his lisinopril, Xarelto and aspirin were all discontinued. I believe his Xarelto was held in plans for colonoscopy however that was not arranged I therefore restarted it and held it prior to his colonoscopy which was attempted on 12/28/2015. He tells me that he was told not to take his diltiazem for his metoprolol that morning, he was in atrial fibrillation with a rapid heart rate at the time the procedure and therefore it was canceled. He was seen on 02/06/2017 for intermittent rectal bleeding which has been progressive. He was found to have severe anemia as well as heme-positive stools. He was therefore admitted. His anticoagulation is now on hold. He was seen by GI regarding his bleeding who felt that this should be an outpatient workup. He has no complaints today, he is back on his rate controlling medications but his heart rate remains elevated, I increased his diltiazem yesterday but that we'll take effect today. Social History Smoking Status: Never Smoker History of Alcohol Use: No Review of Systems Respiratory: No cough, No dyspnea on exertion, No shortness of breath, No wheezing Cardiac: No PND, No chest pain, No edema, No orthopnea, No palpitations Objective Vital Signs Past 12 Hours Date Time Temp Pulse Resp B/P Pulse Ox O2 Delivery O2 Flow Rate FiO2 02/09/17 07:29 36.5 138 24 135/87 95 Room Air 02/09/17 04:06 Room Air 02/09/17 03:41 37.1 120 24 128/75 94 Room Air 02/09/17 00:04 Room Air 02/08/17 23:35 37.1 104 20 116/67 94 Room Air Last Recorded Weight-Kilograms: 121.700 Intake & Output 8-Hour Column 02/08/17 02/09/17 02/09/17 16:00 00:00 08:00 Intake Total 860 ml Balance 860 ml 24-Hour Column 02/09/17 08:00 Intake Total 860 ml Balance 860 ml Physical Exam Constitutional: General Apperance: obese Level of Distress: NAD Lungs: Respiratory effort: no dyspnea, good air movement Auscultation: breath sounds normal, no wheezing Cardiovascular: Heart Auscultation: no murmurs, no rubs, no gallops, tachycardia, irregular rate rhythm Peripheral Pulses: Bruits: none appreciated Extremities: no edema Data Laboratory Results: Last 24 Hours Test 02/08/17 10:56 02/08/17 16:11 02/08/17 20:29 02/09/17 02:01 Bedside Glucose 149 mg/dl 167 mg/dl 179 mg/dl 169 mg/dl Test 02/09/17 07:04 02/09/17 07:05 Bedside Glucose 144 mg/dl Hemoglobin 10.4 g/dL Hematocrit 32.1 % Sodium Level 141 mmol/L Potassium Level 4.5 mmol/L Chloride Level 107 mmol/L Carbon Dioxide Level 30 mmol/L Anion Gap 4.0 mmol/L Blood Urea Nitrogen 20 mg/dl Creatinine 1.50 mg/dl Est Creatinine Clear Calc Drug Dose 48.9 ml/min Estimated GFR () 49.5 Estimated GFR (Non- 42.7 BUN/Creatinine Ratio 13.3 Random Glucose 148 mg/dl Calcium Level 8.1 mg/dl Imaging: EKG: Telemetry reviewed: Assessment and Plan #1. Atrial flutter: He has a long history of paroxysmal atrial flutter, he is unaware of the rate in general. His rate controlling meds were held on admission , however he is now back on them and his heart rate remains somewhat elevated. His HR was reasonably well-controlled with oral diltiazem and metoprolol at home , fast here, possibly in part because of his anemia. I did increase his diltiazem slightly but today will be the first day of that increase. We will probably be forced to hold anticoagulation for now. #2. GI bleed: [place] to not require GI evaluation now. We have been trying for a long time to do an outpatient evaluation and we have not been able to. At this point I don't think we can continue anticoagulation, placing him. I would recommend off of anticoagulation. Thank You
--- NOTE | 2017-02-09 09:40 | Gastroenterology Progress Note ---
Progress Note Date of Service: Feb 09, 2017 Subjective Pt evaluation today including: conversation w/ patient, physical exam, lab review, review of inpatient medication list Patient reports improved fatigue and no significant shortness of breath. Denies any further bleeding while in the hospital. Cardiology has evaluated the patient and there are plans to continue to hold Xarelto. H&H remains stable. Dr. Jordan discussed outpatient GI work up. Patient states he is amenable to outpatient colonoscopy without sedation. Review of Systems Constitutional: + see HPI Respiratory: + see HPI Cardiac: No chest pain, No palpitations Abdomen: No problem reported Psych: No problem reported Medications Current Inpatient Medications Medications (Trade) Dose Ordered Sig/Melany Route Start Time Stop Time Status Last Admin Dose Admin Acetaminophen (Tylenol Tab) 650 mg Q4H PRN PO 02/06/17 19:15 03/08/17 19:14 Ondansetron HCl (Zofran Inj) 4 mg Q6H PRN IV 02/06/17 19:15 03/08/17 19:14 Polyethylene (Miralax Powder Packet) 17 gm DAILY PRN PO 02/06/17 19:15 03/08/17 19:14 Glucose (Glucose 40% Gel) 15-30 GRAMS 15 GRAMS... UD PRN PO 02/06/17 19:15 03/08/17 19:14 Glucose (Glucose Chew Tab) 4-8 Tablets 4 Tabl... UD PRN PO 02/06/17 19:15 03/08/17 19:14 Dextrose (Dextrose 50% 50ML Syringe) 25-50ML OF 50% DW IV FOR... UD PRN IV 02/06/17 19:15 03/08/17 19:14 Glucagon (Glucagon Inj) 1 mg UD PRN SQ 02/06/17 19:15 03/08/17 19:14 Miscellaneous Information (Consult Glycemic Management Pharmacy) 1 ea UD PRN N/A 02/06/17 21:03 03/08/17 21:02 Ferrous Sulfate (Feosol Tab) 325 mg BIDM PO 02/07/17 07:30 03/09/17 07:29 02/09/17 08:02 325 MG Fluoxetine HCl (Prozac Cap) 10 mg DAILY PO 02/07/17 09:00 03/09/17 08:59 02/09/17 08:02 10 MG Albuterol/ Ipratropium (Combivent Respimat Inh) 1 puffs Q6H PRN INH 02/06/17 20:45 03/08/17 20:44 Nortriptyline HCl (Pamelor Cap) 20 mg HS PO 02/06/17 21:00 03/08/17 20:59 02/08/17 21:27 20 MG Ranitidine HCl (zANTac TAB) 150 mg QAM PO 02/07/17 09:00 03/09/17 08:59 02/09/17 08:01 150 MG Cyanocobalamin (Vitamin B-12 Tab) 1,000 mcg QAM PO 02/07/17 09:00 03/09/17 08:59 02/09/17 08:02 1,000 MCG Rosuvastatin Calcium (Crestor Tab) 40 mg QAM PO 02/07/17 09:00 03/09/17 08:59 02/09/17 08:03 40 MG ci-Vsdey-Iekespglfz Acetate (Vitamin E Cap) 400 interunit DAILY PO 02/07/17 09:00 03/09/17 08:59 02/09/17 08:02 400 INTERUNIT Metoprolol Succinate (Toprol Xl Tab) 100 mg DAILY PO 02/07/17 08:15 03/09/17 08:14 02/09/17 08:02 100 MG Diltiazem HCl (Cardizem Cd Cap) 240 mg QAM PO 02/09/17 09:00 03/11/17 08:59 02/09/17 08:01 240 MG Insulin Glargine SEE PROTOCOL BID SC 02/08/17 21:00 03/10/17 20:59 02/09/17 08:04 10 UNIT Pantoprazole Sodium/Syringe (Protonix Inj/ Syringe) 10 ml @ 5 mls/min BID IV 02/08/17 21:00 03/10/17 20:59 02/09/17 08:01 5 MLS/MIN Insulin Aspart (novoLOG ASPART) SLIDING SCALE If C... ACHS SC 02/08/17 16:15 03/10/17 16:14 02/09/17 08:05 2 UNITS Insulin Aspart (novoLOG ASPART) SLIDING SCALE If C... DAILY@0200 ID 02/09/17 02:00 03/11/17 01:59 Objective Vital Signs Date Time Temp Pulse Resp B/P Pulse Ox O2 Delivery O2 Flow Rate FiO2 02/09/17 07:29 36.5 138 24 135/87 95 Room Air 02/09/17 04:06 Room Air 02/09/17 03:41 37.1 120 24 128/75 94 Room Air 02/09/17 00:04 Room Air 02/08/17 23:35 37.1 104 20 116/67 94 Room Air 02/08/17 20:41 Room Air 02/08/17 19:48 36.9 88 22 116/69 93 02/08/17 16:00 Room Air 02/08/17 15:36 37.0 71 22 96/59 94 Room Air 02/08/17 12:00 Room Air 02/08/17 11:34 36.9 126 28 102/67 94 Room Air Physical Exam General Appearance: WD/WN, no apparent distress Eyes: EOMI Respiratory/Chest: lungs clear, normal breath sounds, no respiratory distress Cardiovascular: + irregularly irregular Abdomen: normal bowel sounds, non tender, soft Neurologic/Psych: alert, normal mood/affect, oriented x 3 Skin: warm/dry Laboratory Results Last 24 Hours Test 02/08/17 10:56 02/08/17 16:11 02/08/17 20:29 02/09/17 02:01 Bedside Glucose 149 mg/dl 167 mg/dl 179 mg/dl 169 mg/dl Test 02/09/17 07:04 02/09/17 07:05 Bedside Glucose 144 mg/dl Hemoglobin 10.4 g/dL Hematocrit 32.1 % Sodium Level 141 mmol/L Potassium Level 4.5 mmol/L Chloride Level 107 mmol/L Carbon Dioxide Level 30 mmol/L Anion Gap 4.0 mmol/L Blood Urea Nitrogen 20 mg/dl Creatinine 1.50 mg/dl Est Creatinine Clear Calc Drug Dose 48.9 ml/min Estimated GFR () 49.5 Estimated GFR (Non- 42.7 BUN/Creatinine Ratio 13.3 Random Glucose 148 mg/dl Calcium Level 8.1 mg/dl Assessment and Plan Patient is a 81 year-old male with a history of atrial fibrillation and atrial flutter presenting with rectal bleeding and profound anemia improved after blood transfusion. No further reports of bleeding off Xarelto. 1. Continue BID Protonix upon discharge. 2. Outpatient colonoscopy without sedation. 3. Supportive care per primary team. Agree with MADISON Suarez as above Abd: Soft, NT, ND, +BS Multiple comorbidities, therefore, will consider outpatient colonoscopy without sedation upon discharge Continue supportive care
[2017-02-09 12:02] VITALS: BP 135/75; PULSE 134; TEMP 37; O2SAT 93
--- NOTE | 2017-02-09 12:07 | Progress Note ---
Internal Med Progress Note Date of Service: Feb 09, 2017. Provider Documentation: SUBJECTIVE: Patient is seen and examined at bedside. States weakness has improved. Feels well. Denies any blood in stools since hospitalization. Denies chest pain, SOB, palpitations, dizziness, abd pain. His heart rate is high but is asymptomatic. OBJECTIVE: Vital Signs-as noted below Physical Exam: General Appearance:Moderately built and nourished, no apparent distress Head: normocephalic, Atraumatic Eyes: normal inspection, EOMI, PERRLA Neck: supple, Trachea midline Respiratory/Chest: Normal breath sounds, CTA, No accessory muscle use Cardiovascular: Irregularly Irregular. +Tachycardia, No audible murmur Abdomen/GI:Soft, Non tender, Bowel sounds present, Obese Extremities/Musculoskelatal:normal inspection, Trace b/l pedal edema Neurologic/Psych:AAOX3, grossly no focal neurological deficits Skin: normal color, warm Lab data as noted below. ASSESSMENT & PLAN: Acute on Chronic GI bleeding On Xarelto for Afib DD: Polyps, diverticulosis, AVMs, hemorrhoids States being on Aspirin at home but not seen on home meds States having colonoscopy X 2 recently but could not be completed secondary to uncontrolled afib Denies use of NSAIDs Positive FOBT Hb:7.5 on admission. Currently Hb:10.4 Baseline Hb: around 13.0 S/P 2 units PRBCs S/P Protonix ggt and IVF, Continue PO PPI BID Plan to discontinue xarelto upon discharge No plan for emergent colonoscopy Monitor H&H, Transfuse PRN Appreciate GI input Currently no active bleeding Needs colonoscopy as outpatient with (Colonoscopy without sedation) A.flutter with RVR H/O Afib was on chronic anticoagulation EKG: Atrial flutter Currently asymptomatic Continue diltiazem an Metoprolol per cardiology No plan to restart anticoagulation upon discharge secondary to recurrent GI bleed Appreciate cardiology input Monitor electrolytes. YOUSUF Likely prerenal creatine on admission 1.6. Baseline: 1.1 Cr: 1.5 today Restart IVF Hold Lisinopril and HCTZ for now Avoid nephrotoxic agents Monitor renal function HTN Presented with hypotension Plan to resume Lisinopril and HCTZ when BP better Continue monitor DM II A1C:6.3 hold oral meds ISS, accu checks pharmacy consult for glycemic management Has hypoglycemic episodes yesterday Check Q6H accu checks Hypoglycemia protocol Plan to resume Lantus when appropriate May need endocrinology evaluation as outpatient Hx Prostate CA Denies any hematuria UA:+ Hematuria Needs follow up with Urology as outpatient DVT PX: SCDs due to GI bleed CODE STATUS: Pt level 3 (Full code, NO mech ventilation) DISPOSITION: Continue to monitor in Tele Vital Signs: Date Time Temp Pulse Resp B/P Pulse Ox O2 Delivery O2 Flow Rate FiO2 02/09/17 12:02 37.0 134 20 135/75 93 Room Air 02/09/17 12:00 Room Air 02/09/17 08:00 Room Air 02/09/17 07:29 36.5 138 24 135/87 95 Room Air 02/09/17 04:06 Room Air 02/09/17 03:41 37.1 120 24 128/75 94 Room Air 02/09/17 00:04 Room Air 02/08/17 23:35 37.1 104 20 116/67 94 Room Air 02/08/17 20:41 Room Air 02/08/17 19:48 36.9 88 22 116/69 93 02/08/17 16:00 Room Air 02/08/17 15:36 37.0 71 22 96/59 94 Room Air Lab Results: Results Past 24 Hours Test 02/08/17 16:11 02/08/17 20:29 02/09/17 02:01 02/09/17 07:04 Range/Units Bedside Glucose 167 179 169 144 70-99 mg/dl Test 02/09/17 07:05 02/09/17 11:03 Range/Units Hemoglobin 10.4 14.0-18.0 g/dL Hematocrit 32.1 42-52 % Sodium Level 141 136-145 mmol/L Potassium Level 4.5 3.5-5.1 mmol/L Chloride Level 107 98-107 mmol/L Carbon Dioxide Level 30 21-32 mmol/L Anion Gap 4.0 3-11 mmol/L Blood Urea Nitrogen 20 7-18 mg/dl Creatinine 1.50 0.60-1.40 mg/dl Est Creatinine Clear Calc Drug Dose 48.9 ml/min Estimated GFR () 49.5 Estimated GFR (Non- 42.7 BUN/Creatinine Ratio 13.3 10-20 Random Glucose 148 70-99 mg/dl Calcium Level 8.1 8.5-10.1 mg/dl Bedside Glucose 185 70-99 mg/dl
[2017-02-09] MEDS: SODIUM CHLORIDE 0.9% 1000ML 1,000 ML IV SCH (12:55)
--- NOTE | 2017-02-09 15:03 | Pharmacy Progress Note ---
Glycemic Control: Progress Nt Date of Service Feb 09, 2017. Scope Glycemic Pharmacist consulted by Dr Guzmán on 02/06/2017 for glycemic control and to write orders per [facility] inpatient glycemic control protocol. Objective Accuchecks BSG (last 24hrs): Test 02/08/17 10:56 02/08/17 16:11 02/08/17 20:29 02/09/17 02:01 Bedside Glucose 149 mg/dl (70-99) 167 mg/dl (70-99) 179 mg/dl (70-99) 169 mg/dl (70-99) Test 02/09/17 07:04 02/09/17 07:05 Bedside Glucose 144 mg/dl (70-99) Random Glucose 148 mg/dl (70-99) Laboratory Data (last 24hrs) Test 02/09/17 07:05 Anion Gap 4.0 mmol/L BUN/Creatinine Ratio 13.3 Blood Urea Nitrogen 20 mg/dl Creatinine 1.50 mg/dl Potassium Level 4.5 mmol/L Sodium Level 141 mmol/L HbA1c: Test 02/07/17 06:10 Hemoglobin A1c 6.3 % (4.5-5.6) H Recent Pertinent Medications Outpatient Anti-diabetic Regimen: * Lantus 80 units SQ qAM and 90 units qPM; Novolog sliding scale with CF of 25 and then Glipizide ER 5 mg PO daily * A1c = 6.3 % 02/07/2017 The patient is currently receiving: * Basal insulin: Lantus 0-10 units every 12 hours (0 units if blood sugar less than 140 mg/dL and 10 units if greater than 140 mg/dL) * Correctional Insulin: Novolog Correction per scale ACHS Goal Range: Low 140 mg/dL - High 180 mg/dL Correction Factor: 30 mg/dL/unit * Prandial insulin: Per carb ratio of 1 unit per 12 grams CHO consumed Risk Factors for Insulin Resistance: * Diet: type 2 diet Assessment & Plan ASSESSMENT: * ADA & AACE recommend a goal blood sugar range 140-180 mg/dl for the majority of critically ill & non-critically ill patients. However, more stringent targets may be selected in individual cases. 02/07/17 * BSGs trended downward and the patient became hypoglycemic this AM * no insulin given in house - may be from long acting basal insulin (and sulfonylurea) prior to admission coupled with decreased PO intake? * dextrose IV fluids started * breakfast consumed and not covered with NovoLog --> lunch BSG continues to be below goal * For the aforementioned reasons, we will continue to hold both basal and prandial coverage until hypoglycemia resolves * Continue NovoLog correctional insulin if patient becomes hyperglycemic only * Home regimen highly weighted on basal insulin * may be at risk for hypoglycemia as o/p (also see A1c decrease over last 4 months) 02/08/17 * Hypoglycemia continued into this morning despite holding basal and bolus insulins * Continue to hold basal insulin until a clear trend upward in BSGS - at that time resume at a reduced dose compared to home regimen * NovoLog parameters have not yet been tried secondary to BSGs below goal range * continue same parameters - may need to resume CHO ratio if BSGS begin to trend upwards 02/09/2017 * Mr Byers was within his goal range this morning at 144 mg/dL. The patient received 10 units of Lantus last night and this morning. He has not been hypoglycemic for 24 hours. I believe that the affects from the Lantus prior to admission have begun to wear off and now the patient's blood sugar will rise. I will increase the scale for the Lantus to 10-20 units BID (10 units for blood sugar under 180 mg/dL and 20 units for 180 mg/dL and above). * Novolog parameters were tested last night with dinner and appeared to maintain patient well until today. Will tighten the carbohydrate ratio and correction factor to reflect a larger insulin requirement. PLAN FOR INPATIENT GLYCEMIC CONTROL: * INCREASE TO Lantus 10-20 units SQ BID as defined above * TIGHTEN correction factor of 20 mg/dl/unit * TIGHTEN carb ratio of 1 unit per 6 grams CHO consumed * Continuing goal range of Low 140 mg/dL - High 180 mg/dL RECOMMENDATIONS FOR DISCHARGE: * Patient has excellent control of diabetes at home and may experience lows ( unable to check with patient due to confusion). Could consider discharge with lower insulin and discontinuation of Glipizide ER 5 mg daily due to its risks of hypoglycemia in the elderly. * Please note that the plan above was derived based on current level of insulin resistance and hospital stress. These recommendations are appropriate for inpatient admission only. Plan of care upon discharge will need to be reassessed to avoid potential outpatient hypo/hyperglycemia. Thank you.
[2017-02-09 16:01] VITALS: BP 118/71; PULSE 108; TEMP 37; O2SAT 93
[2017-02-09 19:05] VITALS: BP 119/76; PULSE 101; TEMP 37; O2SAT 95
[2017-02-09] MEDS: NORTRIPTYLINE HCL 10 MG CAP PO SCH (20:22)
[2017-02-09] MEDS: PANTOprazole SOD 40 MG TAB PO SCH (20:22)
[2017-02-09 23:32] VITALS: BP 130/73; PULSE 123; TEMP 36.6; O2SAT 93
[2017-02-10] MEDS: SODIUM CHLORIDE 0.9% 1000ML 1,000 ML IV SCH ×2 (01:24→16:10)
[2017-02-10 02:50] VITALS: BP 118/73; PULSE 111; TEMP 36.9; O2SAT 92
[2017-02-10 07:48] LABS: BASO % 0.3 %; BASO ABS # 0.03 K/uL (0-0.2); COMPLETE YES; HEMATOCRIT 33.1 % (42-52); IG% 0.1 %; LYMPH % 14.1 %; LYMPH ABS # 1.24 K/uL (1.2-3.4); MEAN CELL VOLUME 93.2 fL (80-100); MEAN CORPUSCULAR HEMOGLOBIN 29.6 pg (25-34); MEAN CORPUSCULAR HGB CONC 31.7 g/dl (32-36); MEAN PLATELET VOLUME 9.8 fL (7.4-10.4); MONO % 12.8 %; NEUT % 70.7 %; PLATELET COUNT 298 K/uL (130-400); RED BLOOD COUNT 3.55 M/uL (4.7-6.1); WHITE BLOOD COUNT 8.82 K/uL (4.8-10.8)
[2017-02-10 07:50] VITALS: BP 137/76; PULSE 128; TEMP 36.8; O2SAT 92
[2017-02-10] MEDS: INSULIN ASPART 100 UNITS/ML 3 ML PEN SC SCH ×4 (07:50→20:18)
[2017-02-10] MEDS: INSULIN GLARGINE SOLOSTAR 100 UNITS/ML 3 ML PEN SC SCH ×2 (07:51→20:22)
[2017-02-10] MEDS: PANTOprazole SOD 40 MG TAB PO SCH ×2 (07:52→20:19)
[2017-02-10] MEDS: ROSUVASTATIN CALCIUM 20 MG TAB PO SCH (07:52)
[2017-02-10] MEDS: FERROUS SULFATE 325 MG TAB PO SCH ×2 (07:53→16:08)
[2017-02-10] MEDS: DILTIAZEM HCL 240 MG CAPCR PO SCH (07:53)
[2017-02-10] MEDS: CYANOCOBALAMIN 500 MCG TAB (VIT B-12) PO SCH (07:53)
[2017-02-10] MEDS: FLUOXETINE HCL 10 MG CAP PO SCH (07:53)
[2017-02-10] MEDS: TOCOPHERYL, DL-ALPHA 400 INTER.UNIT CAP PO SCH (07:53)
[2017-02-10] MEDS: RANITIDINE HCL 150 MG TAB PO SCH (07:54)
[2017-02-10] MEDS: METOPROLOL SUCC 50MG EXT REL TAB PO SCH (07:54)
[2017-02-10 08:09] LABS: BUN/CREATININE RATIO 14.1 (10-20); CALCIUM 8.4 mg/dl (8.5-10.1); CREATININE 1.3 mg/dl (0.60-1.40); POTASSIUM 4.9 mmol/L (3.5-5.1)
--- NOTE | 2017-02-10 08:10 | Clinical Documentation Query ---
CLINICAL DOCUMENTATION QUERY 81 year old male with hx of atrial flutter on Xarelto who presents to the Emergency Room with complaints of constant rectal bleeding. In your clinical opinion is this patient being managed for: ( ) Xarelto related GI bleed treated with 2 units of PRBC's and DC of Xarelto. ( ) Other explanation of clinical findings (Please Explain) ( + ) Unable to determine (Please Define) ( ) Need to Discuss ( ) Not Agree Xarelto may have aggravated the bleeding but may not be the cause The medical record reflects the following clinical findings, treatment, and risk factors. 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 Terms such as "probable", "suspected", "likely", "questionable", "possible", or "still to be ruled out" are acceptable. IF IN AGREEMENT, YOU MUST DOCUMENT ABOVE DIAGNOSTIC STATEMENT IN DAILY PROGRESS NOTES AND DISCHARGE SUMMARY. This document is not part of the patient's record. Thank You, Frank Smalls, KEN [phone]
[2017-02-10 12:10] VITALS: BP 147/64; PULSE 120; TEMP 37.3; O2SAT 93
--- NOTE | 2017-02-10 12:18 | Progress Note ---
Internal Med Progress Note Date of Service: Feb 10, 2017. Provider Documentation: SUBJECTIVE: The patient was seen and examined Feel better Has minimal Palpitation at rest No CP,SOB OBJECTIVE: Vital Signs-as noted below Exam: General-No distress at rest Eyes-normal ENT-normal Neck-supple Lungs-Clear to auscultate bilaterally Heart-Irregular,2/6 ESM precordial area Abdomen-Benign,no masses Extremities-No edema Neuro-AAOx3 no focal neuro deficit Lab data as noted below. ASSESSMENT & PLAN: Acute on Chronic GI bleeding On Xarelto for Afib Likely from Polyps, diverticulosis, AVMs, hemorrhoids States having colonoscopy X 2 recently but could not be completed secondary to uncontrolled afib Denies use of NSAIDs Hb:7.5 on admission and received 3 units of PRBC S/P Protonix ggt and IVF, Continue PO PPI BID Appreciate GI input Needs colonoscopy as outpatient with (Colonoscopy without sedation) Hb >10 A.flutter with RVR H/O Afib was on chronic anticoagulation Continue diltiazem an Metoprolol per cardiology No plan to restart anticoagulation upon discharge secondary to recurrent GI bleed Appreciate cardiology input Remains in RVR but without any symptoms. YOUSUF Likely prerenal Improved with IVF Normalized now HTN Presented with hypotension Plan to resume Lisinopril and HCTZ when BP better Continue monitor DM II A1C:6.3 hold oral meds ISS, accu checks pharmacy consult for glycemic management Blood sugar is controlled Hx Prostate CA Denies any hematuria UA:+ Hematuria Needs follow up with Urology as outpatient DVT PX: SCDs due to GI bleed CODE STATUS: Pt level 3 (Full code, NO mech ventilation) DISPOSITION: Continue to monitor in Tele PT/OT evaluation Likely discharge in a day or two Vital Signs: Date Time Temp Pulse Resp B/P Pulse Ox O2 Delivery O2 Flow Rate FiO2 02/10/17 12:00 Room Air 02/10/17 08:00 Room Air 02/10/17 07:50 36.8 128 22 137/76 92 Room Air 02/10/17 04:00 Room Air 02/10/17 02:50 36.9 111 21 118/73 92 Room Air 02/10/17 00:00 Room Air 02/09/17 23:32 36.6 123 23 130/73 93 Room Air 02/09/17 20:00 Room Air 02/09/17 19:05 37.0 101 20 119/76 95 Room Air 02/09/17 16:01 Room Air 02/09/17 16:01 37.0 108 22 118/71 93 Room Air Lab Results: Results Past 24 Hours Test 02/09/17 16:27 02/09/17 20:18 02/10/17 06:40 02/10/17 07:15 Range/Units Bedside Glucose 171 138 138 70-99 mg/dl White Blood Count 8.82 4.8-10.8 K/uL Red Blood Count 3.55 4.7-6.1 M/uL Hemoglobin 10.5 14.0-18.0 g/dL Hematocrit 33.1 42-52 % Mean Corpuscular Volume 93.2 80-100 fL Mean Corpuscular Hemoglobin 29.6 25-34 pg Mean Corpuscular Hemoglobin Concent 31.7 32-36 g/dl Platelet Count 298 130-400 K/uL Mean Platelet Volume 9.8 7.4-10.4 fL Neutrophils (%) (Auto) 70.7 % Lymphocytes (%) (Auto) 14.1 % Monocytes (%) (Auto) 12.8 % Eosinophils (%) (Auto) 2.0 % Basophils (%) (Auto) 0.3 % Neutrophils # (Auto) 6.23 1.4-6.5 K/uL Lymphocytes # (Auto) 1.24 1.2-3.4 K/uL Monocytes # (Auto) 1.13 0.11-0.59 K/uL Eosinophils # (Auto) 0.18 0-0.5 K/uL Basophils # (Auto) 0.03 0-0.2 K/uL RDW Standard Deviation 49.1 36.4-46.3 fL RDW Coefficient of Variation 15.4 11.5-14.5 % Immature Granulocyte % (Auto) 0.1 % Immature Granulocyte # (Auto) 0.01 0.00-0.02 K/uL Sodium Level 143 136-145 mmol/L Potassium Level 4.9 3.5-5.1 mmol/L Chloride Level 109 98-107 mmol/L Carbon Dioxide Level 28 21-32 mmol/L Anion Gap 6.0 3-11 mmol/L Blood Urea Nitrogen 18 7-18 mg/dl Creatinine 1.30 0.60-1.40 mg/dl Est Creatinine Clear Calc Drug Dose 56.7 ml/min Estimated GFR () 58.9 Estimated GFR (Non- 50.8 BUN/Creatinine Ratio 14.1 10-20 Random Glucose 142 70-99 mg/dl Calcium Level 8.4 8.5-10.1 mg/dl Test 02/10/17 11:11 Range/Units Bedside Glucose 197 70-99 mg/dl
--- NOTE | 2017-02-10 12:57 | Pharmacy Progress Note ---
Glycemic Control: Progress Nt Date of Service Feb 10, 2017. Scope Glycemic Pharmacist consulted by Dr Guzmán on 02/06/17 for glycemic control and to write orders per [facility] inpatient glycemic control protocol. Objective Accuchecks BSG (last 24hrs): Test 02/09/17 16:27 02/09/17 20:18 02/10/17 06:40 02/10/17 07:15 Bedside Glucose 171 mg/dl (70-99) 138 mg/dl (70-99) 138 mg/dl (70-99) Random Glucose 142 mg/dl (70-99) Test 02/10/17 11:11 Bedside Glucose 197 mg/dl (70-99) Laboratory Data (last 24hrs) Test 02/10/17 07:15 Anion Gap 6.0 mmol/L BUN/Creatinine Ratio 14.1 Blood Urea Nitrogen 18 mg/dl Creatinine 1.30 mg/dl Potassium Level 4.9 mmol/L Sodium Level 143 mmol/L White Blood Count 8.82 K/uL Red Blood Count 3.55 M/uL Hemoglobin 10.5 g/dL Hematocrit 33.1 % Mean Corpuscular Volume 93.2 fL Mean Corpuscular Hemoglobin 29.6 pg Mean Corpuscular Hemoglobin Concent 31.7 g/dl Platelet Count 298 K/uL Mean Platelet Volume 9.8 fL Neutrophils (%) (Auto) 70.7 % Lymphocytes (%) (Auto) 14.1 % Monocytes (%) (Auto) 12.8 % Eosinophils (%) (Auto) 2.0 % Basophils (%) (Auto) 0.3 % Neutrophils # (Auto) 6.23 K/uL Lymphocytes # (Auto) 1.24 K/uL Monocytes # (Auto) 1.13 K/uL Eosinophils # (Auto) 0.18 K/uL Basophils # (Auto) 0.03 K/uL HbA1c: Test 02/07/17 06:10 Hemoglobin A1c 6.3 % (4.5-5.6) H Recent Pertinent Medications Outpatient Anti-diabetic Regimen: * Lantus 80 units SQ qAM and 90 units qPM; Novolog sliding scale with CF of 25 and then Glipizide ER 5 mg PO daily * A1c = 6.3 % 02/07/2017 The patient is currently receiving: * Basal insulin: Lantus 10-20 units every 12 hours (10 units if blood sugar less than 180 mg/dL and 20 units if greater than 180 mg/dL) * Correctional Insulin: Novolog Correction per scale ACHS Goal Range: Low 140 mg/dL - High 180 mg/dL Correction Factor: 20 mg/dL/unit * Prandial insulin: Per carb ratio of 1 unit per 6 grams CHO consumed Risk Factors for Insulin Resistance: * Diet: type 2 diet Assessment & Plan Assessment & Plan ASSESSMENT: * ADA & AACE recommend a goal blood sugar range 140-180 mg/dl for the majority of critically ill & non-critically ill patients. However, more stringent targets may be selected in individual cases. * Glycemic control adequate today. Lantus dose increased yesterday and we are not yet seeing the full effect of this. Mealtime coverage is adequate. PLAN FOR INPATIENT GLYCEMIC CONTROL: * Continue Lantus 10 units SQ BID * Continue correction factor of 20 mg/dl/unit * Continue carb ratio of 1 unit per 6 grams CHO consumed * Continuing goal range of Low 120 mg/dL - High 160 mg/dL RECOMMENDATIONS FOR DISCHARGE: * Patient has excellent control of diabetes at home and may experience lows ( unable to check with patient due to confusion). Could consider discharge with lower insulin and discontinuation of Glipizide ER 5 mg daily due to its risks of hypoglycemia in the elderly. * Please note that the plan above was derived based on current level of insulin resistance and hospital stress. These recommendations are appropriate for inpatient admission only. Plan of care upon discharge will need to be reassessed to avoid potential outpatient hypo/hyperglycemia. Thank you.
--- NOTE | 2017-02-10 14:54 | Cardiology Follow-Up ---
Subjective Date of Service: Feb 10, 2017. Pt evaluation today including: conversation w/ patient, physical exam, lab review, review of studies, review of inpatient medication list History of Present Illness This is a very pleasant 80-year-old gentleman who unfortunately has a very poor memory and therefore his history is unreliable. He has a history of prostate cancer. He was scheduled for a colonoscopy and was found to be in atrial flutter , I believe this was in 2013. He was asymptomatic and had no history of this. He was sent to the emergency room where he was documented to be in atrial flutter with a rapid heart rate of about 140 bpm. He was started on beta blockade and sent home, however he did convert to sinus rhythm while in the emergency room, this occurred after a quite brief episode of atrial flutter. He wore an event recorder to see whether he had frequent or rapid atrial arrhythmias, which he wore from 10/09/2014 through 11/12/2014. He did have frequent paroxysmal atrial fibrillation or flutter, mostly on a daily basis, averaging 5-7% of the time. His heart rate was rapid at times, around 140 bpm during the episodes although they were asymptomatic. He was therefore started on Xarelto 20 mg daily on 12/08/2014. He was subsequently hospitalized for urosepsis, and his lisinopril, Xarelto and aspirin were all discontinued. I believe his Xarelto was held in plans for colonoscopy however that was not arranged I therefore restarted it and held it prior to his colonoscopy which was attempted on 12/28/2015. He tells me that he was told not to take his diltiazem for his metoprolol that morning, he was in atrial fibrillation with a rapid heart rate at the time the procedure and therefore it was canceled. He was seen on 02/06/2017 for intermittent rectal bleeding which has been progressive. He was found to have severe anemia as well as heme-positive stools. He was therefore admitted. His anticoagulation is now on hold. He was seen by GI regarding his bleeding who felt that this should be an outpatient workup. He is back on his rate controlling medications but his heart rate remains elevated, I increased his diltiazem but he has had little response in his heart rate. Today he feels well and has no complaints. Social History Smoking Status: Never Smoker History of Alcohol Use: No Review of Systems Respiratory: + see HPI Cardiac: No chest pain, No palpitations Medications Cardiovascular: Item Value Date Time Diltiazem HCl 240 mg 02/09/17 0900 (Cardizem Cd Cap) QAM/PO 02/10/17 0753 Rosuvastatin 40 mg 02/07/17 0900 Calcium QAM/PO 02/10/17 0752 (Crestor Tab) Metoprolol 100 mg 02/07/17 0815 Succinate DAILY/PO 02/10/17 0754 (Toprol Xl Tab) Objective Vital Signs Past 12 Hours Date Time Temp Pulse Resp B/P Pulse Ox O2 Delivery O2 Flow Rate FiO2 02/10/17 12:10 37.3 120 20 147/64 93 Room Air 02/10/17 12:00 Room Air 02/10/17 08:00 Room Air 02/10/17 07:50 36.8 128 22 137/76 92 Room Air 02/10/17 04:00 Room Air Last Recorded Weight-Kilograms: 122.500 Intake & Output 8-Hour Column 02/09/17 02/10/17 02/10/17 16:00 00:00 08:00 Intake Total 495 ml 1127 ml 570 ml Balance 495 ml 1127 ml 570 ml 24-Hour Column 02/10/17 08:00 Intake Total 2192 ml Balance 2192 ml Physical Exam Constitutional: General Apperance: obese Level of Distress: NAD Lungs: Respiratory effort: no dyspnea, good air movement Auscultation: breath sounds normal, no wheezing Cardiovascular: Heart Auscultation: no murmurs, no rubs, no gallops, tachycardia, irregular rate rhythm Peripheral Pulses: Bruits: none appreciated Extremities: no edema Data Laboratory Results: Last 24 Hours Test 02/09/17 16:27 02/09/17 20:18 02/10/17 06:40 02/10/17 07:15 Bedside Glucose 171 mg/dl 138 mg/dl 138 mg/dl White Blood Count 8.82 K/uL Red Blood Count 3.55 M/uL Hemoglobin 10.5 g/dL Hematocrit 33.1 % Mean Corpuscular Volume 93.2 fL Mean Corpuscular Hemoglobin 29.6 pg Mean Corpuscular Hemoglobin Concent 31.7 g/dl Platelet Count 298 K/uL Mean Platelet Volume 9.8 fL Neutrophils (%) (Auto) 70.7 % Lymphocytes (%) (Auto) 14.1 % Monocytes (%) (Auto) 12.8 % Eosinophils (%) (Auto) 2.0 % Basophils (%) (Auto) 0.3 % Neutrophils # (Auto) 6.23 K/uL Lymphocytes # (Auto) 1.24 K/uL Monocytes # (Auto) 1.13 K/uL Eosinophils # (Auto) 0.18 K/uL Basophils # (Auto) 0.03 K/uL RDW Standard Deviation 49.1 fL RDW Coefficient of Variation 15.4 % Immature Granulocyte % (Auto) 0.1 % Immature Granulocyte # (Auto) 0.01 K/uL Sodium Level 143 mmol/L Potassium Level 4.9 mmol/L Chloride Level 109 mmol/L Carbon Dioxide Level 28 mmol/L Anion Gap 6.0 mmol/L Blood Urea Nitrogen 18 mg/dl Creatinine 1.30 mg/dl Est Creatinine Clear Calc Drug Dose 56.7 ml/min Estimated GFR () 58.9 Estimated GFR (Non- 50.8 BUN/Creatinine Ratio 14.1 Random Glucose 142 mg/dl Calcium Level 8.4 mg/dl Test 02/10/17 11:11 Bedside Glucose 197 mg/dl Telemetry reviewed: Atrial flutter with an overall somewhat rapid heart rate, no bradycardia Assessment and Plan #1. Atrial flutter: He has a long history of paroxysmal atrial flutter, he is unaware of the rate in general. His rate controlling meds were held on admission , however he is now back on them and his heart rate remains somewhat elevated. His HR was reasonably well-controlled with oral diltiazem and metoprolol at home , fast here, possibly in part because of his anemia. I did increase his diltiazem slightly but his heart rate remains elevated. I am going to increase his beta cynthia today. We will probably be forced to hold anticoagulation for now. #2. GI bleed: [place] to not require GI evaluation now. We have been trying for a long time to do an outpatient evaluation and we have not been able to. At this point I don't think we can continue anticoagulation. I would recommend keeping him off of anticoagulation until the source of his GI bleed is identified. Thank You
[2017-02-10] MEDS ORDERED: METOPROLOL TARTRATE 50 MG TAB PO ONE (15:15)
[2017-02-10 15:21] VITALS: BP 124/70; PULSE 90; TEMP 37.2; O2SAT 94
[2017-02-10 19:34] VITALS: BP 141/79; PULSE 108; TEMP 37.1; O2SAT 92
[2017-02-10] MEDS: NORTRIPTYLINE HCL 10 MG CAP PO SCH (20:20)
[2017-02-10 22:49] VITALS: BP 138/61; PULSE 113; TEMP 37.2; O2SAT 93
[2017-02-11] VITALS (10 sets, daily range): BP systolic 108–145; BP diastolic 60–88; PULSE 51–115; TEMP 36.5–37.1; O2SAT 90–94
[2017-02-11 06:27] LABS: HEMATOCRIT 33.8 % (42-52); MEAN CELL VOLUME 95.2 fL (80-100); MEAN CORPUSCULAR HEMOGLOBIN 29.6 pg (25-34); MEAN CORPUSCULAR HGB CONC 31.1 g/dl (32-36); MEAN PLATELET VOLUME 9.4 fL (7.4-10.4); PLATELET COUNT 266 K/uL (130-400); RED BLOOD COUNT 3.55 M/uL (4.7-6.1); WHITE BLOOD COUNT 7.61 K/uL (4.8-10.8)
[2017-02-11] MEDS: SODIUM CHLORIDE 0.9% 1000ML 1,000 ML IV SCH (06:53)
[2017-02-11 07:40] LABS: BUN/CREATININE RATIO 13.4 (10-20); CALCIUM 8.5 mg/dl (8.5-10.1); CREATININE 1.4 mg/dl (0.60-1.40); MAGNESIUM 2.1 mg/dl (1.8-2.4); POTASSIUM 4.1 mmol/L (3.5-5.1)
[2017-02-11] MEDS: INSULIN ASPART 100 UNITS/ML 3 ML PEN SC SCH ×4 (07:42→20:05)
[2017-02-11] MEDS: INSULIN GLARGINE SOLOSTAR 100 UNITS/ML 3 ML PEN SC SCH ×2 (07:42→20:06)
[2017-02-11] MEDS: METOPROLOL SUCC 50MG EXT REL TAB PO SCH ×2 (07:43→07:47)
[2017-02-11] MEDS: FLUOXETINE HCL 10 MG CAP PO SCH (07:44)
[2017-02-11] MEDS: CYANOCOBALAMIN 500 MCG TAB (VIT B-12) PO SCH (07:44)
[2017-02-11] MEDS: ROSUVASTATIN CALCIUM 20 MG TAB PO SCH (07:44)
[2017-02-11] MEDS: DILTIAZEM HCL 240 MG CAPCR PO SCH (07:44)
[2017-02-11] MEDS: RANITIDINE HCL 150 MG TAB PO SCH (07:44)
[2017-02-11] MEDS: PANTOprazole SOD 40 MG TAB PO SCH ×2 (07:44→19:57)
[2017-02-11] MEDS: FERROUS SULFATE 325 MG TAB PO SCH ×2 (07:44→17:11)
[2017-02-11] MEDS: TOCOPHERYL, DL-ALPHA 400 INTER.UNIT CAP PO SCH (07:45)
--- NOTE | 2017-02-11 08:00 | Pharmacy Progress Note ---
Glycemic Control: Progress Nt Date of Service Feb 11, 2017. Scope Glycemic Pharmacist consulted by Dr Guzmán on 02/06/17 for glycemic control and to write orders per [facility] inpatient glycemic control protocol. Objective Accuchecks BSG (last 24hrs): Test 02/10/17 11:11 02/10/17 16:10 02/10/17 20:17 02/11/17 06:29 Bedside Glucose 197 mg/dl (70-99) 153 mg/dl (70-99) 139 mg/dl (70-99) 145 mg/dl (70-99) HbA1c: Test 02/07/17 06:10 Hemoglobin A1c 6.3 % (4.5-5.6) H Recent Pertinent Medications Outpatient Anti-diabetic Regimen: * Lantus 80 units SQ qAM and 90 units qPM * Novolog sliding scale with CF of 25 * Glipizide ER 5 mg PO daily The patient is currently receiving: * Basal insulin: Lantus 10 units every 12 hours * Correctional Insulin: Novolog Correction per scale ACHS Goal Range: Low 120 mg/dL - High 160 mg/dL Correction Factor: 20 mg/dL/unit * Prandial insulin: Per carb ratio of 1 unit per 6 grams CHO consumed * Oral Agents: On hold for admission Assessment & Plan ASSESSMENT: * Pt with minimal risk factors for insulin resistance other than diet * Patient is currently receiving ~ 40 units of insulin per day * 20 units of basal insulin * 25 units of prandial/correctional insulin * BSGs ranging 138 -197mg/dl over the past 24hrs * Current insulin regimen is controlling BSGs adequately based on patient age & co-morbidities. * AM Fasting BSG = 145mg/dl --> no changes need made to basal insulin dosing * Total daily dose = ~40 units which is evenly distributed 50%:50% basal: prandial to prevent hypo/hyperglycemia * Post-prandial BSGs in range --> no changes needed to bolus insulin parameters (CF/CR) PLAN FOR INPATIENT GLYCEMIC CONTROL: No changes needed to regimen at this time. Please see recs for discharge below. * Continue to hold outpatient oral diabetes medications (glipizide) * Continue basal insulin with Lantus 10 units SQ BID * Continue NovoLog per scale ACHS or Q6hrs while NPO * Goal Range: Low 120 mg/dL - High 160 mg/dL * Correction Factor: 20 mg/dL/unit * Nutritional / Prandial insulin per carb ratio of 1 unit per 6 grams CHO consumed Thank you. RECOMMENDATIONS FOR DISCHARGE: * 81yo T2DM male with presumed adequate/tight glycemic control per recent A1c but expect that this A1c does not correlate to actual POC BSG. First, A1c was drawn after pRBC therefore the reliability/validity is in question. Additionally , Pt is requiring significantly less insulin in house as compared to outpatient regimen (~45 units/day for admission vs 170+ units as an outpatient). Pt may be experiencing frequent hypoglycemia as an outpatient with such large doses of insulin. * Pt with minimal risk factors for insulin resistance during hospital admission so it may be assumed that current inpatient needs match that of outpatient needs. 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 Pt with hypoglycemia 4/15 AM & 4/16 AM despite first doses of insulin given 4/16 PM when BSGs began trending upwards. * Recommend antidiabetic medication adjustment at DC: * Discontinue Glipizide as the efficacy is questionable in a patient with long standing diabetes and only increases the risk of hypo & confusion in an elderly patient (especially when used with insulin) * Decrease basal insulin dosing with Lantus to 10 units SQ BID --> may work with outpatient provider to titrate dosing back upwards if needed for persistent AM fasting hyperglycemia * Continue NovoLog SSI or may consider giving ~ 10 units of Novolog once daily with the largest meal of the day.
--- NOTE | 2017-02-11 09:18 | Cardiology Follow-Up ---
Subjective Date of Service: Feb 11, 2017. Pt evaluation today including: conversation w/ patient, physical exam, lab review, review of studies, review of inpatient medication list History of Present Illness This is a very pleasant 80-year-old gentleman who unfortunately has a very poor memory and therefore his history is unreliable. He has a history of prostate cancer. He was scheduled for a colonoscopy and was found to be in atrial flutter , I believe this was in 2013. He was asymptomatic and had no history of this. He was sent to the emergency room where he was documented to be in atrial flutter with a rapid heart rate of about 140 bpm. He was started on beta blockade and sent home, however he did convert to sinus rhythm while in the emergency room, this occurred after a quite brief episode of atrial flutter. He wore an event recorder to see whether he had frequent or rapid atrial arrhythmias, which he wore from 10/09/2014 through 11/12/2014. He did have frequent paroxysmal atrial fibrillation or flutter, mostly on a daily basis, averaging 5-7% of the time. His heart rate was rapid at times, around 140 bpm during the episodes although they were asymptomatic. He was therefore started on Xarelto 20 mg daily on 12/08/2014. He was subsequently hospitalized for urosepsis, and his lisinopril, Xarelto and aspirin were all discontinued. I believe his Xarelto was held in plans for colonoscopy however that was not arranged I therefore restarted it and held it prior to his colonoscopy which was attempted on 12/28/2015. He tells me that he was told not to take his diltiazem for his metoprolol that morning, he was in atrial fibrillation with a rapid heart rate at the time the procedure and therefore it was canceled. He was seen on 02/06/2017 for intermittent rectal bleeding which has been progressive. He was found to have severe anemia as well as heme-positive stools. He was therefore admitted. His anticoagulation is now on hold. He was seen by GI regarding his bleeding who felt that this should be an outpatient workup. He is back on his rate controlling medications but his heart rate remains elevated, I increased his diltiazem and his beta cynthia and his heart rate is under better control. Today he feels well and has no complaints. Social History Smoking Status: Never Smoker History of Alcohol Use: No Review of Systems Respiratory: + see HPI Cardiac: No chest pain, No palpitations Medications Cardiovascular: Item Value Date Time Metoprolol 50 mg 02/11/17 0900 Succinate QAM/PO 02/11/17 0747 (Toprol Xl Tab) Diltiazem HCl 240 mg 02/09/17 0900 (Cardizem Cd Cap) QAM/PO 02/11/17 0744 Rosuvastatin 40 mg 02/07/17 0900 Calcium QAM/PO 02/11/17 0744 (Crestor Tab) Metoprolol 100 mg 02/07/17 0815 Succinate DAILY/PO 02/11/17 0743 (Toprol Xl Tab) Objective Vital Signs Past 12 Hours Date Time Temp Pulse Resp B/P Pulse Ox O2 Delivery O2 Flow Rate FiO2 02/11/17 08:00 93 Room Air 02/11/17 07:35 36.8 77 22 145/88 93 Room Air 02/11/17 03:25 94 Room Air 02/11/17 03:25 36.8 115 20 123/67 94 Room Air 02/11/17 00:00 93 Room Air 02/10/17 22:49 37.2 113 22 138/61 93 Room Air Last Recorded Weight-Kilograms: 119.800 Intake & Output 8-Hour Column 02/10/17 02/11/17 02/11/17 16:00 00:00 08:00 Intake Total 1015 ml 508 ml 681 ml Balance 1015 ml 508 ml 681 ml 24-Hour Column 02/11/17 08:00 Intake Total 2204 ml Balance 2204 ml Physical Exam Constitutional: General Apperance: obese Level of Distress: NAD Lungs: Respiratory effort: no dyspnea, good air movement Auscultation: breath sounds normal, no wheezing Cardiovascular: Heart Auscultation: no murmurs, no rubs, no gallops, irregular rate rhythm Peripheral Pulses: Bruits: none appreciated Extremities: no edema Data Laboratory Results: Last 24 Hours Test 02/10/17 11:11 02/10/17 16:10 02/10/17 20:17 02/11/17 06:05 Bedside Glucose 197 mg/dl 153 mg/dl 139 mg/dl White Blood Count 7.61 K/uL Red Blood Count 3.55 M/uL Hemoglobin 10.5 g/dL Hematocrit 33.8 % Mean Corpuscular Volume 95.2 fL Mean Corpuscular Hemoglobin 29.6 pg Mean Corpuscular Hemoglobin Concent 31.1 g/dl RDW Standard Deviation 52.1 fL RDW Coefficient of Variation 15.7 % Platelet Count 266 K/uL Mean Platelet Volume 9.4 fL Sodium Level 142 mmol/L Potassium Level 4.1 mmol/L Chloride Level 108 mmol/L Carbon Dioxide Level 27 mmol/L Anion Gap 7.0 mmol/L Blood Urea Nitrogen 19 mg/dl Creatinine 1.40 mg/dl Est Creatinine Clear Calc Drug Dose 52.0 ml/min Estimated GFR () 53.8 Estimated GFR (Non- 46.5 BUN/Creatinine Ratio 13.4 Random Glucose 149 mg/dl Calcium Level 8.5 mg/dl Magnesium Level 2.1 mg/dl Test 02/11/17 06:29 Bedside Glucose 145 mg/dl Telemetry reviewed: Atrial flutter throughout, heart rate averaging a little bit under 100 bpm. Assessment and Plan #1. Atrial flutter: He has a long history of paroxysmal atrial flutter, he is unaware of the rate in general. His rate controlling meds were held on admission , however when back on his outpatient dose his heart rate remained somewhat elevated. His HR was now reasonably well-controlled with an increase in oral diltiazem and metoprolol, the elevated heart rate here may be possibly in part because of his anemia. We will probably be forced to hold anticoagulation for now. #2. GI bleed: [place] to not require GI evaluation now. We have been trying for a long time to do an outpatient evaluation and we have not been able to. At this point I don't think we can continue anticoagulation. I would recommend keeping him off of anticoagulation until the source of his GI bleed is identified, from the cardiovascular standpoint however he should be on anticoagulation at all possible to minimize stroke risk. Thank You
--- NOTE | 2017-02-11 12:53 | Progress Note ---
Internal Med Progress Note Date of Service: Feb 11, 2017. Provider Documentation: SUBJECTIVE: The patient was seen and examined Feel better this morning Has had Agitated behavior last evening Still has some palpitation OBJECTIVE: Vital Signs-as noted below Exam: General-No distress at rest Eyes-normal ENT-normal Neck-supple Lungs-Clear to auscultate bilaterally Heart-Irregular,2/6 ESM precordial area Abdomen-Benign,no masses Extremities-No edema Neuro-AAOx3 no focal neuro deficit Lab data as noted below. ASSESSMENT & PLAN: Angelica with RVR H/O Afib was on chronic anticoagulation Continue diltiazem an Metoprolol per cardiology No plan to restart anticoagulation upon discharge secondary to recurrent GI bleed Appreciate cardiology input Remains in RVR but without any symptoms. BB dose has been increased Heart rate is down but still >100 D/C IVF and increase ambulation If rate remains controlled will discharge tomorrow Acute on Chronic GI bleeding On Xarelto for Afib Likely from Polyps, diverticulosis, AVMs, hemorrhoids States having colonoscopy X 2 recently but could not be completed secondary to uncontrolled afib Denies use of NSAIDs Hb:7.5 on admission and received 3 units of PRBC S/P Protonix ggt and IVF, Continue PO PPI BID Appreciate GI input Needs colonoscopy as outpatient with (Colonoscopy without sedation) Hb >10 No more episode of bleeding YOUSUF Likely prerenal Improved with IVF Normalized now HTN Presented with hypotension Plan to resume Lisinopril and HCTZ when BP better Continue monitor DM II A1C:6.3 hold oral meds ISS, accu checks pharmacy consult for glycemic management Blood sugar is controlled Hx Prostate CA Denies any hematuria UA:+ Hematuria Needs follow up with Urology as outpatient DVT PX: SCDs due to GI bleed CODE STATUS: Pt level 3 (Full code, NO mech ventilation) DISPOSITION: Continue to monitor in Tele PT/OT evaluation Likely discharge in a day or two Vital Signs: Date Time Temp Pulse Resp B/P Pulse Ox O2 Delivery O2 Flow Rate FiO2 02/11/17 12:00 94 Room Air 02/11/17 11:22 37.1 89 22 108/67 92 Room Air 02/11/17 08:00 93 Room Air 02/11/17 07:35 36.8 77 22 145/88 93 Room Air 02/11/17 03:25 94 Room Air 02/11/17 03:25 36.8 115 20 123/67 94 Room Air 02/11/17 00:00 93 Room Air 02/10/17 22:49 37.2 113 22 138/61 93 Room Air 02/10/17 20:00 Room Air 02/10/17 19:34 37.1 108 22 141/79 92 Room Air 02/10/17 16:00 Room Air 02/10/17 15:21 37.2 90 22 124/70 94 Room Air Lab Results: Results Past 24 Hours Test 02/10/17 16:10 02/10/17 20:17 02/11/17 06:05 02/11/17 06:29 Range/Units Bedside Glucose 153 139 145 70-99 mg/dl White Blood Count 7.61 4.8-10.8 K/uL Red Blood Count 3.55 4.7-6.1 M/uL Hemoglobin 10.5 14.0-18.0 g/dL Hematocrit 33.8 42-52 % Mean Corpuscular Volume 95.2 80-100 fL Mean Corpuscular Hemoglobin 29.6 25-34 pg Mean Corpuscular Hemoglobin Concent 31.1 32-36 g/dl RDW Standard Deviation 52.1 36.4-46.3 fL RDW Coefficient of Variation 15.7 11.5-14.5 % Platelet Count 266 130-400 K/uL Mean Platelet Volume 9.4 7.4-10.4 fL Sodium Level 142 136-145 mmol/L Potassium Level 4.1 3.5-5.1 mmol/L Chloride Level 108 98-107 mmol/L Carbon Dioxide Level 27 21-32 mmol/L Anion Gap 7.0 3-11 mmol/L Blood Urea Nitrogen 19 7-18 mg/dl Creatinine 1.40 0.60-1.40 mg/dl Est Creatinine Clear Calc Drug Dose 52.0 ml/min Estimated GFR () 53.8 Estimated GFR (Non- 46.5 BUN/Creatinine Ratio 13.4 10-20 Random Glucose 149 70-99 mg/dl Calcium Level 8.5 8.5-10.1 mg/dl Magnesium Level 2.1 1.8-2.4 mg/dl Test 02/11/17 11:07 Range/Units Bedside Glucose 194 70-99 mg/dl
[2017-02-11] MEDS: NORTRIPTYLINE HCL 10 MG CAP PO SCH (19:57)
[2017-02-12 03:53] VITALS: BP 125/74; PULSE 56; TEMP 36.6; O2SAT 97
[2017-02-12 07:16] VITALS: BP 116/70; PULSE 107; TEMP 36.5; O2SAT 94
[2017-02-12] MEDS: INSULIN ASPART 100 UNITS/ML 3 ML PEN SC SCH (07:49)
[2017-02-12] MEDS: INSULIN GLARGINE SOLOSTAR 100 UNITS/ML 3 ML PEN SC SCH (07:50)
[2017-02-12] MEDS: FLUOXETINE HCL 10 MG CAP PO SCH (07:51)
[2017-02-12] MEDS: DILTIAZEM HCL 240 MG CAPCR PO SCH (07:51)
[2017-02-12] MEDS: ROSUVASTATIN CALCIUM 20 MG TAB PO SCH (07:52)
[2017-02-12] MEDS: TOCOPHERYL, DL-ALPHA 400 INTER.UNIT CAP PO SCH (07:52)
[2017-02-12] MEDS: PANTOprazole SOD 40 MG TAB PO SCH (07:52)
[2017-02-12] MEDS: RANITIDINE HCL 150 MG TAB PO SCH (07:52)
[2017-02-12] MEDS: CYANOCOBALAMIN 500 MCG TAB (VIT B-12) PO SCH (07:53)
[2017-02-12] MEDS: FERROUS SULFATE 325 MG TAB PO SCH (07:53)
[2017-02-12] MEDS: METOPROLOL SUCC 50MG EXT REL TAB PO SCH ×2 (07:53)
--- NOTE | 2017-02-12 10:09 | Progress Note ---
Internal Med Progress Note Date of Service: Feb 12, 2017. Provider Documentation: SUBJECTIVE: The patient was seen and examined Feel much better this morning No more agitation Denies any complaints,no palpitation OBJECTIVE: Vital Signs-as noted below Exam: General-No distress at rest Eyes-normal ENT-normal Neck-supple Lungs-Clear to auscultate bilaterally Heart-Irregular,2/6 ESM precordial area Abdomen-Benign,no masses Extremities-No edema Neuro-AAOx3 no focal neuro deficit Lab data as noted below. ASSESSMENT & PLAN: Atrial Flutter with RVR H/O Afib was on chronic anticoagulation Continue diltiazem an Metoprolol per cardiology No plan to restart anticoagulation upon discharge secondary to recurrent GI bleed Appreciate cardiology input Remains in RVR but without any symptoms. BB dose has been increased Heart rate is down but still >100 D/C IVF and increase ambulation Rate is controlled -monitor did not show any arrhythmia Discussed with the Sap Analyst No symptoms reported Acute on Chronic GI bleeding On Xarelto for Afib Likely from Polyps, diverticulosis, AVMs, hemorrhoids States having colonoscopy X 2 recently but could not be completed secondary to uncontrolled afib Denies use of NSAIDs Hb:7.5 on admission and received 3 units of PRBC S/P Protonix ggt and IVF, Continue PO PPI BID Appreciate GI input Needs colonoscopy as outpatient with (Colonoscopy without sedation) Hb >10 No more episode of bleeding Will have Colonoscopy as an OP Tomorrow YOUSUF Likely prerenal and complicated by Lisinopril and HCTZ Improved with IVF Normalized now Not to restart HCTZ and Lisinopril now-may need in future HTN Presented with hypotension Plan to resume Lisinopril and HCTZ when BP better-not restarted Bp is controlled with Increasing doses of Cardizem and increasing dose of Toprol Not to restart HCTZ and Lisinopril now DM II A1C:6.3 hold oral meds ISS, accu checks pharmacy consult for glycemic management-appreciate input Blood sugar is controlled Hx Prostate CA Denies any hematuria UA:+ Hematuria Needs follow up with Urology as outpatient DVT PX: SCDs due to GI bleed CODE STATUS: Pt level 3 (Full code, NO mech ventilation) DISPOSITION: Continue to monitor in Tele PT/OT evaluation Discharge today Vital Signs: Date Time Temp Pulse Resp B/P Pulse Ox O2 Delivery O2 Flow Rate FiO2 02/12/17 08:00 Room Air 02/12/17 07:16 36.5 107 20 116/70 94 Room Air 02/12/17 04:00 Room Air 02/12/17 03:53 36.6 56 21 125/74 97 Room Air 02/11/17 23:59 Room Air 02/11/17 23:38 36.5 100 22 119/64 94 Room Air 02/11/17 20:00 Room Air 02/11/17 19:54 36.8 84 22 117/67 94 Room Air 02/11/17 16:00 94 Room Air 02/11/17 15:41 37.0 51 22 108/60 90 Room Air 02/11/17 12:00 94 Room Air 02/11/17 11:22 37.1 89 22 108/67 92 Room Air Lab Results: Results Past 24 Hours Test 02/11/17 11:07 02/11/17 16:09 02/11/17 20:02 02/12/17 06:37 Range/Units Bedside Glucose 194 169 148 138 70-99 mg/dl
[2017-02-12] MEDS ORDERED: CRDCD240 PO (10:19)
[2017-02-12] MEDS ORDERED: INSDGIPEN SC (10:19)
[2017-02-12] MEDS ORDERED: TPRSR50 PO (10:19)
--- NOTE | 2017-02-12 10:22 | Discharge Instructions ---
Discharge Instructions Date of Service Feb 12, 2017. Admission Reason for Admission: Gi Bleeding Discharge Discharge Diagnosis / Problem: A Fib/Flutter with RVR,Acute on Chronic GI bkleed,YOUSUF,DM Discharge Goals Goal(s): Prevent Disease Progression Activity Recommendations Activity Limitations: resume your previous activity . Instructions / Follow-Up Instructions / Follow-Up Please make an appointment with your PCP in 1 week,Have Colonoscopy as scheduled and keep /make appointment with the roll on man Current Hospital Diet Patient's current hospital diet: Diabetes Type 2 Diet Discharge Diet Recommended Diet: Diabetes Type 2 Diet Pending Studies Studies pending at discharge: no Laboratory Results Hemoglobin A1c Test 02/07/17 06:10 Range/Units Estimated Average Glucose 134 mg/dl Hemoglobin A1c 6.3 H 4.5-5.6 % Medical Emergencies . Who to Call and When: Medical Emergencies: If at any time you feel your situation is an emergency, please call 911 immediately. . Non-Emergent Contact Non-Emergency issues call your: Primary Care Provider . Past History Medical & Surgical History: (1) Renal insufficiency (2) GI bleeding (3) Hemorrhoid (4) HTN (hypertension) (5) DM2 (diabetes mellitus, type 2) (6) Afib (7) Prostate CA (8) History of partial colectomy (9) S/P tonsillectomy (10) Hypoglycemia . "Provider Documentation" section prepared by David Barnes. . VTE Core Measure Inpt VTE Proph given/why not?: SCD's, Contraindicated
[2017-02-12 10:32] VITALS: BP 116/68; PULSE 65; TEMP 37; O2SAT 96
--- NOTE | 2017-02-12 17:55 | Discharge Summary ---
Discharge Summary Date of Service Feb 12, 2017. Discharge Summary Admission Date: Feb 06, 2017 at 19:21 Discharge Date: Feb 12, 2017 Discharge Disposition: Personal care Principal Diagnosis: A Fib/Flutter with RVR,Acute on Chronic GI bleed,YOUSUF,DM Secondary Diagnoses/Problems: Please see H&P and Hospital Progress note Consultations: GI and Cardiology Medication Reconciliation New Medications: Diltiazem HCl (Diltiazem Cd) 240 Mg Capcr 240 MG PO QAM for 30 Days, #30 Insulin Glargine (Lantus Solostar) 100 Unit/Ml Inj 10 UNIT SC BID for 30 Days, #1 MAY NEED TO INCREASE THE DOSE SUBSEQUENTLY Metoprolol Succinate (Metoprolol Succinate ER) 50 Mg Tabcr 50 MG PO QAM for 30 Days, #30 Continued Medications: Acetaminophen (Tylenol) 325 Mg Tab 650 MG PO Q4H PRN for Pain or Fever, TAB MAXIMUM OF 3 GMS APAP/24 HOURS Cyanocobalamin (Vitamin B12) 1,000 Mcg Tab 1000 MG PO QAM Diltiazem Hcl Coated Beads (Diltiazem Hcl Er) 180 Mg Cap 180 MG PO DAILY Ferrous Sulfate (Ferrous Sulfate) 325 Mg Tab 325 MG PO BID Fluoxetine HCl (Fluoxetine HCl) 10 Mg Cap 10 MG PO DAILY Glucosamine-Chondroitin (Osteo Bi-Flex Regular Str) 1 Tab Tab 1 TAB PO DAILY Insulin Aspart (Novolog Flexpen) 100 Units/Ml Inj 1 DOSE SC TID COVERAGE DIRECTED BY FOLLOWING SLIDING SCALE: 150-200 2 UNITS 201-240 4 UNITS 241-280 6 UNITS 281-330 8 UNITS 331-360 10 UNITS 361-400 12 UNITS 401-450 14 UNITS >450 15 UNITS AND CALL Ipratropium-Albuterol (Combivent Respimat) 1 Aer Aer 1 PUFF INH Q6H PRN for Shortness of Breath, INH Loperamide Hcl (Anti-Diarrheal) 2 Mg Cap 2 MG PO Q4H PRN for Diarrhea Metoprolol Succinate (Metoprolol Succinate ER) 100 Mg Tabcr 100 MG PO QAM tAKE ADDITIONAL 50MG TO MAKE IT 150MG EVERY MORNING Nortriptyline HCl (Nortriptyline HCl) 10 Mg Cap 20 MG PO HS Ondansetron Hcl (Zofran) 4 Mg Tab 4 MG PO Q8 PRN for Nausea or Vomiting, TAB Ranitidine (Zantac) 150 Mg Tab 150 MG PO QAM Rivaroxaban (Xarelto) 20 Mg Tab 20 MG PO QAM, TAB HOLD UNTIL CLEARED BY GI AND CARDIOLOGY Rosuvastatin Calcium (Rosuvastatin Calcium) 40 Mg Tab 40 MG PO QAM Vitamin E (Vitamin E 400 Iu) 400 Unit Cap 400 INTER.UNIT PO DAILY, CAP Discontinued Medications: Glipizide Xl (Glucotrol Xl) 5 Mg Tab 5 MG PO QAM, TAB Hydrochlorothiazide (Hydrochlorothiazide) 25 Mg Tab 25 MG PO DAILY Insulin Glargine (Lantus Solostar) 100 Unit/Ml Inj 80 UNITS SC QAM Insulin Glargine (Lantus Solostar) 100 Unit/Ml Inj 90 UNITS SC QPM Lisinopril (Zestril) 40 Mg Tab 40 MG PO DAILY Admission Information HPI (per Admitting provider): 81 year-old male with past medical history significant for atrial fibrillation, diabetes, hypertension, hyperlipidemia, GERD, osteoarthritis, urinary incontinence, prostate cancer status post radiation and status post surgery, presents with episode of rectal bleeding started about 3 to 4 days days ago.He saw his PCP today for the rectal bleeding that sent him to the ER. Pt said that every time he had a BM, he saw blood in the tissue paper when he wipes. he said that he had a similar episode before that was resolved. last time that occurred he said that he had a colonoscopy, that was stopped early [facility] he said that he has been taking his Xarelto everyday during the rectal bleeding. last BM was last night. He said that his stools are very hard. Pt said that he has been having lightheadedness and dizziness for the last few days. Denies any abdominal pain, nausea,vomiting, chest pain, shortness of breath, fever and chills. 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 Surgical Problems: (1) History of partial colectomy Status: Chronic (2) S/P tonsillectomy Status: Chronic Family History Cancer Diabetes mellitus Kidney disease Kidney stones Social History Smoking Status: Never Smoker Alcohol Use: none Drug Use: none Marital Status: Housing status: lives alone Occupational Status: retired Immunizations History of Influenza Vaccine: N/A Influenza Vaccine Date: Jun 07, 2008 History of Tetanus Vaccine?: Yes History of Pneumococcal: Yes Pneumococcal Date: Jun 23, 2011 History of Hepatitis B Vaccine: No Allergies Coded Allergies: Cefuroxime (Verified Allergy, Unknown, Unknown, 02/06/17) Metformin (Verified Allergy, Unknown, Unknown, 02/06/17) Home Medications Scheduled Cyanocobalamin (Vitamin B12), 1,000 MG PO QAM Diltiazem Hcl Coated Beads (Diltiazem Hcl Er), 180 MG PO DAILY Ferrous Sulfate (Ferrous Sulfate), 325 MG PO BID Fluoxetine HCl (Fluoxetine HCl), 10 MG PO DAILY Glipizide Xl (Glucotrol Xl), 5 MG PO QAM Glucosamine-Chondroitin (Osteo Bi-Flex Regular Str), 1 TAB PO DAILY Hydrochlorothiazide (Hydrochlorothiazide), 25 MG PO DAILY Insulin Aspart (Novolog Flexpen), 1 DOSE SC TID Insulin Glargine (Lantus Solostar), 80 UNITS SC QAM Insulin Glargine (Lantus Solostar), 90 UNITS SC QPM Lisinopril (Zestril), 40 MG PO DAILY Metoprolol Succinate (Metoprolol Succinate ER), 100 MG PO QAM Nortriptyline HCl (Nortriptyline HCl), 20 MG PO HS Ranitidine (Zantac), 150 MG PO QAM Rivaroxaban (Xarelto), 20 MG PO QAM Rosuvastatin Calcium (Rosuvastatin Calcium), 40 MG PO QAM Vitamin E (Vitamin E 400 Iu), 400 INTER.UNIT PO DAILY Scheduled PRN Acetaminophen (Tylenol), 650 MG PO Q4H PRN for Pain or Fever Ipratropium-Albuterol (Combivent Respimat), 1 PUFF INH Q6H PRN for Shortness of Breath Loperamide Hcl (Anti-Diarrheal), 2 MG PO Q4H PRN for Diarrhea Ondansetron Hcl (Zofran), 4 MG PO Q8 PRN for Nausea or Vomiting Review of Systems Constitutional: No chills, No fever, No weight loss ENT: No nasal symptoms, No sore throat, No unusual epistaxis Respiratory: No cough, No shortness of breath, No sputum Cardiovascular: No chest pain, No palpitations Abdomen: + GI bleeding, No diarrhea, No nausea, No pain, No vomiting Musculoskeletal: No calf pain Genitourinary - Male: No dysuria, No hematuria Neurologic: + problem reported (dizziness and lightheadness), No paralysis Psychiatric: No substance abuse Endocrine: No excessive thirst Hematologic / Lymphatic: No night sweats Integumentary: No itch, No rash Physical Ex - H&P Physical Exam Vital Signs Date Time Temp Pulse Resp B/P Pulse Ox O2 Delivery O2 Flow Rate FiO2 02/06/17 19:40 90 20 90/46 02/06/17 18:32 70 16 100/47 95 Room Air 02/06/17 18:18 80 12 96/44 92 Room Air 02/06/17 18:12 91 Room Air 02/06/17 18:11 96 02/06/17 17:44 36.7 115 20 97/63 96 Room Air General Appearance: WD/WN, no apparent distress Head: normocephalic, atraumatic Eyes: normal inspection, PERRL, EOMI ENT: normal ENT inspection, hearing grossly normal Neck: supple, no JVD Respiratory/Chest: lungs clear, no respiratory distress, no accessory muscle use Cardiovascular: no JVD, no murmur, + irregularly irregular Abdomen/GI: normal bowel sounds, non tender, + fecal occult blood Back: normal inspection, no CVA tenderness Extremities/Musculoskelatal: no calf tenderness, + pertinent finding (+ 1 edema ) Neurologic/Psych: no motor/sensory deficits, alert, normal mood/affect, oriented x 3 Skin: normal color, warm/dry, no rash Diagnostics - H&P Diagnostics Laboratory Results Results Past 24 Hours Test 02/06/17 18:06 Range/Units White Blood Count 9.04 4.8-10.8 K/uL Red Blood Count 2.61 4.7-6.1 M/uL Hemoglobin 7.5 14.0-18.0 g/dL Hematocrit 24.1 42-52 % Mean Corpuscular Volume 92.3 80-100 fL Mean Corpuscular Hemoglobin 28.7 25-34 pg Mean Corpuscular Hemoglobin Concent 31.1 32-36 g/dl Platelet Count 395 130-400 K/uL Mean Platelet Volume 9.2 7.4-10.4 fL Neutrophils (%) (Auto) 64.4 % Lymphocytes (%) (Auto) 22.6 % Monocytes (%) (Auto) 10.3 % Eosinophils (%) (Auto) 2.3 % Basophils (%) (Auto) 0.3 % Neutrophils # (Auto) 5.82 1.4-6.5 K/uL Lymphocytes # (Auto) 2.04 1.2-3.4 K/uL Monocytes # (Auto) 0.93 0.11-0.59 K/uL Eosinophils # (Auto) 0.21 0-0.5 K/uL Basophils # (Auto) 0.03 0-0.2 K/uL RDW Standard Deviation 48.3 36.4-46.3 fL RDW Coefficient of Variation 14.6 11.5-14.5 % Immature Granulocyte % (Auto) 0.1 % Immature Granulocyte # (Auto) 0.01 0.00-0.02 K/uL Polychromasia 1+ Schistocytes 1+ Prothrombin Time 14.0 9.0-12.0 SECONDS Prothromb Time International Ratio 1.3 0.9-1.1 Activated Partial Thromboplast Time 30.3 21.0-31.0 SECONDS Partial Thromboplastin Ratio 1.2 Sodium Level 145 136-145 mmol/L Potassium Level 4.4 3.5-5.1 mmol/L Chloride Level 111 98-107 mmol/L Carbon Dioxide Level 28 21-32 mmol/L Anion Gap 6.0 3-11 mmol/L Blood Urea Nitrogen 34 7-18 mg/dl Creatinine 1.60 0.60-1.40 mg/dl Estimated GFR () 45.8 Estimated GFR (Non- 39.5 BUN/Creatinine Ratio 21.5 10-20 Random Glucose 146 70-99 mg/dl Calcium Level 8.3 8.5-10.1 mg/dl Total Bilirubin 0.2 0.2-1 mg/dl Direct Bilirubin < 0.1 0-0.2 mg/dl Aspartate Amino Transf (AST/SGOT) 13 15-37 U/L Alanine Aminotransferase (ALT/SGPT) 18 12-78 U/L Alkaline Phosphatase 69 45-117 U/L Total Protein 7.1 6.4-8.2 gm/dl Albumin 3.2 3.4-5.0 gm/dl Lipase 98 73-393 U/L Impression - H&P Impression Assessment and Plan GI bleeding On Xarelto for AfiB Positive FOBT in the ER Hbg on admission 7.5 continue protonix drip type and cross and transfused 2 units prbc Blood consent signed Will hold xarelto Will consult GI Will give clear liquid diet and NPO after midnight Monitor h/h YOUSUF creatine on admission 1.6 creatine was 1.1 (back on 11/11) Will give gentle IVF hold Lisinopril and HCTZ monitor BMP Afib rate is controlled EKG showed Atrial flutter Hold xarelto due to GI bleed Will resume diltiazem an Metoprol once BP improved Risks discussed with pt such as blood clot and stroke. HTN BP is in the low side Hold BP med Continue monitor BP DM Type 2 Check Hba1c hold oral meds insulin coverage pharmacy consult for glycemic management Hx Prostate CA Denies any hematuria Stable DVT px on SCDs due to GI bleed CODE Status as per Pt level 3 (Full code, NO mech ventilation) Level of Care Telemetry Resuscitation Status FULL NO MECH VENTILATION VTE Prophylaxis VTE Risk Assessment Done? Y/N: Yes Risk Level: Moderate Given or contraindicated: SCD's, Contraindicated Physical Exam (per Admitting): General Appearance: WD/WN, no apparent distress Head: normocephalic, atraumatic Eyes: normal inspection, PERRL, EOMI ENT: normal ENT inspection, hearing grossly normal Neck: supple, no JVD Respiratory/Chest: lungs clear, no respiratory distress, no accessory muscle use Cardiovascular: no JVD, no murmur, + irregularly irregular Abdomen/GI: normal bowel sounds, non tender, + fecal occult blood Back: normal inspection, no CVA tenderness Extremities/Musculoskelatal: no calf tenderness, + pertinent finding (+ 1 edema) Neurologic/Psych: no motor/sensory deficits, alert, normal mood/affect, oriented x 3 Skin: normal color, warm/dry, no rash Hospital Course Atrial Flutter with RVR H/O Afib was on chronic anticoagulation Continue diltiazem an Metoprolol per cardiology No plan to restart anticoagulation upon discharge secondary to recurrent GI bleed Appreciate cardiology input Remains in RVR but without any symptoms. BB dose has been increased Heart rate is down but still >100 D/C IVF and increase ambulation Rate is controlled -monitor did not show any arrhythmia Discussed with the Insurance Defense Paralegal No symptoms reported Acute on Chronic GI bleeding On Xarelto for Afib Likely from Polyps, diverticulosis, AVMs, hemorrhoids States having colonoscopy X 2 recently but could not be completed secondary to uncontrolled afib Denies use of NSAIDs Hb:7.5 on admission and received 3 units of PRBC S/P Protonix ggt and IVF, Continue PO PPI BID Appreciate GI input Needs colonoscopy as outpatient with (Colonoscopy without sedation) Hb >10 No more episode of bleeding Will have Colonoscopy as an OP Tomorrow OYUSUF Likely prerenal and complicated by Lisinopril and HCTZ Improved with IVF Normalized now Not to restart HCTZ and Lisinopril now-may need in future HTN Presented with hypotension Plan to resume Lisinopril and HCTZ when BP better-not restarted Bp is controlled with Increasing doses of Cardizem and increasing dose of Toprol Not to restart HCTZ and Lisinopril now DM II A1C:6.3 hold oral meds ISS, accu checks pharmacy consult for glycemic management-appreciate input Blood sugar is controlled Hx Prostate CA Denies any hematuria UA:+ Hematuria Needs follow up with Urology as outpatient DVT PX: SCDs due to GI bleed CODE STATUS: Pt level 3 (Full code, NO mech ventilation) DISPOSITION: Continue to monitor in Tele PT/OT evaluation Discharge today Total time spent on discharge = 35 minutes This includes examination of the patient, discharge planning, medication reconciliation, and communication with other providers. Discharge Instructions Date of Service Feb 12, 2017. Admission Reason for Admission: Gi Bleeding Discharge Discharge Diagnosis / Problem: A Fib/Flutter with RVR,Acute on Chronic GI bkleed,YOUSUF,DM Discharge Goals Goal(s): Prevent Disease Progression Activity Recommendations Activity Limitations: resume your previous activity . Instructions / Follow-Up Instructions / Follow-Up Please make an appointment with your PCP in 1 week,Have Colonoscopy as scheduled and keep /make appointment with the diamond blender Current Hospital Diet Patient's current hospital diet: Diabetes Type 2 Diet Discharge Diet Recommended Diet: Diabetes Type 2 Diet Pending Studies Studies pending at discharge: no Laboratory Results Hemoglobin A1c Test 02/07/17 06:10 Range/Units Estimated Average Glucose 134 mg/dl Hemoglobin A1c 6.3 H 4.5-5.6 % Medical Emergencies . Who to Call and When: Medical Emergencies: If at any time you feel your situation is an emergency, please call 911 immediately. . Non-Emergent Contact Non-Emergency issues call your: Primary Care Provider . Past History Medical & Surgical History: (1) Renal insufficiency (2) GI bleeding (3) Hemorrhoid (4) HTN (hypertension) (5) DM2 (diabetes mellitus, type 2) (6) Afib (7) Prostate CA (8) History of partial colectomy (9) S/P tonsillectomy (10) Hypoglycemia . "Provider Documentation" section prepared by David Barnes. . VTE Core Measure Inpt VTE Proph given/why not?: SCD's, Contraindicated <Electronically signed by David Barnes M.D.> Signed: 02/12/17 1022 Signed: The status of this report is Signed * If report status is Draft, the document has not been finalized by the responsible provider. Addendum: 02/12/17 1027 Addendum: David Barnes M.D. on 02/12/17 @ 10:27 Discharge Inst - Addendum Addendum Notes: Must take his Cardiac Medication regularly and even before Colonoscopy Addendum Provider: Addendum Notes were documented by provider David Barnes. Signed: 02/12/17 1022 Additional Copies To [facility]
== END 2017-02-12 11:34 | disposition home or self-care (01) | DRG 378 ==
LOC: ENRESERVDT → ENRESERVTM → C.EDB 17:43 → C.2T 19:21
PROVIDERS: ADMIT Internal Medicine; ATTEND Internal Medicine
DX: K92.2 Gastrointestinal hemorrhage, unspecified (principal); I48.92 Unspecified atrial flutter; N17.9 Acute kidney failure, unspecified; E78.5 Hyperlipidemia, unspecified; K21.9 Gastro-esophageal reflux disease without esophagitis; M19.90 Unspecified osteoarthritis, unspecified site; Z85.46 Personal history of malignant neoplasm of prostate; R32 Unspecified urinary incontinence; E78.00 Pure hypercholesterolemia, unspecified; I10 Essential (primary) hypertension; Z87.442 Personal history of urinary calculi; Z90.49 Acquired absence of other specified parts of digestive tract; Z80.9 Family history of malignant neoplasm, unspecified; Z83.3 Family history of diabetes mellitus; Z84.1 Family history of disorders of kidney and ureter; Z88.8 Allergy status to other drugs, medicaments and biological substances; Z79.899 Other long term (current) drug therapy; Z79.4 Long term (current) use of insulin; Z79.01 Long term (current) use of anticoagulants; I48.0 Paroxysmal atrial fibrillation; I95.9 Hypotension, unspecified; E11.9 Type 2 diabetes mellitus without complications; D64.9 Anemia, unspecified; R19.5 Other fecal abnormalities

== ENCOUNTER → 2017-02-13 | Day surgery (SDC) | payer OTHER ==
[~2017-02-13] VITALS: Ht 175.3 cm; Wt 119.5 kg
[~2017-02-13] MED LIST changes: +ACET-1311 PO; -ASPCH81X PO; +CRDCD240 PO; +FERR325T5 PO; +GLUCTAB18 PO; -HYDR25TA5 PO; -LISI40TA PO; +LOPE1CAP6 PO; +NVLGI/PEN SC; +ONDA4TAB46 PO; +SODIUM CHLORIDE 0.9% 500ML 500 ML IV ONE; +TPRSR50 PO; +VITA400C3 PO
[2017-02-13 10:37] VITALS: Ht 175.3 cm; Wt 119.5 kg
--- NOTE | 2017-02-13 11:12 | Endo History and Physical ---
History & Physical Date of Service: Feb 13, 2017. Chief Complaint: rectal bleeding,anemia Referring Physician: MADISON Barrios III History of Present Illness 81 yo CM who presents for colonoscopy secondary to rectal bleeding and anemia. Past Medical History Atrial Fibrillation, Diabetes, Male Genitourinary Prob., Cancer, High Cholesterol, Hypertension, COPD Past Surgical History Hx Cardiac Surgery: No Hx Internal Defibrillator: No Hx Pacemaker: No Hx Abdominal Surgery: Yes (Two tumors removed) Hx Post-Op Nausea and Vomiting: No Hx Cancer Surgery: Yes (Two tumors removed - prostate cancer) Hx Thoracic Surgery: No Hx Orthopedic: Yes ("right leg") Hx Urinary Tract Surgery: Yes Social History Smoking Status: Never Smoker Hx Substance Use: No Hx Alcohol Use: No Allergies Coded Allergies: Cefuroxime (Verified Allergy, Unknown, Unknown, 02/06/17) Metformin (Verified Allergy, Unknown, Unknown, 02/06/17) Current Medications Reported Home Medications Medications Dose Route/Sig Max Daily Dose Days Date Category Dose Instructions Metoprolol Succinate ER (Metoprolol Succinate) 50 Mg Tabcr 50 Mg PO QAM 30 02/12/17 Rx Novolog Flexpen (Insulin Aspart) 100 Units/Ml Inj 1 Dose SC TID 02/06/17 Reported COVERAGE DIRECTED BY FOLLOWING SLIDING SCALE: 150-200 2 UNITS 201-240 4 UNITS 241-280 6 UNITS 281-330 8 UNITS 331-360 10 UNITS 361-400 12 UNITS 401-450 14 UNITS >450 15 UNITS AND CALL MD Guerra (Ondansetron HCl) 4 Mg Tab 4 Mg PO Q8 PRN 02/06/17 Reported Anti-Diarrheal (Loperamide Hcl) 2 Mg Cap 2 Mg PO Q4H PRN 02/06/17 Reported Tylenol (Acetaminophen) 325 Mg Tab 650 Mg PO Q4H PRN 02/06/17 Reported MAXIMUM OF 3 GMS APAP/24 HOURS Vitamin E 400 Iu (Vitamin E) 400 Unit Cap 400 Inter.unit PO DAILY 02/06/17 Reported Osteo Bi-Flex Regular Str (Glucosamine-Chondroitin) 1 Tab Tab 1 Tab PO DAILY 02/06/17 Reported Ferrous Sulfate 325 Mg Tab 325 Mg PO BID 02/06/17 Reported Combivent Respimat (Ipratropium-Albuterol) 1 Aer Aer 1 Puff INH Q6H PRN 07/18/16 Reported Fluoxetine HCl 10 Mg Cap 10 Mg PO DAILY 07/02/16 Reported Rosuvastatin Calcium 40 Mg Tab 40 Mg PO QAM 07/02/16 Reported Diltiazem Hcl Er (Diltiazem Hcl Coated Beads) 180 Mg Cap 180 Mg PO DAILY 07/02/16 Reported Metoprolol Succinate ER (Metoprolol Succinate) 100 Mg Tabcr 100 Mg PO QAM 12/12/15 Reported tAKE ADDITIONAL 50MG TO MAKE IT 150MG EVERY MORNING Xarelto (Rivaroxaban) 20 Mg Tab 20 Mg PO QAM 12/12/15 Reported HOLD UNTIL CLEARED BY GI AND CARDIOLOGY Vitamin B12 (Cyanocobalamin) 1,000 Mcg Tab 1,000 Mg PO QAM 08/22/14 Reported Nortriptyline HCl 10 Mg Cap 20 Mg PO HS 08/10/14 Reported Zantac (Ranitidine HCl) 150 Mg Tab 150 Mg PO QAM 02/13/09 Reported Vital Signs Weight (Kilograms): 119.55 Height (Feet): 5 Height (Inches): 9 Date Time Temp Pulse Resp B/P Pulse Ox O2 Delivery O2 Flow Rate FiO2 02/13/17 10:54 36.3 114 22 154/98 96 Room Air Physical Exam General Appearance: WD/WN, no apparent distress Respiratory/Chest: Auscultation: breath sounds normal Cardiovascular: Heart Auscultation: RRR Abdomen: Bowel Sounds: normal Inspection & Palpation: soft, non-distended, no tenderness, guarding & rebound Assessment and Plan Assessment: 81 yo CM who presents for colonoscopy secondary to rectal bleeding and anemia. Plan: Proceed with colonoscopy.
--- NOTE | 2017-02-13 11:27 | Discharge Instructions ---
Endoscopy Patient Instructions Date / Procedure(s) Performed Feb 13, 2017. Colonoscopy Allergy Information Coded Allergies: Cefuroxime (Verified Allergy, Unknown, Unknown, 02/06/17) Metformin (Verified Allergy, Unknown, Unknown, 02/06/17) Discharge Date / Findings Feb 13, 2017. 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 Medication Instructions Stopped Medication(s): took Xarelto this am at 08:00 OK to resume all medications today as prescribed Reported Home Medications Medications Dose Route/Sig Max Daily Dose Days Date Category Dose Instructions Metoprolol Succinate ER (Metoprolol Succinate) 50 Mg Tabcr 50 Mg PO QAM 30 02/12/17 Rx Novolog Flexpen (Insulin Aspart) 100 Units/Ml Inj 1 Dose SC TID 02/06/17 Reported COVERAGE DIRECTED BY FOLLOWING SLIDING SCALE: 150-200 2 UNITS 201-240 4 UNITS 241-280 6 UNITS 281-330 8 UNITS 331-360 10 UNITS 361-400 12 UNITS 401-450 14 UNITS >450 15 UNITS AND CALL MD Guerra (Ondansetron HCl) 4 Mg Tab 4 Mg PO Q8 PRN 02/06/17 Reported Anti-Diarrheal (Loperamide Hcl) 2 Mg Cap 2 Mg PO Q4H PRN 02/06/17 Reported Tylenol (Acetaminophen) 325 Mg Tab 650 Mg PO Q4H PRN 02/06/17 Reported MAXIMUM OF 3 GMS APAP/24 HOURS Vitamin E 400 Iu (Vitamin E) 400 Unit Cap 400 Inter.unit PO DAILY 02/06/17 Reported Osteo Bi-Flex Regular Str (Glucosamine-Chondroitin) 1 Tab Tab 1 Tab PO DAILY 02/06/17 Reported Ferrous Sulfate 325 Mg Tab 325 Mg PO BID 02/06/17 Reported Combivent Respimat (Ipratropium-Albuterol) 1 Aer Aer 1 Puff INH Q6H PRN 07/18/16 Reported Fluoxetine HCl 10 Mg Cap 10 Mg PO DAILY 07/02/16 Reported Rosuvastatin Calcium 40 Mg Tab 40 Mg PO QAM 07/02/16 Reported Diltiazem Hcl Er (Diltiazem Hcl Coated Beads) 180 Mg Cap 180 Mg PO DAILY 07/02/16 Reported Metoprolol Succinate ER (Metoprolol Succinate) 100 Mg Tabcr 100 Mg PO QAM 12/12/15 Reported tAKE ADDITIONAL 50MG TO MAKE IT 150MG EVERY MORNING Xarelto (Rivaroxaban) 20 Mg Tab 20 Mg PO QAM 12/12/15 Reported HOLD UNTIL CLEARED BY GI AND CARDIOLOGY Vitamin B12 (Cyanocobalamin) 1,000 Mcg Tab 1,000 Mg PO QAM 08/22/14 Reported Nortriptyline HCl 10 Mg Cap 20 Mg PO HS 08/10/14 Reported Zantac (Ranitidine HCl) 150 Mg Tab 150 Mg PO QAM 02/13/09 Reported Provider Instructions Activity Restrictions - No exercising or heavy lifting for 24 hours. - Do not drink alcohol the day of the procedure. - Do not drive a car or operate machinery until the day after the procedure. - Do not make any important decisions or sign important papers in 24 hours after the procedure. Following Day: - Return to full activity which may include returning to work/school. Diet Start your diet with liquids and light foods (jello, soup, juice, toast). Then eat your usual diet if not nauseated. Treatment For Common After Affects For mild abdominal pain, bloating, or excessive gas: - Rest - Eat lightly - Lie on right side Follow-Up Information Follow-up with MADISON Barrios III as scheduled Anesthesia Information What You Should Know You have had a procedure that required some medicine to reduce anxiety and discomfort. This treatment is called moderate sedation. After receiving the treatment, you may be sleepy, but you will be able to breathe on your own. The effects of the treatment may last for several hours. Follow these instructions along with Activity/Diet recommendations noted above: * Do NOT do anything where dizziness or clumsiness would be dangerous. * Rest quietly at home today, then you can be up and about tomorrow. * Have a responsible person stay with you the rest of today. * You may have had an I.V. today. If so, you may take the dressing off later today. Recommendations Call your doctor if: * Trouble breathing * Continuous vomiting for more than 24 hours * Temperature above 101 degrees * Severe abdominal pain or bloating * Pain not relieved by pain medicine ordered * There is increased drainage or redness from any incision * A large amount of rectal bleeding greater than 2-3 tablespoons. (If you had a polyp/s removed or have hemorrhoids, a small amount of blood - from the rectum is to be expected.) * You have any unanswered questions or concerns. IN THE EVENT OF A SERIOUS EMERGENCY, GO TO THE NEAREST EMERGENCY ROOM Your discharge instructions were prepared by provider Naman Proctor. Patient Instructions Signature Page Nader Byers Patient (or Guardian) Signature/Date: I have read and understand the instructions given to me by my caregivers. Caregiver/RN/Doctor Signature/Date: The above-named patient and/or guardian has received patient instructions on this date. + Original Patient Signature Page (only) stays with chart. Please make copy for patient.
[2017-02-13 11:31] VITALS: BP 120/50; PULSE 108; O2SAT 95
--- NOTE | 2017-02-13 11:35 | GI REPORT ---
Procedure Date: 02/13/2017 10:57 AM Procedure: Colonoscopy Indications: Rectal bleeding Medicines: None Complications: No immediate complications. Estimated Blood Loss: Estimated blood loss: none. Procedure: Pre-Anesthesia Assessment: - Prior to the procedure, a History and Physical was performed, and patient medications and allergies were reviewed. The patient's tolerance of previous anesthesia was also reviewed. The risks and benefits of the procedure and the sedation options and risks were discussed with the patient. All questions were answered, and informed consent was obtained. Prior Anticoagulants: The patient has taken Xarelto (rivaroxaban), last dose was day of procedure. ASA Grade Assessment: IV - A patient with severe systemic disease that is a constant threat to life. After reviewing the risks and benefits, the patient was deemed in satisfactory condition to undergo the procedure. After I obtained informed consent, the scope was passed under direct vision. Throughout the procedure, the patient's blood pressure, pulse, and oxygen saturations were monitored continuously. The On-site loaner was introduced through the anus and advanced to the cecum, identified by appendiceal orifice and ileocecal valve. The colonoscopy was performed without difficulty. The patient tolerated the procedure well. The quality of the bowel preparation was good. The ileocecal valve, appendiceal orifice, and rectum were photographed. Findings: Multiple small localized angiodysplastic lesions without bleeding were found in the rectum. Non-bleeding internal hemorrhoids were found during retroflexion. The hemorrhoids were small. Impression: - Multiple non-bleeding colonic angiodysplastic lesions. - Non-bleeding internal hemorrhoids. - No specimens collected. Recommendation: - Resume previous diet. - Continue present medications. - No repeat colonoscopy due to age. - Return to primary care physician as previously scheduled. Naman Proctor DO 02/13/2017 11:34:16 AM This report has been signed electronically. Note Initiated On: 02/13/2017 10:57 AM I attest to the content of the Intraoperative Record and orders documented therein, exceptions below
== END | disposition home or self-care (01) ==
LOC: C.GI 10:18
PROVIDERS: ATTEND Internal Medicine
DX: K55.20 Angiodysplasia of colon without hemorrhage (principal); K64.8 Other hemorrhoids; I49.8 Other specified cardiac arrhythmias; I48.91 Unspecified atrial fibrillation; I10 Essential (primary) hypertension; E78.00 Pure hypercholesterolemia, unspecified; E11.9 Type 2 diabetes mellitus without complications; J44.9 Chronic obstructive pulmonary disease, unspecified; Z85.46 Personal history of malignant neoplasm of prostate; Z79.01 Long term (current) use of anticoagulants; Z79.4 Long term (current) use of insulin; Z79.899 Other long term (current) drug therapy; K62.89 Other specified diseases of anus and rectum

== ENCOUNTER → 2017-03-03 | Outpatient (CLI) | payer OTHER ==
[~2017-03-03] MED LIST changes: -CRDCD240 PO; -SODIUM CHLORIDE 0.9% 500ML 500 ML IV ONE
[2017-03-03 13:02] LABS: HEMATOCRIT 43.3 % (42-52); MEAN CELL VOLUME 93.3 fL (80-100); MEAN CORPUSCULAR HEMOGLOBIN 29.1 pg (25-34); MEAN CORPUSCULAR HGB CONC 31.2 g/dl (32-36); MEAN PLATELET VOLUME 10.6 fL (7.4-10.4); PLATELET COUNT 286 K/uL (130-400); RED BLOOD COUNT 4.64 M/uL (4.7-6.1); WHITE BLOOD COUNT 7.13 K/uL (4.8-10.8)
[2017-03-03 13:11] LABS: BLOOD UREA NITROGEN 23 mg/dl (7-18); BUN/CREATININE RATIO 19.2 (10-20); CALCIUM 8.7 mg/dl (8.5-10.1); CARBON DIOXIDE 29 mmol/L (21-32); CHLORIDE 105 mmol/L (98-107); GLUCOSE 119 mg/dl (70-99); POTASSIUM 4.1 mmol/L (3.5-5.1); SODIUM 140 mmol/L (136-145)
== END | disposition home or self-care (01) ==
LOC: C.LABWYN 14:05
PROVIDERS: ATTEND Nurse Practitioner Adult Health
DX: K92.2 Gastrointestinal hemorrhage, unspecified (principal); E11.9 Type 2 diabetes mellitus without complications

== ENCOUNTER → 2017-07-16 | Outpatient (CLI) | payer OTHER ==
[2017-07-16 12:40] LABS: HEMATOCRIT 45.4 % (42-52); MEAN CELL VOLUME 97.8 fL (80-100); MEAN CORPUSCULAR HEMOGLOBIN 31.3 pg (25-34); MEAN CORPUSCULAR HGB CONC 31.9 g/dl (32-36); MEAN PLATELET VOLUME 10.9 fL (7.4-10.4); PLATELET COUNT 294 K/uL (130-400); RED BLOOD COUNT 4.64 M/uL (4.7-6.1); WHITE BLOOD COUNT 7.28 K/uL (4.8-10.8)
[2017-07-16 12:51] LABS: ESTIMATED AVERAGE GLUCOSE 192 mg/dl; HA1C FLAG Normal (Normal)
[2017-07-16 13:09] LABS: BLOOD UREA NITROGEN 22 mg/dl (7-18); CALCIUM 8.9 mg/dl (8.5-10.1); CARBON DIOXIDE 29 mmol/L (21-32); CHLORIDE 107 mmol/L (98-107); GLUCOSE 110 mg/dl (70-99); POTASSIUM 4.2 mmol/L (3.5-5.1); SODIUM 142 mmol/L (136-145)
== END | disposition home or self-care (01) ==
LOC: C.LABWYN 13:07
PROVIDERS: ATTEND Nurse Practitioner Adult Health
DX: D64.9 Anemia, unspecified (principal); I10 Essential (primary) hypertension; E11.9 Type 2 diabetes mellitus without complications

== ENCOUNTER → 2017-09-07 | Outpatient (CLI) | payer OTHER ==
--- NOTE | 2017-09-08 05:27 | SPLIT NIGHT TECHNICIAN REPORT ---
[facility] Split Night Polysomnogram - Mechanical Ordnance Assembler Report Study date: 09/07/2017 Referring Physician: Hamilton Stein D.O. Name: ROMI DILLON Mechanical Ordnance Assembler: ETHAN Patel. Date of : 1935 Height: 82 years, Height 5' 9" Sex: Male Weight: 220 lbs Age: 82 Neck Circum:18.75in. BMI: Medications: 32.48 Diltazem ER 180mg, Novolog Flexpen 100unit/ml, Vit b-12 1000mcg, Osteobiflex 250mg, Vit E 400unit, Combivent Respimat 20 mcg-100mcg/act, Rectiv 0.4% ointment, Nortriptyline 10mg, Doc-Q-Lace 100mg, [id number], Glipizide 10mg, HCTZ 25mg, Lantus 100unit, Metoprolol SUC ER 50mg, Nortriptyline HCL 10mg, Ranitidie 150mg, Rosuvastatin 40mg, Xarelto 20mg Patient History Study started on room air with no ETCO2 monitoring in room #6. 82 yr old male here tonight for a diagnostic psg. He is a resident at [facility] in [place] and was brought here by his daughter. His daughter helped him administer his Novolog ( 6 units) tonight at 8:15pm. He is here because he snores and has EDS. His oxygen runs low at night and he sometimes wakes up gasping. He has a history of hypertensive heart disease w/out heart failure, paroxysmal atrial fibrillation, edema, diabetes, renal insufficiency, GI bleed, prostate cancer and partial colectomy His ESS=10/21. Neck circ=18.75inches. Parameters Monitored NPSG: E1-M2, E2-M1, Fp1-M2, Fp2-M1, F3-M2, F4-M2, F4-M1, C3-M2, C4-M2, C4-M1, O1-M2, O2-M2, O2-M1, T3-M2, T4-M1, P3-M2, P4-M1, CHIN1, CHIN2, HR, EKG, Legs, PFLOW, SNOR, FLOW, CFLOW, Tidal Volume, THOR, ABDO, SpO2, PLTH, CPRESS, ETCO2 Wave, ETCO2, pH SLEEP SUMMARY DATA DIAGNOSTIC TREATMENT Lights Out: 8:48:12 PM 11:29:42 PM Lights On: 11:12:42 PM 5:09:12 AM Total Recording Time (TRT): 144.5 min. 339.5 min. Total Sleep Time (TST): 121.0 min. 266.0 min. NREM Time: 121.0 min. 207.5 min. REM Time: 0.0 min. 58.5 min. Sleep Period Time (SPT): 142.5 min. 338.0 min. Sleep Efficiency (SE): 84 % 78 % Sleep Latency: 2.0 min. 1.5 min. Arousal Index: 32.7 13.8 PAP Treatment Levels: 4, 6, 8, 10, 12, 14, 15 * Optimal Pressure(s) SLEEP STAGING DATA DIAGNOSTIC TREATMENT Duration (min) TST % Duration (min) TST % Stage Wake: 23.5 min. -- 73.5 min. -- WASO: 21.5 min. -- 72.0 min. -- NREM: 121.0 min. 100 % 207.5 min. 78 % Stage N1: 23.0 min. 19 % 23.5 min. 9 % Stage N2: 97.5 min. 81 % 129.0 min. 48 % Stage N3: 0.5 min. 0 % 55.0 min. 21 % REM: 0.0 min. 0 % 58.5 min. 22 % POSITIONAL DATA Event Count Index Event Count Index Supine: 96 48 59 17.1 Supine NREM: 96 47.6 58 23.5 Supine REM: N/A N/A 1 1 Non-Supine: N/A N/A 2 2.0 Non-Supine NREM: N/A N/A 2 2.0 Non-Supine REM: N/A N/A N/A N/A AROUSAL SUMMARY DATA: Event Count Index Event Count Index Apnea Arousals: 2 2.0 3 1.4 Hypopnea Arousals: 44 21.8 27 6.1 Snore Arousals: 2 1.0 3 0.7 PLM Arousals: 8 4.0 9 2.0 Non-Specific Arousals: 18 8.9 19 4.3 Total Arousals: 66 32.7 61 13.8 MYOCLONUS (PLM) Event Count Index Event Count Index PLM: 119 59.0 164 37.0 PLM AROUSAL: 8 4.0 9 2.0 PLM W/O AROUSAL 119 59.0 155 35.0 PLM W/RESP EVENT 16 0.0 2 0.0 MYOCLONUS (PLM) Event Count Index Event Count Index LM: 0 39.2 98 22.1 LM AROUSAL: 0 0.0 8 1.8 LM W/O AROUSAL LM W/RESP EVENT LM NON SPECIFIC 152 75.4 220 49.6 HEART RATE DATA DIAGNOSTIC TREATMENT Sleep (bpm): 66 62 REM (bpm): N/A 93 NREM (bpm): 87 87 Tachycardia Count: 0 0 Tachycardia Duration: 0.00 0 Bradycardia Count: 0 0 Bradycardia Duration: 0.00 0 DIAGNOSTIC PORTION TREATMENT PORTION RESPIRATORY DATA Event Count Index Event Count Index AHI: -- 47.6 -- 13.8 RDI: -- 47.6 -- 14 Obstructive Apnea: 4 2.0 5 1.1 Central Apnea: 0 0.0 1 0.2 Mixed Apnea: 0 0.0 0 0.0 Hypopnea: 92 45.6 55 12.4 RERA: 0 0.0 0 0.0 Total Apneas: 4 2.0 6 1.4 RESPIRATORY DATA REM NREM SLEEP REM NREM SLEEP Supine Position: Obstructive Apneas: N/A 4 4 1 4 5 Central Apneas: N/A 0 0 0 1 1 Mixed Apneas: N/A 0 0 0 0 0 Hypopneas: N/A 92 92 0 53 53 RERA N/A 0 0 0 0 0 Total Supine Events: N/A 96 96 1 58 59 Supine AHI: N/A 47.6 48 1 23.5 17.1 Supine RDI: N/A 47.6 47.6 1.0 23.5 17.1 REM NREM SLEEP REM NREM SLEEP Non-Supine Position: Obstructive Apneas: N/A N/A N/A N/A 0 0 Central Apneas: N/A N/A N/A N/A 0 0 Mixed Apneas: N/A N/A N/A N/A 0 0 Hypopneas: N/A N/A N/A N/A 2 2 RERA N/A N/A N/A N/A 0 0 Total Supine Events: N/A N/A N/A N/A 2 2 Supine AHI: N/A N/A N/A N/A 2.0 2.0 Supine RDI: N/A N/A N/A N/A 2.0 2.0 OXYGEN DESTAURATION DATA: Event Count Index Event Count Index REM Desaturations: N/A N/A 1 1.0 NREM Desaturations: 93 46.1 66 19.1 SNORE DATA DIAGNOSTIC TREATMENT Snore Time: 2.3 11:31:12 PM Snore TST%: 1 2 Snore Arousal Count: 2 3 Snore Arousal Index: 1.0 0.7 Desaturation Event Summary: Minimum %SpO2 Event Count Mean/Min/Max Duration(sec.) Desaturation Index % Time In Bed > 90 92 30.3 / 5.0 / 59.3 62.8 19.3 86 - 90 150 27.6 / 4.8 / 60.0 31.6 62.6 81 - 85 17 17.3 / 4.8 / 59.3 13.2 17.1 76 - 80 0 N/A 0.0 1.0 71 - 75 0 N/A 0.0 0.0 66 - 70 0 N/A 0.0 0.0 61 - 65 0 N/A 0.0 0.0 56 - 60 0 N/A 0.0 0.0 51 - 55 0 N/A 0.0 0.0 < 50 0 N/A 0.0 0.0 OXYGEN SATURATION DATA DIAGNOSTIC TREATMENT SpO2 Mean Sleep: 87 % 88 % SpO2 Mean REM: N/A % 93 % SpO2 Mean NREM: 87 % 87 % SpO2 Minimum Sleep: 76 % 76 % SpO2 Minimum REM: N/A % 87 % SpO2 Minimum NREM: 76 % 76 % Time Below 90% (TST): 89.1 187.1 Time Below 88% (TST): 65.7 132.8 Total REM NREM Awake <50% 0.0 min. 0.0 min. 0.0 min. 0.0 min. 51 - 60% 0.0 min. 0.0 min. 0.0 min. 0.0 min. 61 - 70% 0.0 min. 0.0 min. 0.0 min. 0.0 min. 71 - 80% 4.7 min. 0.0 min. 4.4 min. 0.3 min. 81 - 90% 362.1 min. 3.4 min. 288.9 min. 69.8 min. 91 - 100% 87.9 min. 55.1 min. 26.6 min. 6.2 min. Average 88 93 87 87 Minimum SpO2 76 87 76 80 Desaturation Event Index 24.2 1.0 29.0 27.2 # Desat. Events below 89% 187 N/A 150 37 Time(%) with Saturation below 89% 66.3 0.2 53.2 13.0 Time(min.) with Saturation below 89% 301.6 0.8 241.9 58.9 Recording Mechanical Ordnance Assembler Comments: Mr. Dillon slept in the right and supine positions. Cardiac arrhythmia and arm and leg movements were noted, please see print out. No bruxism noted. Snoring was noted and scored as a 2 on a scale of 1 through 5. (0=no snoring, 5=snoring loud enough to be heard through a closed door or down the barajas way) At 11:35pm he had met specific Split-Night criteria during the diagnostic portion of this study. CPAP was initiated at +4 CMH2O and up-titrated to a level of +15 CMH2O. At 3:29 am one liter of oxygen was added to the cpap. His AHI on 15 cwp was 0 and he was on that setting for 129.1 minutes. His oxygen saturation was under 89% for 64.9 minutes. At 3:51am the oxygen was raised to two liters. His AHI on 15cwp was 1.3 for 151.1 minutes. His oxygen saturation was under 89% for a total of 75.8 minutes. A large Quattro Air full face mask by [employer] was used during titration. He awoke to use the restroom 2 times during the night. He stated that he could breathe much better with the mask on and that he noticed a difference. The final report will be interpreted and signed by a sleep physician. The completed physician report will then be placed in the patient medical record. Therapy Event: Therapy (cm H20) 0 4 6 8 10 12 14 15 Total Time at Pressure (min.) 144.5 6.3 6.6 12.0 26.3 34.4 23.3 230.6 TST at Pressure (min.) 121.0 4.8 5.6 11.0 25.8 33.4 21.3 164.1 # Periods 1 1 1 1 1 1 1 1 Sleep Onset (min.) 2.0 1.5 0.0 0.0 0.0 0.0 0.0 0.0 REM Onset (min.) N/A N/A N/A N/A N/A N/A N/A 172.1 Sleep Efficiency % 83 76 84 91 98 97 91 71 Wakefulness (%) 16.3 23.9 15.2 8.3 1.9 2.9 8.6 28.8 Wakefulness (min.) 23.5 1.5 1.0 1.0 0.5 1.0 2.0 66.5 NREM 1 (%) 15.9 28.2 18.7 16.7 0.0 0.0 12.9 6.7 NREM 1 (min.) 23.0 1.8 1.2 2.0 0.0 0.0 3.0 15.5 NREM 2 (%) 67.5 47.8 66.1 75.0 23.4 74.3 78.5 27.2 NREM 2 (min.) 97.5 3.0 4.3 9.0 6.1 25.6 18.3 62.6 NREM 3 (%) 0.3 0.0 0.0 0.0 74.7 22.8 0.0 11.9 NREM 3 (min.) 0.5 0.0 0.0 0.0 19.7 7.8 0.0 27.5 REM (%) 0.0 0.0 0.0 0.0 0.0 0.0 0.0 25.4 REM (min.) 0.0 0.0 0.0 0.0 0.0 0.0 0.0 58.5 # Arousals 66 2 0 6 9 7 9 28 Arousal Index 32.7 25.2 0.0 32.7 20.9 12.6 25.4 10.2 # Snore 148 22 10 20 26 16 11 28 Snore Index 73.4 276.7 107.7 109.0 60.4 28.7 31.0 10.2 AHI 47.6 50.3 64.6 65.4 23.2 34.1 14.1 1.8 AHI Supine 47.6 50.3 64.6 65.4 23.2 34.1 14.1 1.7 AHI Non-Supine N/A N/A N/A N/A N/A N/A N/A 2.0 NREM AHI 47.6 50.3 64.6 65.4 23.2 34.1 14.1 2.3 REM AHI N/A N/A N/A N/A N/A N/A N/A 1.0 RDI 47.6 50.3 64.6 65.4 23.2 34.1 14.1 1.8 # Obstructive 4 1 0 2 0 0 1 1 # Central Ap 0 0 0 0 1 0 0 0 # Mixed 0 0 0 0 0 0 0 0 # Hypopneas 92 3 6 10 9 19 4 4 RERAS 0 0 0 0 0 0 0 0 Total Respiratory Events 96 4 6 12 10 19 5 5 Time Below SpO2 89.00% (min.) 79.9 4.3 4.1 7.4 22.4 28.2 17.7 78.8 Mean NREM SpO2 (%) 87 85 86 86 86 86 87 87 Mean REM SpO2 (%) N/A N/A N/A N/A N/A N/A N/A 93 Mean Sleep SpO2 (%) 87 85 86 86 86 86 87 89 Min NREM SpO2 (%) 76 78 78 77 76 80 80 79 Min REM SpO2 (%) N/A N/A N/A N/A N/A N/A N/A 87 Position Supine (min.) 121.0 4.8 5.6 11.0 25.8 33.4 21.3 104.6 Position Non-supine (min.) 0.0 0.0 0.0 0.0 0.0 0.0 0.0 59.5 LM Index Sleep 98.2 113.2 75.4 76.3 20.9 57.4 84.7 58.8 LM Index NREM 98.2 113.2 75.4 76.3 20.9 57.4 84.7 56.8 LM Index REM N/A N/A N/A N/A N/A N/A N/A 62.6 Mean Heart Rate (bpm) 66 59 59 58 58 60 60 64 Min Heart Rate (bpm) 45 49 52 48 49 53 52 50
--- NOTE | 2017-09-11 12:58 | POLYSOMNOGRAPH REPORT ---
CLINICAL DATA: An 82-year-old male with BMI of 32.5, referred by Dr. Hamilton Stein. He is a patient at [facility]. He has snoring, excessive daytime sleepiness, and nocturnal hypoxemia. He does awaken gasping. He has history of atrial fibrillation. His Douglas sleepiness score is 10/21. This was a split night study. SLEEP ARCHITECTURE: For the diagnostic portion of the study, sleep period time was 142.5 minutes. Total sleep time was 121 minutes, all non-REM sleep. Sleep latency was 2 minutes. Sleep efficiency was 84%. Arousal index was 32.7. Sleep consisted of stage N1 19% and stage N2 81%. For the treatment portion of this study, sleep period time was 338 minutes. Total sleep time was 266 minutes divided between 207.5 minutes of non-REM sleep and 58.5 minutes of REM sleep. Sleep latency was 1.5 minutes. Sleep efficiency was 78%. Arousal index was 13.8. Sleep consisted of stage N1 9%, stage N2 48, stage N3 21%, and REM 22%. AROUSAL DATA: Prior to treatment, 66 arousals recorded for an index of 32.7 per hour. With treatment, 61 arousals were recorded for an index of 13.8 per hour. PLM DATA: Prior to treatment, 150 limb movements during sleep were noted for an index of 75.4 per hour. With treatment, 220 limb movements during sleep were noted for an index of 49.6 per hour. EKG: Heart ranged from 62-87 beats per minute. Atrial fibrillation and seen intermittently throughout the night. RESPIRATORY DATA: Severe sleep apnea was documented prior to treatment. The diagnostic AHI was 47.6. There were 4 obstructive apneic episodes and 92 hypopneic episodes. The mean AHI with treatment was 13.8. There were 5 obstructive and 1 central apneic episodes and 55 hypopneic episodes. OXIMETRY DATA: Nocturnal hypoxemia was seen prior to treatment. Oxygen billy was 76% during non-REM sleep prior treatment. Mean saturation for the treatment was 88%. QUALITY ASSURANCE INSPECTOR'S COMMENTS AND TREATMENT SUMMARY: The patient slept in the right and supine positions, intermittent atrial fibrillation was seen. Arm and leg movements were noted throughout the night. Snoring was mild, rated 2 on a scale of 1 through 5. At 11:35 p.m. he met split night criteria. He used a large Quattro Air full facemask by [employer]. He was started on CPAP and was titrated up to a final pressure setting of 15 cm water pressure. At that level, he was stable but continued to require oxygen, 1 liter per minute was added and then it was increased to 2 liters per minute. His oxygen saturation was below 89% for 75.8 minutes with adequate control of his sleep apnea. He stated he could breathe much better with the mask on. IMPRESSION: Severe sleep apnea/hypopnea, severe nocturnal hypoxemia with diagnostic AHI of 47.6 and oxygen billy of 76% improved with CPAP at 15 cm of water pressure, oxygen at 3 liters per minute using a large Quattro Air full facemask by [employer]. RECOMMENDATIONS: The patient will be started on CPAP at 15 cm of water pressure with oxygen 2-3 liters per minute. He should be seen back in followup within 90 days to document efficacy and compliance. His AHI on 15 cm of water pressure was 1.8 which is excellent.
== END | disposition home or self-care (01) ==
LOC: C.NEUR 20:00
PROVIDERS: ATTEND Nurse Practitioner Adult Health
DX: G47.30 Sleep apnea, unspecified (principal)

== ENCOUNTER 2017-10-04 16:37 | Inpatient (IN) | payer OTHER ==
[~2017-10-04] VITALS: Ht 175.3 cm; Wt 108.1 kg
--- NOTE | 2017-10-04 17:17 | EMERGENCY ROOM VISIT NOTE ---
History First contact with patient: 16:41 Chief Complaint: RECTAL BLEEDING Stated Complaint: RECTAL BLEEDING Nursing Triage Summary: PT HX of A-fib, on Xarelto, today PT had large amount of bright red blood in depends and noted in BM. PT denies any other complaints at this time. History of Present Illness The patient is a 82 year old male who presents to the Emergency Room with complaints of rectal bleeding. The patient is on Xarelto for A. fib. The patient reports in the past 2 hours he is had 2 large bowel movements of bright red blood. The patient denies having any abdominal pain. He reports he has not been able to have a colonoscopy due to his heart. He reports he has had rectal bleeds in the past. Review of Systems See HPI for pertinent positives & negatives. A total of 10 systems reviewed and were otherwise negative. 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 (11) Urinary incontinence due to urethral sphincter incompetence Surgical Problems: (1) History of partial colectomy (2) S/P tonsillectomy Family History Cancer Diabetes mellitus Kidney disease Kidney stones Social History Smoking Status: Never Smoker Drug Use: none Marital Status: Housing Status: lives with family Occupation Status: retired Current/Historical Medications Scheduled Cyanocobalamin (Vitamin B12), 1,000 MG PO QAM Diltiazem Hcl Ext Rel (Tiazac), 240 MG PO DAILY Docusate Sodium (Colace), 1 CAP PO BID Ferrous Sulfate (Ferrous Sulfate), 325 MG PO BID Fluoxetine HCl (Fluoxetine HCl), 10 MG PO DAILY Glipizide (Glucotrol), 10 MG PO BID Glucosamine-Chondroitin (Osteo Bi-Flex Regular Str), 1 TAB PO DAILY Hydrochlorothiazide (Hctz), 25 MG PO DAILY Insulin Aspart (Novolog Flexpen), 1 DOSE SC TID Insulin Glargine (Lantus), 90 UNITS SC QPM Insulin Glargine (Lantus), 56 UNITS SC QAM Metoprolol Succinate (Metoprolol Succinate ER), 100 MG PO QAM Metoprolol Succinate (Toprol Xl), 50 MG PO DAILY Nortriptyline HCl (Nortriptyline HCl), 20 MG PO HS Ranitidine (Zantac), 150 MG PO QAM Rivaroxaban (Xarelto), 20 MG PO QAM Rosuvastatin Calcium (Rosuvastatin Calcium), 40 MG PO QAM Vitamin E (Vitamin E 400 Iu), 400 INTER.UNIT PO DAILY Scheduled PRN Acetaminophen (Tylenol), 650 MG PO Q4H PRN for Pain or Fever Ipratropium-Albuterol (Combivent Respimat), 1 PUFF INH Q6H PRN for Shortness of Breath Loperamide Hcl (Anti-Diarrheal), 2 MG PO Q4H PRN for Diarrhea Nitroglycerin (Intra-Anal) (Rectiv), 1 DOSE RE BID PRN for Pain Ondansetron Hcl (Zofran), 4 MG PO Q8 PRN for Nausea or Vomiting Physical Exam Vital Signs Date Time Temp Pulse Resp B/P (MAP) Pulse Ox O2 Delivery O2 Flow Rate FiO2 10/04/17 18:41 94 Room Air 10/04/17 18:31 82 16 147/62 94 Room Air 10/04/17 17:10 98 Room Air 10/04/17 17:07 90 10/04/17 16:50 36.5 84 18 147/67 94 Room Air Physical Exam GENERAL: Patient is a healthy-appearing well-nourished male HEAD: Normocephalic atraumatic EYES: Ocular movements intact pupils equal and react to light OROPHARYNX mucous membranes are moist no exudates present no erythema or edema present NECK: Supple no nuchal rigidity CHEST: Good equal expansion LUNGS: Clear and equal to auscultation CARDIAC: Normal S1 and S2 ABDOMEN: Soft nontender no guarding Rectal: No masses noted on exam, Bright red blood noted BACK: No CVA tenderness EXTREMITIES: No pain upon palpation normal muscle strength in all groups no clubbing cyanosis or edema NEURO: Patient is following commands is answering questions appropriately. Alert and oriented x3 Cranial Nerves 2-12 grossly intact Medical Decision & Procedures Laboratory Results Test 10/04/17 17:22 Immature Granulocyte % (Auto) 0.1 % White Blood Count 7.83 K/uL (4.8-10.8) Red Blood Count 4.36 M/uL (4.7-6.1) Hemoglobin 13.8 g/dL (14.0-18.0) Hematocrit 41.4 % (42-52) Mean Corpuscular Volume 95.0 fL (80-100) Mean Corpuscular Hemoglobin 31.7 pg (25-34) Mean Corpuscular Hemoglobin Concent 33.3 g/dl (32-36) Platelet Count 229 K/uL (130-400) Mean Platelet Volume 10.2 fL (7.4-10.4) Neutrophils (%) (Auto) 70.4 % Lymphocytes (%) (Auto) 18.9 % Monocytes (%) (Auto) 8.6 % Eosinophils (%) (Auto) 1.7 % Basophils (%) (Auto) 0.3 % Neutrophils # (Auto) 5.52 K/uL (1.4-6.5) Lymphocytes # (Auto) 1.48 K/uL (1.2-3.4) Monocytes # (Auto) 0.67 K/uL (0.11-0.59) Eosinophils # (Auto) 0.13 K/uL (0-0.5) Basophils # (Auto) 0.02 K/uL (0-0.2) Immature Granulocyte # (Auto) 0.01 K/uL (0.00-0.02) Activated Partial Thromboplast Time 33.3 SECONDS (21.0-31.0) Partial Thromboplastin Ratio 1.3 Total Bilirubin 0.2 mg/dl (0.2-1) Direct Bilirubin < 0.1 mg/dl (0-0.2) Aspartate Amino Transf (AST/SGOT) 28 U/L (15-37) Alanine Aminotransferase (ALT/SGPT) 27 U/L (12-78) Alkaline Phosphatase 77 U/L (45-117) Total Protein 7.0 gm/dl (6.4-8.2) Albumin 2.9 gm/dl (3.4-5.0) Lipase 79 U/L (73-393) Medications Administered Medications (Trade) Dose Ordered Sig/Melany Route Start Time Stop Time Status Last Admin Dose Admin Pantoprazole Sodium 80 mg/ Dextrose 120 ml @ 480 mls/hr NOW STAT IV 10/04/17 17:50 10/04/17 18:04 DC 10/04/17 18:31 480 MLS/HR Pantoprazole Sodium 40 mg/ Dextrose 100 ml @ 20 mls/hr Q5H IV 10/04/17 18:15 10/04/17 20:37 DC 10/04/17 18:31 20 MLS/HR Medical Decision This is an 82-year-old male who presents emergency department complaining of bright red blood per rectum. The patient has normal CBC normal renal profile normal liver profile. However he is on Xarelto. He was given Protonix bolus and drip. I did discuss the case with the hospitalist service who agreed to admit the patient. Patient and family were in agreement with the treatment plan. Medication Reconcilliation Current Medication List: was personally reviewed by me Impression Primary Impression: GI bleeding Departure Information Dispostion Still a Patient Referrals MICHAEL AGUILAR (PCP) Patient Instructions My [facility] Problem Qualifiers Primary Impression: GI bleeding GI bleed type/associated pathology: unspecified gastrointestinal hemorrhage type Qualified Codes: K92.2 - Gastrointestinal hemorrhage, unspecified
[2017-10-04 17:32] LABS: BASO % 0.3 %; BASO ABS # 0.02 K/uL (0-0.2); COMPLETE YES; EOS % 1.7 %; HEMATOCRIT 41.4 % (42-52); IG% 0.1 %; LYMPH % 18.9 %; LYMPH ABS # 1.48 K/uL (1.2-3.4); MEAN CORPUSCULAR HEMOGLOBIN 31.7 pg (25-34); MEAN CORPUSCULAR HGB CONC 33.3 g/dl (32-36); MEAN PLATELET VOLUME 10.2 fL (7.4-10.4); MONO % 8.6 %; NEUT % 70.4 %; PLATELET COUNT 229 K/uL (130-400); RED BLOOD COUNT 4.36 M/uL (4.7-6.1); WHITE BLOOD COUNT 7.83 K/uL (4.8-10.8)
[2017-10-04 17:40] LABS: INR 1.2 (0.9-1.1); PARTIAL THROMBOPLASTIN RATIO 1.3; PROTHROMBIN TIME (PATIENT) 12.7 SECONDS (9.0-12.0)
[2017-10-04] MEDS ORDERED: INSDGI SC ×2 (17:49→17:55)
[2017-10-04] MEDS ORDERED: PANTOprazole INJ 80 MG in DEXTROSE 5% 100ML IV STA (17:50)
[2017-10-04] MEDS ORDERED: METO-217 PO (17:50)
[2017-10-04] MEDS ORDERED: DILT-115 PO (17:52)
[2017-10-04] MEDS ORDERED: DOCU-94 PO (17:52)
[2017-10-04] MEDS ORDERED: GLIP10TA3 PO (17:53)
[2017-10-04] MEDS ORDERED: HYDR25TA4 PO (17:54)
[2017-10-04] MEDS ORDERED: NITR1OIN RE (17:57)
[2017-10-04 18:06] LABS: ALT/SGPT 27 U/L (12-78); AST/SGOT 28 U/L (15-37); BLOOD UREA NITROGEN 18 mg/dl (7-18); BUN/CREATININE RATIO 12.7 (10-20); CALCIUM 8.6 mg/dl (8.5-10.1); CARBON DIOXIDE 30 mmol/L (21-32); CHLORIDE 101 mmol/L (98-107); CREATININE 1.42 mg/dl (0.60-1.40); GLUCOSE 235 mg/dl (70-99); POTASSIUM 4.2 mmol/L (3.5-5.1); SODIUM 134 mmol/L (136-145)
[2017-10-04 18:09] LABS: ALKALINE PHOSPHATASE 77 U/L (45-117)
[2017-10-04] MEDS ORDERED: PANTOprazole INJ 40 MG in DEXTROSE 5% 100ML IV SCH (18:15)
[2017-10-04 18:41] VITALS: O2SAT 94; BMI 42.4
[2017-10-04] MEDS ORDERED: DEXTROSE 50% 50 ML SYR IV PRN (18:45)
[2017-10-04] MEDS ORDERED: GLUCOSE 40% GEL 15 GM TUBE PO PRN (18:45)
[2017-10-04] MEDS ORDERED: IPRATROPIUM BROMIDE/ALBUTEROL respimat INH INH PRN (18:45)
[2017-10-04] MEDS ORDERED: GLUCAGON FOR INJ 1 MG VIAL SQ PRN (18:45)
[2017-10-04] MEDS ORDERED: GLUCOSE 10 TABS/TUBE PO PRN (18:45)
[2017-10-04] MEDS ORDERED: ONDANSETRON INJ 2 MG/ML 2 ML VIAL IV PRN (18:45)
[2017-10-04] MEDS ORDERED: ACETAMINOPHEN 325 MG TAB PO PRN (18:45)
[2017-10-04] MEDS ORDERED: MAGNESIUM HYDROXIDE SUSP 30 ML UDC PO PRN (18:45)
--- NOTE | 2017-10-04 19:51 | History and Physical ---
History & Physical Date & Time of Service: Oct 04, 2017 at 19:26 Chief Complaint: Rectal Bleeding Primary Care Physician: Tequila Hunt History of Present Illness Source: patient, family, clinic records, hospital records This is a 82 year old male with a PMH of atrial fibrillation on Xarelto, HTN, HLD, insulin dependent DM2, JB on CPAP, hx. of prostate CA s/p radiation s/p surgery, recent hx. of LGIB in January 2017 - presented from [facility] with two episodes of bright red blood per rectum. He had a similar episode in January requiring blood transfusions - colonoscopy at that time showed non-bleeding colonic angiodysplasia. He had been on Xarelto, which was stopped in January. Sometime afterwards, the Xarelto had been restarted. Patient denies chest pain/ palpitations; denies fevers/chills, denies abdominal pain, denies constipation or diarrhea - he states he does get short of breath - was recently started on CPAP about a week ago due to sleep apnea. 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 Surgical Problems: (1) History of partial colectomy Status: Chronic (2) S/P tonsillectomy Status: Chronic Family History Cancer Diabetes mellitus Kidney disease Kidney stones Social History Smoking Status: Never Smoker Drug Use: none Marital Status: Housing status: lives alone Occupational Status: retired Immunizations History of Influenza Vaccine: N/A Influenza Vaccine Date: Jun 07, 2008 History of Tetanus Vaccine?: Yes History of Pneumococcal: Yes Pneumococcal Date: Jun 23, 2011 History of Hepatitis B Vaccine: No Allergies Coded Allergies: Cefuroxime (Verified Allergy, Unknown, Unknown, 02/06/17) Metformin (Verified Allergy, Unknown, Unknown, 02/06/17) Home Medications Scheduled Cyanocobalamin (Vitamin B12), 1,000 MG PO QAM Diltiazem Hcl Ext Rel (Tiazac), 240 MG PO DAILY Docusate Sodium (Colace), 1 CAP PO BID Ferrous Sulfate (Ferrous Sulfate), 325 MG PO BID Fluoxetine HCl (Fluoxetine HCl), 10 MG PO DAILY Glipizide (Glucotrol), 10 MG PO BID Glucosamine-Chondroitin (Osteo Bi-Flex Regular Str), 1 TAB PO DAILY Hydrochlorothiazide (Hctz), 25 MG PO DAILY Insulin Aspart (Novolog Flexpen), 1 DOSE SC TID Insulin Glargine (Lantus), 90 UNITS SC QPM Insulin Glargine (Lantus), 56 UNITS SC QAM Metoprolol Succinate (Metoprolol Succinate ER), 100 MG PO QAM Metoprolol Succinate (Toprol Xl), 50 MG PO DAILY Nortriptyline HCl (Nortriptyline HCl), 20 MG PO HS Ranitidine (Zantac), 150 MG PO QAM Rivaroxaban (Xarelto), 20 MG PO QAM Rosuvastatin Calcium (Rosuvastatin Calcium), 40 MG PO QAM Vitamin E (Vitamin E 400 Iu), 400 INTER.UNIT PO DAILY Scheduled PRN Acetaminophen (Tylenol), 650 MG PO Q4H PRN for Pain or Fever Ipratropium-Albuterol (Combivent Respimat), 1 PUFF INH Q6H PRN for Shortness of Breath Loperamide Hcl (Anti-Diarrheal), 2 MG PO Q4H PRN for Diarrhea Nitroglycerin (Intra-Anal) (Rectiv), 1 DOSE RE BID PRN for Pain Ondansetron Hcl (Zofran), 4 MG PO Q8 PRN for Nausea or Vomiting Review of Systems Constitutional: No fever, No chills Respiratory: No cough, No sputum, No wheezing, No shortness of breath, No dyspnea on exertion Cardiovascular: No chest pain, No edema, No palpitations Abdomen: + GI bleeding, No pain, No nausea, No vomiting, No diarrhea, No constipation Musculoskeletal: No joint pain, No muscle pain Genitourinary - Male: + urinary incontinence, No hematuria, No dysuria, No urinary frequency, No urinary urgency, No urinary hesitancy, No urinary retention Neurologic: No numbness/tingling, No vertigo, No balance problems Psychiatric: No depression symptoms, No anxiety, No insomnia Endocrine: No fatigue Hematologic / Lymphatic: + abnormal bleeding/bruising Integumentary: No rash Allergic / Immunologic: No environmental allergies, No seasonal allergies Physical Exam Vital Signs Date Time Temp Pulse Resp B/P (MAP) Pulse Ox O2 Delivery O2 Flow Rate FiO2 10/04/17 18:41 94 Room Air 10/04/17 18:31 82 16 147/62 94 Room Air 10/04/17 17:10 98 Room Air 10/04/17 17:07 90 10/04/17 16:50 36.5 84 18 147/67 94 Room Air General Appearance: no apparent distress Head: normocephalic, atraumatic Eyes: normal inspection ENT: hearing grossly normal Neck: supple Respiratory/Chest: chest non-tender, lungs clear, normal breath sounds, no respiratory distress, no accessory muscle use Cardiovascular: no edema, no murmur, + irregularly irregular Abdomen/GI: normal bowel sounds, non tender, soft, no organomegaly Extremities/Musculoskelatal: normal inspection, no calf tenderness, normal capillary refill, no pedal edema Neurologic/Psych: director of occupational health II-XII nml as tested, no motor/sensory deficits, alert, normal mood/affect, oriented x 3 Skin: normal color, + pertinent finding (+skin sloughing/wounds noted at the L anterior luna) Lymphatic: no adenopathy Diagnostics Laboratory Results Results Past 24 Hours Test 10/04/17 17:22 Range/Units White Blood Count 7.83 4.8-10.8 K/uL Red Blood Count 4.36 4.7-6.1 M/uL Hemoglobin 13.8 14.0-18.0 g/dL Hematocrit 41.4 42-52 % Mean Corpuscular Volume 95.0 80-100 fL Mean Corpuscular Hemoglobin 31.7 25-34 pg Mean Corpuscular Hemoglobin Concent 33.3 32-36 g/dl Platelet Count 229 130-400 K/uL Mean Platelet Volume 10.2 7.4-10.4 fL Neutrophils (%) (Auto) 70.4 % Lymphocytes (%) (Auto) 18.9 % Monocytes (%) (Auto) 8.6 % Eosinophils (%) (Auto) 1.7 % Basophils (%) (Auto) 0.3 % Neutrophils # (Auto) 5.52 1.4-6.5 K/uL Lymphocytes # (Auto) 1.48 1.2-3.4 K/uL Monocytes # (Auto) 0.67 0.11-0.59 K/uL Eosinophils # (Auto) 0.13 0-0.5 K/uL Basophils # (Auto) 0.02 0-0.2 K/uL RDW Standard Deviation 47.4 36.4-46.3 fL RDW Coefficient of Variation 13.8 11.5-14.5 % Immature Granulocyte % (Auto) 0.1 % Immature Granulocyte # (Auto) 0.01 0.00-0.02 K/uL Prothrombin Time 12.7 9.0-12.0 SECONDS Prothromb Time International Ratio 1.2 0.9-1.1 Activated Partial Thromboplast Time 33.3 21.0-31.0 SECONDS Partial Thromboplastin Ratio 1.3 Sodium Level 134 136-145 mmol/L Potassium Level 4.2 3.5-5.1 mmol/L Chloride Level 101 98-107 mmol/L Carbon Dioxide Level 30 21-32 mmol/L Anion Gap 3.0 3-11 mmol/L Blood Urea Nitrogen 18 7-18 mg/dl Creatinine 1.42 0.60-1.40 mg/dl Est Creatinine Clear Calc Drug Dose 52.7 ml/min Estimated GFR () 52.6 Estimated GFR (Non- 45.4 BUN/Creatinine Ratio 12.7 10-20 Random Glucose 235 70-99 mg/dl Calcium Level 8.6 8.5-10.1 mg/dl Total Bilirubin 0.2 0.2-1 mg/dl Direct Bilirubin < 0.1 0-0.2 mg/dl Aspartate Amino Transf (AST/SGOT) 28 15-37 U/L Alanine Aminotransferase (ALT/SGPT) 27 12-78 U/L Alkaline Phosphatase 77 45-117 U/L Total Protein 7.0 6.4-8.2 gm/dl Albumin 2.9 3.4-5.0 gm/dl Lipase 79 73-393 U/L EKG Sinus rhythm with Premature atrial complexes T wave abnormality, consider lateral ischemia Impression Assessment and Plan This is a 82 year old male with a PMH of atrial fibrillation on Xarelto, HTN, HLD, insulin dependent DM2, BJ on CPAP, hx. of prostate CA s/p radiation s/p surgery, recent hx. of LGIB in January 2017 presents with LGIB LGIB bright red blood per rectum patient with a colonoscopy in January 2017 - showed a non-bleeding colonic angiodysplasia Xarelto was stopped at that time and restarted later as an outpatient will hold Xarelto and aspirin H/H q4 for now monitor in tele PPI drip continue ferrous sulfate GI consultation Jose Vann currently in A. Fib with rate control will continue Cardizem and Metoprolol for rate control hold Xarelto consulted cardiology for further input at this point, risk of bleeding outweighs risk of stroke Insulin Dependent DM2 patient takes Lantus over 90 units in the PM and over 50 units in the AM currently, he is on a clear liquid diet, so we will do Lantus 40 units BID with a sliding scale for now monitor BSGs closely glycemic control consultation placed BJ ordered for nocturnal CPAP - patient unsure of his settings as this was just started about one week prior Traumatic Wound patient hit his L luna on something a few weeks back skin is still open no infection noted over this will consult wound care DVT ppx SCDs FULL CODE Advanced Directives Existing Living Will: No Existing Power of Police [employer]: No VTE Prophylaxis VTE Risk Assessment Done? Y/N: Yes Risk Level: High Given or contraindicated: Contraindicated
[2017-10-04] MEDS ORDERED: PHARMACY GLYCEMIC MGMT CONSULT SCH (19:52)
[2017-10-04 20:00] VITALS: BP 147/77; PULSE 74; TEMP 36.9; O2SAT 93
[2017-10-04] MEDS: SODIUM CHLORIDE 0.9% 1000ML 1,000 ML IV SCH (20:48)
[2017-10-04 20:50] LABS: HEMATOCRIT 38.6 % (42-52)
[2017-10-04] MEDS: FERROUS SULFATE 325 MG TAB PO SCH (21:01)
[2017-10-04] MEDS: DOCUSATE SODIUM 100 MG CAP PO SCH (21:01)
[2017-10-04] MEDS ORDERED: INSULIN GLARGINE SOLOSTAR 100 UNITS/ML 3 ML PEN SC STA (21:05)
[2017-10-04] MEDS: INSULIN ASPART 100 UNITS/ML 3 ML PEN SC SCH (21:40)
--- NOTE | 2017-10-04 21:42 | Pharmacy Progress Note ---
Glycemic Control Intl Consult Date of Service Oct 04, 2017. Scope Glycemic Pharmacist consulted by Dr De Los Santos on 10/04/17 for glycemic control and to write orders per [facility] inpatient glycemic control protocol Objective Weight (Kilograms): 130.300 Accuchecks BSG (last 24hrs): Test 10/04/17 17:22 10/04/17 20:35 Random Glucose 235 mg/dl (70-99) Bedside Glucose 173 mg/dl (70-99) Laboratory Data (last 24hrs) Test 10/04/17 17:22 Anion Gap 3.0 mmol/L BUN/Creatinine Ratio 12.7 Blood Urea Nitrogen 18 mg/dl Creatinine 1.42 mg/dl Potassium Level 4.2 mmol/L Sodium Level 134 mmol/L White Blood Count 7.83 K/uL Red Blood Count 4.36 M/uL Hemoglobin 13.8 g/dL Hematocrit 41.4 % Mean Corpuscular Volume 95.0 fL Mean Corpuscular Hemoglobin 31.7 pg Mean Corpuscular Hemoglobin Concent 33.3 g/dl Platelet Count 229 K/uL Mean Platelet Volume 10.2 fL Neutrophils (%) (Auto) 70.4 % Lymphocytes (%) (Auto) 18.9 % Monocytes (%) (Auto) 8.6 % Eosinophils (%) (Auto) 1.7 % Basophils (%) (Auto) 0.3 % Neutrophils # (Auto) 5.52 K/uL Lymphocytes # (Auto) 1.48 K/uL Monocytes # (Auto) 0.67 K/uL Eosinophils # (Auto) 0.13 K/uL Basophils # (Auto) 0.02 K/uL Recent Pertinent Medications Outpatient Anti-diabetic Regimen: * A1c = 8.3 % 07/16/17 * Lantus 56u QAM & Lantus 90u QPM * Novolog SS Risk Factors for Insulin Resistance: * IVF:Dextrose containing Protonix gtt * Diet: Clear Liquid Diet. I spoke with admitting nurse. Pt endorses being very hungry with plans to eat his full tray. Assessment & Plan ASSESSMENT: * Pt is an 82 yo M being admitted for GIB. Current out-patient regimen seems to be basal heavy. ADA & AACE recommend a goal blood sugar range 140-180 mg/dl for the majority of critically ill & non-critically ill patients. However, more stringent targets may be selected in individual cases. Without any insulin given Mr. Byers's BSG trended from 235 --> 173. 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 Unsure what his PO intake has been thus far. PLAN FOR INPATIENT GLYCEMIC CONTROL: * Basal insulin with LANTUS 25u X1 @2100. Per previous admission it looks like basal insulin was being held. However, given his BSGs this time around I plan to provide a one time lantus dose to cover him metabolically. * Correctional Insulin with NOVOLOG per scale ACHS and 0000 & 0400. * Goal Range: Low 140 mg/dL - High 180 mg/dL * Correction Factor: 20 mg/dL/unit * Nutritional / Prandial insulin per carb ratio of 1 unit per 6 grams CHO consumed * This CF/CR seemed to yield positive outcome during previous admission, will continue this. * Please note that the plan above was derived based on current level of insulin resistance and hospital stress. These recommendations are appropriate for inpatient admission only. Plan of care upon discharge will need to be reassessed to avoid potential outpatient hypo/hyperglycemia. Thank you.
[2017-10-04 22:13] LABS: URINE APPEARANCE CLOUDY (CLEAR); URINE BILIRUBIN NEG (NEG); URINE COLOR YELLOW; URINE EPITHELIAL CELL AUTO >30 /lpf (0-5); URINE NITRITE NEG (NEG); URINE PH 7.5 (4.5-7.5); URINE SPECIFIC GRAVITY 1.019 (1.000-1.030); UROBILINOGEN NEG (NEG)
[2017-10-04 22:16] LABS: MANUAL MICROSCOPIC REQUIRED? NO; REVIEW REQ? YES
[2017-10-04] MEDS: PANTOprazole INJ 40 MG in DEXTROSE 5% 100ML IV SCH (22:38)
[2017-10-05] VITALS (8 sets, daily range): BP systolic 111–162; BP diastolic 59–77; PULSE 54–84; TEMP 36.3–36.8; O2SAT 91–98; Ht 175.3 cm; Wt 108.1 kg
[2017-10-05 00:08] LABS: HEMATOCRIT 37.9 % (42-52)
[2017-10-05] MEDS: INSULIN ASPART 100 UNITS/ML 3 ML PEN SC SCH ×6 (04:00→21:22)
[2017-10-05 04:28] LABS: HEMATOCRIT 39.7 % (42-52); MEAN CELL VOLUME 95.7 fL (80-100); MEAN CORPUSCULAR HEMOGLOBIN 31.8 pg (25-34); MEAN CORPUSCULAR HGB CONC 33.2 g/dl (32-36); MEAN PLATELET VOLUME 10.1 fL (7.4-10.4); PLATELET COUNT 220 K/uL (130-400); RED BLOOD COUNT 4.15 M/uL (4.7-6.1); WHITE BLOOD COUNT 6.49 K/uL (4.8-10.8)
[2017-10-05 04:31] LABS: INR 1.1 (0.9-1.1); PROTHROMBIN TIME (PATIENT) 11.6 SECONDS (9.0-12.0)
[2017-10-05 04:37] LABS: BUN/CREATININE RATIO 12.3 (10-20); CALCIUM 8.3 mg/dl (8.5-10.1); CREATININE 1.22 mg/dl (0.60-1.40); POTASSIUM 4.3 mmol/L (3.5-5.1)
[2017-10-05] MEDS: PANTOprazole INJ 40 MG in DEXTROSE 5% 100ML IV SCH ×4 (05:18→19:30)
[2017-10-05 07:39] LABS: ESTIMATED AVERAGE GLUCOSE 200 mg/dl; HA1C FLAG Normal (Normal)
[2017-10-05] MEDS: RANITIDINE HCL 150 MG TAB PO SCH (07:59)
[2017-10-05] MEDS: DILTIAZEM HCL 120 MG EXT REL CAP PO SCH (07:59)
[2017-10-05] MEDS: FERROUS SULFATE 325 MG TAB PO SCH ×2 (07:59→21:17)
[2017-10-05] MEDS: DOCUSATE SODIUM 100 MG CAP PO SCH ×2 (07:59→21:00)
[2017-10-05] MEDS: METOPROLOL SUCC 50MG EXT REL TAB PO SCH (07:59)
[2017-10-05] MEDS: FLUOXETINE HCL 10 MG CAP PO SCH (07:59)
[2017-10-05 08:13] LABS: HEMATOCRIT 41.5 % (42-52)
[2017-10-05] MEDS ORDERED: ROSUVASTATIN CALCIUM 20 MG TAB PO SCH (09:00)
[2017-10-05] MEDS ORDERED: METOPROLOL SUCC 50MG EXT REL TAB PO SCH (09:00)
[2017-10-05] MEDS: SODIUM CHLORIDE 0.9% 1000ML 1,000 ML IV SCH ×2 (09:15→21:44)
[2017-10-05] MEDS ORDERED: AMIODARONE 200 MG TAB PO ONE (10:15)
--- NOTE | 2017-10-05 10:18 | Pharmacy Progress Note ---
Pharmacy Glycemic Short Note 2 Date of Service Oct 05, 2017. OUTPATIENT ANTIDIABETIC REGIMEN: * Lantus 56 units in AM + 90 units in PM * NovoLog per Sliding Scale * Total daily outpatient dose = 146+ units * A1c = 8.6% on 10/05/17 ASSESSMENT: Item Value Date Time Bedside Glucose 173 mg/dl H 10/04/172034 Bedside Glucose 177 mg/dl H 10/05/17 0002 Bedside Glucose 93 mg/dl 10/05/17 0407 Bedside Glucose 99 mg/dl 10/05/17 0745 * 82yo T2DM male known to pharmacy from previous admissions/glycemic consults * Per past admissions, patient requires significantly less insulin for admission as compared to outpatient regimen, especially while on clears * AM fasting BSG is slightly below goal range per inpatient targets this morning at 99 mg/dl * Pt received Lantus 56 units {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 Total dose of basal insulin yesterday = 81 units. Typically, patient requires ~ 25 units of basal insulin while admitted and on reduced PO intake diet. * Will empirically decrease dosing to prevent LOW * Per past admissions, current CF/CR worked well to control post-prandial hyperglycemia. PLAN FOR INPATIENT GLYCEMIC CONTROL: * Basal insulin: decrease dosing. * Lantus 22 units SQ BID- will start dosing this evening when BSG >140 mg/dl * Bolus insulin: no change * NovoLog per scale ACHS or Q6hrs while NPO * Goal Range: Low 140 mg/dL - High 180 mg/dL * Correction Factor: 20 mg/dL/unit * Nutritional / Prandial insulin per carb ratio of 1 unit per 6 grams CHO consumed
--- NOTE | 2017-10-05 10:59 | Clinical Documentation Query ---
CLINICAL DOCUMENTATION QUERY 82 year old male who presents to the Emergency Room with complaints of rectal bleeding. In order for coders to capture the BMI of 41, obesity must be documented by the provider in the patient record. In your clinical opinion is this patient being managed for: (x ) Obesity ( ) Not Agree ( ) Other explanation of clinical findings (Please Explain) ( ) Unable to determine (Please Define) ( ) Need to Discuss The medical record reflects the following clinical findings, treatment, and risk factors. Clinical Indicators: BMI 41.4 Treatment: Weight, diet Risk Factors: Age, DM Please clarify and document your clinical opinion in the progress notes and discharge summary. Terms such as "probable", "suspected", "likely", "questionable", "possible", or "still to be ruled out" are acceptable. IF IN AGREEMENT, YOU MUST DOCUMENT ABOVE DIAGNOSTIC STATEMENT IN DAILY PROGRESS NOTES AND DISCHARGE SUMMARY. This document is not part of the patient's record. Thank You, Mecca Head RN [phone]
--- NOTE | 2017-10-05 11:13 | Gastrointestinal Consultation ---
Gastrointestinal Consultation Date of Consultation: Oct 05, 2017 Attending Physician: Serena Consulting Physician: Wyatt Reason for Consultation: LGIB History of Present Illness Patient is a 82 year old male w/ history of afib on xarelto and others listed below who presented through the ED for evaluation of rectal bleeding. Pt was seen and evaluated chart reviewed. He notes he has had rectal bleeding in the past. Three days ago, started with BRBPR and rectal discomfort. He notes with BM he had significant BRBPR. He thinks there was formed stool. He notes this last occurred yesterday morning. Last night he had a semi-formed brown stool without any bleeding. Has not had any dark, tarry stools. No nausea, vomiting. Reports he otherwise feels well. He has internal hemorrhoids. Today, no fever, chills, CP, SOB. Colonoscopy 02/13/17: Multiple non-bleeding colonic angiodysplastic lesions. Non- bleeding internal hemorrhoids. No specimens collected. Past Medical/Surgical History Medical Problems: (1) Acute renal insufficiency Status: Acute (2) Anemia Status: Acute (3) Atrial fibrillation with RVR Status: Acute (4) GI bleed Status: Acute (5) Hematuria Status: Acute (6) Hydronephrosis of right kidney Status: Acute (7) Hypoglycemia Status: Acute (8) intermediate card tender current use of anticoagulant Status: Acute (9) Personal history of kidney stones Status: Acute (10) UTI (urinary tract infection) Status: Acute Past Medical History: AFIB, hemorrhoids T2DM, HTN, hypercholesterolemia, prostate CA. Past Surgical History: partial colectomy, colonoscopy Family History Cancer Diabetes mellitus Kidney disease Kidney stones Social History Smoking Status: Never Smoker Drug Use: none Marital Status: Housing Status: lives with family Occupation Status: retired Allergies Coded Allergies: Cefuroxime (Verified Allergy, Unknown, Unknown, 02/06/17) Metformin (Verified Allergy, Unknown, Unknown, 02/06/17) Current Medications Home Meds and Scripts Medications Dose Route/Sig Max Daily Dose Days Date Category Dose Instructions Rectiv (Nitroglycerin (Intra-Anal)) 0.4 % Oin 1 Dose RE BID PRN 10/04/17 Reported Lantus (Insulin Glargine) 100 Unit/Ml Inj 56 Units SC QAM 10/04/17 Reported Hctz (Hydrochlorothiazide) 25 Mg Tab 25 Mg PO DAILY 10/04/17 Reported Glucotrol (Glipizide) 10 Mg Tab 10 Mg PO BID 10/04/17 Reported Colace (Docusate Sodium) 100 Mg Cap 1 Cap PO BID 10/04/17 Reported Tiazac (Diltiazem HCl) 240 Mg Capcr 240 Mg PO DAILY 10/04/17 Reported Toprol Xl (Metoprolol Succinate) 50 Mg Tabcr 50 Mg PO DAILY 10/04/17 Reported Lantus (Insulin Glargine) 100 Unit/Ml Inj 90 Units SC QPM 10/04/17 Reported Novolog Flexpen (Insulin Aspart) 100 Units/Ml Inj 1 Dose SC TID 02/06/17 Reported COVERAGE DIRECTED BY FOLLOWING SLIDING SCALE: 150-200 2 UNITS 201-240 4 UNITS 241-280 6 UNITS 281-330 8 UNITS 331-360 10 UNITS 361-400 12 UNITS 401-450 14 UNITS >450 15 UNITS AND CALL MD Guerra (Ondansetron HCl) 4 Mg Tab 4 Mg PO Q8 PRN 02/06/17 Reported Anti-Diarrheal (Loperamide Hcl) 2 Mg Cap 2 Mg PO Q4H PRN 02/06/17 Reported Tylenol (Acetaminophen) 325 Mg Tab 650 Mg PO Q4H PRN 02/06/17 Reported MAXIMUM OF 3 GMS APAP/24 HOURS Vitamin E 400 Iu (Vitamin E) 400 Unit Cap 400 Inter.unit PO DAILY 02/06/17 Reported Osteo Bi-Flex Regular Str (Glucosamine-Chondroitin) 1 Tab Tab 1 Tab PO DAILY 02/06/17 Reported Ferrous Sulfate 325 Mg Tab 325 Mg PO BID 02/06/17 Reported Combivent Respimat (Ipratropium-Albuterol) 1 Aer Aer 1 Puff INH Q6H PRN 07/18/16 Reported Fluoxetine HCl 10 Mg Cap 10 Mg PO DAILY 07/02/16 Reported Rosuvastatin Calcium 40 Mg Tab 40 Mg PO QAM 07/02/16 Reported Metoprolol Succinate ER (Metoprolol Succinate) 100 Mg Tabcr 100 Mg PO QAM 12/12/15 Reported tAKE ADDITIONAL 50MG TO MAKE IT 150MG EVERY MORNING Xarelto (Rivaroxaban) 20 Mg Tab 20 Mg PO QAM 12/12/15 Reported Vitamin B12 (Cyanocobalamin) 1,000 Mcg Tab 1,000 Mg PO QAM 08/22/14 Reported Nortriptyline HCl 10 Mg Cap 20 Mg PO HS 08/10/14 Reported Zantac (Ranitidine HCl) 150 Mg Tab 150 Mg PO QAM 02/13/09 Reported Review of Systems Constitutional: No fever, No chills Respiratory: No cough, No shortness of breath Cardiac: No chest pain, No edema Abdomen: + GI bleeding (last episode yesterday AM), No pain, No nausea, No vomiting, No diarrhea, No constipation Physical Exam Date Time Temp Pulse Resp B/P (MAP) Pulse Ox O2 Delivery O2 Flow Rate FiO2 10/05/17 07:57 36.5 73 20 143/77 (99) 95 Room Air 10/05/17 07:45 Room Air 10/05/17 04:00 36.5 84 18 114/68 (83) 96 Room Air 10/05/17 04:00 Room Air 10/05/17 00:00 Room Air 10/04/17 20:00 93 Room Air CPAP 10/04/17 20:00 36.9 74 28 147/77 (100) 93 Room Air 10/04/17 18:41 94 Room Air 10/04/17 18:31 82 16 147/62 94 Room Air 10/04/17 17:10 98 Room Air 10/04/17 17:07 90 10/04/17 16:50 36.5 84 18 147/67 94 Room Air General Appearance: no apparent distress Eyes: PERRL ENT: hearing grossly normal Neck: supple Respiratory/Chest: lungs clear, normal breath sounds Cardiovascular: regular rate, rhythm, no JVD, no murmur Abdomen: normal bowel sounds, non tender, soft Neurologic/Psych: alert, normal mood/affect, oriented x 3 Skin: normal color, no jaundice Laboratory Results Last 24 Hours Test 10/04/17 17:22 10/04/17 20:35 10/04/17 20:43 10/04/17 22:00 White Blood Count 7.83 K/uL Red Blood Count 4.36 M/uL Hemoglobin 13.8 g/dL 12.7 g/dL Hematocrit 41.4 % 38.6 % Mean Corpuscular Volume 95.0 fL Mean Corpuscular Hemoglobin 31.7 pg Mean Corpuscular Hemoglobin Concent 33.3 g/dl Platelet Count 229 K/uL Mean Platelet Volume 10.2 fL Neutrophils (%) (Auto) 70.4 % Lymphocytes (%) (Auto) 18.9 % Monocytes (%) (Auto) 8.6 % Eosinophils (%) (Auto) 1.7 % Basophils (%) (Auto) 0.3 % Neutrophils # (Auto) 5.52 K/uL Lymphocytes # (Auto) 1.48 K/uL Monocytes # (Auto) 0.67 K/uL Eosinophils # (Auto) 0.13 K/uL Basophils # (Auto) 0.02 K/uL RDW Standard Deviation 47.4 fL RDW Coefficient of Variation 13.8 % Immature Granulocyte % (Auto) 0.1 % Immature Granulocyte # (Auto) 0.01 K/uL Prothrombin Time 12.7 SECONDS Prothromb Time International Ratio 1.2 Activated Partial Thromboplast Time 33.3 SECONDS Partial Thromboplastin Ratio 1.3 Sodium Level 134 mmol/L Potassium Level 4.2 mmol/L Chloride Level 101 mmol/L Carbon Dioxide Level 30 mmol/L Anion Gap 3.0 mmol/L Blood Urea Nitrogen 18 mg/dl Creatinine 1.42 mg/dl Est Creatinine Clear Calc Drug Dose 52.7 ml/min Estimated GFR () 52.6 Estimated GFR (Non- 45.4 BUN/Creatinine Ratio 12.7 Random Glucose 235 mg/dl Calcium Level 8.6 mg/dl Total Bilirubin 0.2 mg/dl Direct Bilirubin < 0.1 mg/dl Aspartate Amino Transf (AST/SGOT) 28 U/L Alanine Aminotransferase (ALT/SGPT) 27 U/L Alkaline Phosphatase 77 U/L Total Protein 7.0 gm/dl Albumin 2.9 gm/dl Lipase 79 U/L Bedside Glucose 173 mg/dl Urine Color YELLOW Urine Appearance CLOUDY Urine pH 7.5 Urine Specific [place] 1.019 Urine Protein NEG Urine Glucose (UA) NEG Urine Ketones NEG Urine Occult Blood NEG Urine Nitrite NEG Urine Bilirubin NEG Urine Urobilinogen NEG Urine Leukocyte Esterase NEG Urine WBC (Auto) 5-10 /hpf Urine RBC (Auto) 0-4 /hpf Urine Hyaline Casts (Auto) 1-5 /lpf Urine Epithelial Cells (Auto) >30 /lpf Urine Bacteria (Auto) 1+ Urine Crystals TRIPLE PHOSPHATE Urine Yeast (Auto) Test 10/04/17 23:57 10/05/17 00:02 10/05/17 04:07 10/05/17 04:11 Hemoglobin 12.5 g/dL 13.2 g/dL Hematocrit 37.9 % 39.7 % Bedside Glucose 177 mg/dl 93 mg/dl White Blood Count 6.49 K/uL Red Blood Count 4.15 M/uL Mean Corpuscular Volume 95.7 fL Mean Corpuscular Hemoglobin 31.8 pg Mean Corpuscular Hemoglobin Concent 33.2 g/dl RDW Standard Deviation 47.4 fL RDW Coefficient of Variation 13.7 % Platelet Count 220 K/uL Mean Platelet Volume 10.1 fL Prothrombin Time 11.6 SECONDS Prothromb Time International Ratio 1.1 Sodium Level 139 mmol/L Potassium Level 4.3 mmol/L Chloride Level 103 mmol/L Carbon Dioxide Level 32 mmol/L Anion Gap 4.0 mmol/L Blood Urea Nitrogen 15 mg/dl Creatinine 1.22 mg/dl Est Creatinine Clear Calc Drug Dose 60.6 ml/min Estimated GFR () 63.2 Estimated GFR (Non- 54.5 BUN/Creatinine Ratio 12.3 Random Glucose 101 mg/dl Estimated Average Glucose 200 mg/dl Hemoglobin A1c 8.6 % Calcium Level 8.3 mg/dl Test 10/05/17 07:45 10/05/17 08:01 Bedside Glucose 99 mg/dl Hemoglobin 14.0 g/dL Hematocrit 41.5 % Impression Patient is a 82 year old male w/ afib on ASA, Xarelto, Hx of Prostate CA s/p radiation who presented through the ED from [facility] for evaluation of rectal bleeding 2 days. He notes resolution of his rectal bleeding now, with a semi-formed brown stool last evening w/o any recurrence of bleeding. He notes no melena, abd pain, nausea, vomiting. His H&H is stable, and has improved since admission. 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 VSS. Differentials radiation proctitis, hemorrhoidal bleed, diverticular bleed. Plan - No role for PPI, ok to resume home dosing of PPI - Trend H&H - Monitor stools - Transfuse PRN - Can resume ASA - Hold Xarelto - Will discuss repeat colonoscopy w/ attending, will start pt on clear liquid diet for now - Call with questions, concerns. I performed a history and physical examination of the patient, I have discussed the patient's management with Samantha. Please refer to the BEAUTY CULTURIST APPRENTICE's note for the documented findings and plan of care. 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 Will arrange for colonoscopy tomorrow with possible APC.
--- NOTE | 2017-10-05 11:41 | CARDIOLOGY CONSULTATION REPORT ---
DATE OF CONSULTATION: 10/05/2017 REASON FOR CONSULTATION: 1. Paroxysmal atrial fibrillation/atrial flutter. 2. CHADS-VASc score = 4. 3. GI bleeding. HISTORY OF PRESENT ILLNESS: Mr. Byers is an 82-year-old white male with a history of paroxysmal atrial fibrillation, paroxysmal atrial flutter (on chronic Xarelto), hypertension, dyslipidemia, insulin requiring type 2 diabetes mellitus, obstructive sleep apnea, poor memory, urinary incontinence, and a history of colonic angiodysplasia status post GI bleed in January 2017 (which required transfusion), who was admitted on 10/04/2017 following bright red rectal bleeding x2 episodes. Fortunately, the patient has not had a significant drop in his blood count. Xarelto is currently being held. The patient offers no complaints at the present time. He specifically denied any chest pain, heaviness, tightness, pressure, or chest discomfort. Denies any neck, jaw, back, or arm pain. Denies any shortness of breath, unusual dyspnea on exertion or any recent changes in exertional tolerance. He denies any palpitations, tachypalpitations, syncope or near syncope. Historically, the patient is not symptomatic with his atrial fibrillation or atrial flutter despite relatively fast rates. The patient wore an event recorder back in 2013 through the early part of 2014. He had frequent episodes of paroxysmal atrial fibrillation and flutter, mostly on a daily basis average 5%-7% of the time. Heart rate was up into the 140s at times. He was initially started on Xarelto 20 mg daily on 12/08/2014. Xarelto was held in January 2017 following his GI bleed and was subsequently restarted. The patient has not had any signs or symptoms of stroke or mini stroke. He did have a brief run of atrial fibrillation while on telemetry monitoring overnight at a rate of approximately 130 beats per minute. MEDICATIONS: 1. Nortriptyline 20 mg at bedtime. 2. Lantus 12 units subcutaneous injection b.i.d. 3. Tiazac CD 240 mg daily. 4. Prozac 10 mg daily. 5. Zantac 150 mg each morning. 6. Toprol XL 150 mg each morning. 7. Crestor 40 mg daily. 8. NovoLog sliding scale insulin. 9. IV Protonix. 10. Colace 100 mg b.i.d. 11. Feosol 325 mg b.i.d. 12. Normal saline at 80 mL per hour. 13. Combivent Respimat 1 puff p.o. q. 6 hours p.r.n. 14. Tylenol p.r.n. 15. Milk of magnesia p.r.n. 16. Zofran p.r.n. ALLERGIES: 1. CEFUROXIME. 2. METFORMIN. PAST MEDICAL HISTORY: 1. Paroxysmal atrial fibrillation/atrial flutter. 2. Chronic lower extremity edema. 3. 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 4. COPD. 5. Depression. 6. GERD. 7. Hemorrhoids. 8. Hyperlipidemia. 9. Hypertension. 10. History of colonic angiodysplasia. 11. History of major GI bleed January 2017. 12. Urinary incontinence. 13. History of tremor. 14. History of vitamin B12 deficiency. 15. Prostate cancer, status post surgery and radiation treatment. 16. Memory disorder. 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 He is . He is a lifelong nonsmoker. FAMILY HISTORY: Significant for diabetes mellitus, kidney disease, and cancer. PHYSICAL EXAMINATION: VITAL SIGNS: Temperature is 36.5 degrees Celsius, pulse is 72 and regular, respiratory rate 14 and unlabored, and blood pressure is 143/77. SpO2 is 95% on room air. GENERAL: The patient is in no acute distress. He is sitting up in a bedside chair. HEENT: Head is atraumatic and normocephalic. EOMs intact. Sclerae are anicteric. Face is symmetric. No perioral cyanosis. NECK: Without thyromegaly, adenopathy, or JVD. Carotid upstrokes +2 bilaterally without obvious bruits. CHEST AND LUNGS: With mildly diminished breath sounds, otherwise clear. No wheezes, rales or rhonchi. CARDIOVASCULAR SYSTEM: S1 and S2 are regular, distant, without obvious murmur, gallop, or rub. PMI is nondisplaced. No lifts, heaves, or thrills. No abdominal, aortic, or renal bruits. ABDOMEN: Bowel sounds present. No masses, organomegaly, or tenderness. EXTREMITIES: With +1 pretibial edema bilaterally. Bandage in place over the left pretibial surface. NEUROLOGIC: The patient is awake and interactive. Pleasant and cooperative. Answers questions appropriately. Difficulty with recall. Gait pattern not assessed. LABORATORY DATA: Hemoglobin 14.0 g/dL and hematocrit 41.5%. Sodium is 139 mmol/L, potassium 4.3 mmol/L, BUN is 15 mg/dL, and creatinine 1.22 mg/dL. Hemoglobin A1c is elevated at 8.6%. EKG on admission shows a sinus rhythm with PACs and lateral T wave inversion. Telemetry overnight shows predominantly normal sinus rhythm with an episode of atrial fibrillation at a rate of approximately 130 beats per minute. ASSESSMENT: 1. Paroxysmal atrial fibrillation/paroxysmal atrial flutter, on chronic Coumadin. 2. Recurrent gastrointestinal bleeding (this is a non-significant gastrointestinal bleed). 3. History of colonic angiodysplasia. 4. Type 2 diabetes mellitus. 5. Hypertension. 6. Dyslipidemia. 7. Elevated CHADS-VASc score. 8. Gastroesophageal reflux disease. 9. Obstructive sleep apnea. 10. Chronic obstructive pulmonary disease. 11. Diagnoses as mentioned above. PLAN: 1. Discussed with Dr. Bhakta, who will also meet with the patient. 2. Recommend beginning Amiodarone 200 mg b.i.d. for 3-4 weeks and then reduce dose to 200 mg daily. 3. Consider implantable loop recorder at some point, so we can determine his atrial dysrhythmia burden while on an antiarrhythmic medication. 4. We will continue holding Xarelto for the time being. 5. Continue Toprol XL 150 mg daily. We may need to adjust this dosage after Amiodarone is on board. 6. Continue Diltiazem CD 240 mg daily. 7. We will continue to follow Patient seen and examined. Agree with above. Nirmal Bhakta MD [facility]
[2017-10-05] MEDS ORDERED: INSULIN GLARGINE SOLOSTAR 100 UNITS/ML 3 ML PEN SC SCH ×2 (16:45)
[2017-10-05] MEDS ORDERED: LAVAGE SOLUTION 4000ML PO SCH (17:00)
--- NOTE | 2017-10-05 19:53 | Progress Note ---
Medicine Progress Note Date & Time of Visit: Oct 05, 2017 at 19:42. Subjective Patient denies any complaints but it overall depressed about events in his life that have occurred recently. Denies any CP, SOB, palpitations, dizziness, or lightheadedness. No overnight events noted. Denies any additional complaints. Objective Last 8 Hrs Date Time Temp Pulse Resp B/P (MAP) Pulse Ox O2 Delivery O2 Flow Rate FiO2 10/05/17 16:00 98 Room Air 10/05/17 15:32 36.8 70 20 111/59 (76) 98 10/05/17 12:30 Room Air Physical Exam: GENERAL: Patient is in no acute distress. HEENT: No acute trauma, normocephalic, mucous membranes moist, no nasal congestion, no scleral icterus. NECK: No stridor, trachea is midline. LUNGS: Clear to auscultation bilaterally, no wheeze, no rhonchi, breath sounds equal. HEART: Without murmurs gallops or rubs, irregularly irregular ABDOMEN: Soft, nontender, bowel sounds positive EXTREMITIES: No cyanosis or edema NEUROLOGIC: Oriented x 3, no acute motor or sensory deficits, no focal weakness. SKIN: No rash, no jaundice, no diaphoresis. Laboratory Results: Last 24 Hours Test 10/04/17 20:35 10/04/17 20:43 10/04/17 22:00 10/04/17 23:57 Bedside Glucose 173 mg/dl Hemoglobin 12.7 g/dL 12.5 g/dL Hematocrit 38.6 % 37.9 % Urine Color YELLOW Urine Appearance CLOUDY Urine pH 7.5 Urine Specific [place] 1.019 Urine Protein NEG Urine Glucose (UA) NEG Urine Ketones NEG Urine Occult Blood NEG Urine Nitrite NEG Urine Bilirubin NEG Urine Urobilinogen NEG Urine Leukocyte Esterase NEG Urine WBC (Auto) 5-10 /hpf Urine RBC (Auto) 0-4 /hpf Urine Hyaline Casts (Auto) 1-5 /lpf Urine Epithelial Cells (Auto) >30 /lpf Urine Bacteria (Auto) 1+ Urine Crystals TRIPLE PHOSPHATE Urine Yeast (Auto) Test 10/05/17 00:02 10/05/17 04:07 10/05/17 04:11 10/05/17 07:45 Bedside Glucose 177 mg/dl 93 mg/dl 99 mg/dl White Blood Count 6.49 K/uL Red Blood Count 4.15 M/uL Hemoglobin 13.2 g/dL Hematocrit 39.7 % Mean Corpuscular Volume 95.7 fL Mean Corpuscular Hemoglobin 31.8 pg Mean Corpuscular Hemoglobin Concent 33.2 g/dl RDW Standard Deviation 47.4 fL RDW Coefficient of Variation 13.7 % Platelet Count 220 K/uL Mean Platelet Volume 10.1 fL Prothrombin Time 11.6 SECONDS Prothromb Time International Ratio 1.1 Sodium Level 139 mmol/L Potassium Level 4.3 mmol/L Chloride Level 103 mmol/L Carbon Dioxide Level 32 mmol/L Anion Gap 4.0 mmol/L Blood Urea Nitrogen 15 mg/dl Creatinine 1.22 mg/dl Est Creatinine Clear Calc Drug Dose 60.6 ml/min Estimated GFR () 63.2 Estimated GFR (Non- 54.5 BUN/Creatinine Ratio 12.3 Random Glucose 101 mg/dl Estimated Average Glucose 200 mg/dl Hemoglobin A1c 8.6 % Calcium Level 8.3 mg/dl Test 10/05/17 08:01 10/05/17 11:59 10/05/17 15:51 Hemoglobin 14.0 g/dL Hematocrit 41.5 % Bedside Glucose 127 mg/dl 120 mg/dl Assessment & Plan RECTAL BLEEDING: -patient presents with bright red blood per rectum -last colonoscopy in January 2017 - showed a non-bleeding colonic angiodysplasia, Xarelto was stopped at that time and restarted later as an outpatient -continue to hold Xarelto and aspirin for now -Hb has remained fairly stable at 13.2-14 today -monitor in tele -GI consulted, planning for colonoscopy tomorrow, bowel prep ordered -PPI changed to PO per GI -continue ferrous sulfate ATRIAL FIBRILLATION: -remains in A. Fib with rate control -continued on Cardizem and Metoprolol -continued to hold Xarelto -Cardio consulted, appreciate recommendations, have started amiodarone DM TYPE II: -on high dose Lantus at home + sliding scale -Glycemic pharmacy consulted, appreciate recs -on a clear liquid diet, and NPO after midnight -monitor BSGs closely -HbA1c 8.6% BJ: -CPAP qHS COPD: -not in exacerbation HYPERLIPIDEMIA: -continue statin GUTIERREZ WOUND: -secondary to trauma a few weeks back -wound care consulted regarding non-healing open wound Current Inpatient Medications: Current Inpatient Medications Medications (Trade) Dose Ordered Sig/Melany Route Start Time Stop Time Status Last Admin Dose Admin Diltiazem HCl (TIAzac CAP) 240 mg DAILY PO 10/05/17 09:00 11/04/17 08:59 10/05/17 07:59 240 MG Docusate Sodium (coLACE CAP) 100 mg BID PO 10/04/17 21:00 11/03/17 20:59 10/05/17 07:59 100 MG Ferrous Sulfate (Feosol Tab) 325 mg BID PO 10/04/17 21:00 11/03/17 20:59 10/05/17 07:59 325 MG Fluoxetine HCl (Prozac Cap) 10 mg DAILY PO 10/05/17 09:00 11/04/17 08:59 10/05/17 07:59 10 MG Albuterol/ Ipratropium (Combivent Respimat Inh) 1 puffs Q6H PRN INH 10/04/17 18:45 11/03/17 18:44 Nortriptyline HCl (Pamelor Cap) 20 mg HS PO 10/05/17 21:00 11/04/17 20:59 Ranitidine HCl (zANTac TAB) 150 mg QAM PO 10/05/17 09:00 11/04/17 08:59 10/05/17 07:59 150 MG Metoprolol Succinate (Toprol Xl Tab) 150 mg QAM PO 10/05/17 09:00 11/04/17 08:59 10/05/17 07:59 150 MG Rosuvastatin Calcium (Crestor Tab) 40 mg QAM PO 10/05/17 09:00 11/04/17 08:59 10/05/17 07:59 40 MG Sodium Chloride 1,000 ml @ 80 mls/hr [id number] IV 10/04/17 20:30 11/03/17 20:29 10/05/17 09:15 80 MLS/HR Acetaminophen (Tylenol Tab) 650 mg Q4H PRN PO 10/04/17 18:45 11/03/17 18:44 Magnesium Hydroxide (Milk Of Magnesia Susp) 30 ml Q12H PRN PO 10/04/17 18:45 11/03/17 18:44 Ondansetron HCl (Zofran Inj) 4 mg Q6H PRN IV 10/04/17 18:45 11/03/17 18:44 Insulin Aspart (novoLOG ASPART) SLIDING SCALE If C... ACHS SC 10/04/17 21:00 11/03/17 20:59 10/05/17 18:26 10 UNITS Glucose (Glucose 40% Gel) 15-30 GRAMS 15 GRAMS... UD PRN PO 10/04/17 18:45 11/03/17 18:44 Glucose (Glucose Chew Tab) 4-8 Tablets 4 Tabl... UD PRN PO 10/04/17 18:45 11/03/17 18:44 Dextrose (Dextrose 50% 50ML Syringe) 25-50ML OF 50% DW IV FOR... UD PRN IV 10/04/17 18:45 11/03/17 18:44 Glucagon (Glucagon Inj) 1 mg UD PRN SQ 10/04/17 18:45 11/03/17 18:44 Miscellaneous Information (Consult Glycemic Management Pharmacy) 1 ea UD N/A 10/04/17 19:52 11/03/17 19:51 Pantoprazole Sodium 40 mg/ Dextrose 100 ml @ 20 mls/hr Q5H IV 10/04/17 23:00 11/03/17 22:59 10/05/17 19:30 20 MLS/HR Insulin Aspart (novoLOG ASPART) SLIDING SCALE If C... TODAY@0000,0400 MT 10/05/17 00:00 11/04/17 00:00 Amiodarone HCl (Cordarone Tab) 200 mg BID PO 10/05/17 21:00 11/04/17 20:59 Insulin Glargine (Lantus Solostar Pen) 22 units BID SC 10/05/17 16:45 11/04/17 16:44 10/05/17 18:26 22 UNITS Polyethylene Glycol/ Electrolytes (Golytely Soln) 16 dose TODAY@1700 PO 10/05/17 17:00 10/05/17 23:59 10/05/17 16:51 16 DOSE
[2017-10-05] MEDS: NORTRIPTYLINE HCL 10 MG CAP PO SCH (21:17)
[2017-10-05] MEDS: AMIODARONE 200 MG TAB PO SCH (21:43)
[2017-10-06] VITALS (10 sets, daily range): BP systolic 122–145; BP diastolic 69–88; PULSE 57–133; TEMP 36.4–36.8; O2SAT 90–93
[2017-10-06] MEDS: INSULIN ASPART 100 UNITS/ML 3 ML PEN SC SCH ×6 (04:00→21:25)
--- NOTE | 2017-10-06 06:27 | Clinical Documentation Query ---
CLINICAL DOCUMENTATION QUERY 82 year old male who presents to the Emergency Room with complaints of rectal bleeding. In order for coders to capture the BMI of 41, obesity must be documented by the provider in the patient record. In your clinical opinion is this patient being managed for: ( + ) Obesity ( ) Not Agree ( ) Other explanation of clinical findings (Please Explain) ( ) Unable to determine (Please Define) ( ) Need to Discuss The medical record reflects the following clinical findings, treatment, and risk factors. Clinical Indicators: BMI 41.4 Treatment: Weight, diet Risk Factors: Age, DM Please clarify and document your clinical opinion in the progress notes and discharge summary. Terms such as "probable", "suspected", "likely", "questionable", "possible", or "still to be ruled out" are acceptable. IF IN AGREEMENT, YOU MUST DOCUMENT ABOVE DIAGNOSTIC STATEMENT IN DAILY PROGRESS NOTES AND DISCHARGE SUMMARY. This document is not part of the patient's record. Thank You, Mecca Head RN [phone]
[2017-10-06 06:56] LABS: HEMATOCRIT 40.4 % (42-52); MEAN CELL VOLUME 94.6 fL (80-100); MEAN CORPUSCULAR HEMOGLOBIN 31.1 pg (25-34); MEAN CORPUSCULAR HGB CONC 32.9 g/dl (32-36); MEAN PLATELET VOLUME 10.5 fL (7.4-10.4); PLATELET COUNT 224 K/uL (130-400); RED BLOOD COUNT 4.27 M/uL (4.7-6.1); WHITE BLOOD COUNT 7.29 K/uL (4.8-10.8)
[2017-10-06 07:22] LABS: BUN/CREATININE RATIO 10.8 (10-20); CALCIUM 8.3 mg/dl (8.5-10.1); CREATININE 0.97 mg/dl (0.60-1.40); POTASSIUM 3.8 mmol/L (3.5-5.1)
[2017-10-06] MEDS ORDERED: SOD PHOSPHATE/SOD BIPHOSPHATE ENEMA 132 ML BTL PR STA (08:20)
[2017-10-06] MEDS ORDERED: SOD PHOSPHATE/SOD BIPHOSPHATE ENEMA 132 ML BTL ONE (08:25)
--- NOTE | 2017-10-06 08:52 | History & Physical Bridge Note ---
H&P Re-Evaluation Bridge Note: I have examined the patient, reviewed the History & Physical and in the interval since the performance of the History & Physical I have noted the following changes of clinical significance: No changes noted Stable for colonoscopy.
[2017-10-06] MEDS ORDERED: KETAMINE HCL INJ 50 MG/ML 10 ML VIAL ONE (08:55)
[2017-10-06] MEDS ORDERED: MIDAZOLAM HCL 1 MG/ML 2ML VIAL ONE (08:56)
[2017-10-06] MEDS ORDERED: SODIUM CHLORIDE 0.9% INJ 10 ML VIAL ONE (08:56)
[2017-10-06] MEDS ORDERED: SODIUM CHLORIDE 0.9% 500ML 500 ML IV ONE (09:00)
--- NOTE | 2017-10-06 09:13 | Clinical Documentation Query ---
CLINICAL DOCUMENTATION QUERY 82 year old male who presents to the Emergency Room with complaints of rectal bleeding. In order for coders to capture the BMI of 41, obesity must be documented by the provider in the patient record. In your clinical opinion is this patient being managed for: ( X ) Obesity ( ) Not Agree ( ) Other explanation of clinical findings (Please Explain) ( ) Unable to determine (Please Define) ( ) Need to Discuss The medical record reflects the following clinical findings, treatment, and risk factors. Clinical Indicators: BMI 41.4 Treatment: Weight, diet Risk Factors: Age, DM Please clarify and document your clinical opinion in the progress notes and discharge summary. Terms such as "probable", "suspected", "likely", "questionable", "possible", or "still to be ruled out" are acceptable. IF IN AGREEMENT, YOU MUST DOCUMENT ABOVE DIAGNOSTIC STATEMENT IN DAILY PROGRESS NOTES AND DISCHARGE SUMMARY. This document is not part of the patient's record. Thank You, Mecca Head RN [phone]
[2017-10-06] MEDS ORDERED: PROPOFOL IV EMULSION 10 MG/ML 20 ML VIAL IV ONE (09:19)
[2017-10-06] MEDS ORDERED: LIDOCAINE HCL 2% 2 ML VIAL (20MG/ML) ONE (09:19)
[2017-10-06] MEDS ORDERED: ESMOLOL HCL 10 MG/ML 10 ML VIAL ONE (09:30)
[2017-10-06] MEDS ORDERED: METOPROLOL TARTRATE 1 MG/ML VIAL ONE (09:30)
--- NOTE | 2017-10-06 09:58 | GI REPORT ---
Procedure Date: 10/06/2017 9:05 AM Procedure: Colonoscopy Indications: Rectal bleeding Medicines: Monitored Anesthesia Care Complications: No immediate complications. Estimated Blood Loss: Estimated blood loss: none. Procedure: Pre-Anesthesia Assessment: - Prior to the procedure, a History and Physical was performed, and patient medications and allergies were reviewed. The patient is competent. The risks and benefits of the procedure and the sedation options and risks were discussed with the patient. All questions were answered and informed consent was obtained. Patient identification and proposed procedure were verified by the physician and the nurse in the procedure room. Mental Status Examination: alert and oriented. Airway Examination: normal oropharyngeal airway and neck mobility. Respiratory Examination: clear to auscultation. CV Examination: normal. ASA Grade Assessment: III - A patient with severe systemic disease. After reviewing the risks and benefits, the patient was deemed in satisfactory condition to undergo the procedure. The anesthesia plan was to use monitored anesthesia care (MAC). Immediately prior to administration of medications, the patient was re-assessed for adequacy to receive sedatives. The heart rate, respiratory rate, oxygen saturations, blood pressure, adequacy of pulmonary ventilation, and response to care were monitored throughout the procedure. The physical status of the patient was re-assessed after the procedure. After I obtained informed consent, the scope was passed under direct vision. Throughout the procedure, the patient's blood pressure, pulse, and oxygen saturations were monitored continuously. The scope was introduced through the anus and advanced to the cecum, identified by appendiceal orifice and ileocecal valve. The colonoscopy was performed without difficulty. The patient tolerated the procedure well. The quality of the bowel preparation was good. The ileocecal valve, appendiceal orifice, and rectum were photographed. Scope insertion time was 3 minutes. Scope withdrawal time was 10 minutes. The total duration of the procedure was 15 minutes. Findings: The perianal and digital rectal examinations were normal. Two sessile polyps were found in the ascending colon and in the cecum. The polyps were 6 to 8 mm in size. These polyps were removed with a hot snare. Resection and retrieval were complete. Verification of patient identification for the specimen was done by the physician and nurse using the patient's name and date. Estimated blood loss: none. A benign-appearing, mild luminal narrowing measuring 8-10 cm (in length) between 10 - 20 cm from anal verge was found in the recto-sigmoid colon and was traversed with adult scope. This is probably related to prior pelvic radiation therapy. 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 Vaporization for hemostasis using argon plasma at 1.2 liters/minute and 30 lind was successful. Retroflexion in the rectum was not attempted due to rectal luminal narrowing. Impression: - Two 6 to 8 mm polyps in the ascending colon and in the cecum, removed with a hot snare. Resected and retrieved. 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 Treated with argon plasma coagulation (APC). Recommendation: - Return patient to [facility] for [facility] care. - Resume regular diet. - Sucralfate enema, 2gm twice daily for four weeks. - Continue present medications. - Await pathology results. - Repeat colonoscopy for surveillance based on pathology results. Martha Schneider MD 10/06/2017 9:58:17 AM This report has been signed electronically. Note Initiated On: 10/06/2017 9:05 AM I attest to the content of the Intraoperative Record and orders documented therein, exceptions below
--- NOTE | 2017-10-06 10:07 | Pharmacy Progress Note ---
Pharmacy Glycemic Short Note 2 Date of Service Oct 06, 2017. OUTPATIENT ANTIDIABETIC REGIMEN: * Lantus 56 units in AM + 90 units in PM * NovoLog per Sliding Scale * Total daily outpatient dose = 146+ units * A1c = 8.6% on 10/05/17 ASSESSMENT: Item Value Date Time Bedside Glucose 95 mg/dl 10/06/17 0725 Bedside Glucose 97 mg/dl 10/06/17 0407 Bedside Glucose 98 mg/dl 10/06/17 0040 Bedside Glucose 164 mg/dl H 10/05/17 2027 Bedside Glucose 120 mg/dl H 10/05/17 1551 Bedside Glucose 127 mg/dl H 10/05/17 1159 Bedside Glucose 99 mg/dl 10/05/17 0745 * 82yo T2DM male known to pharmacy from previous admissions/glycemic consults * Per past admissions, patient requires significantly less insulin for admission as compared to outpatient regimen, especially while on clears/NPO * AM fasting BSG is slightly below goal range per inpatient targets this morning at 95 mg/dl * Pt received 22 units of basal insulin yesterday -->Will empirically decrease dosing to prevent LOW * Pt NPO this morning for colonoscopy. Will hold dose this morning for procedure and give dose afterwards with lunch. * Per past admissions, current CF/CR worked well to control post-prandial hyperglycemia. * A1c = 8.6 % 10/05/17. Non-significant increase from last A1c of 8.3% in June. This is still in goal range for patient based on age/comorbidities PLAN FOR INPATIENT GLYCEMIC CONTROL: * Basal insulin: decrease dosing. * Lantus 15 units SQ daily. Will give dose this afternoon after procedure and PO intake resumed. * Bolus insulin: no change * NovoLog per scale ACHS or Q6hrs while NPO * Goal Range: Low 120 mg/dL - High 150 mg/dL * Correction Factor: 20 mg/dL/unit * Nutritional / Prandial insulin per carb ratio of 1 unit per 6 grams CHO consumed
--- NOTE | 2017-10-06 10:08 | Anesthesiology Progress Note ---
Anesthesia Post Op Note Date & Time Oct 06, 2017 at 10:08 Vital Signs Pain Intensity: 0.0 Vital Signs Past 12 Hours Date Time Temp Pulse Resp B/P (MAP) Pulse Ox O2 Delivery O2 Flow Rate FiO2 10/06/17 10:07 125 20 110/82 (91) 92 Room Air 10/06/17 09:52 126 20 105/70 (82) 97 Room Air 10/06/17 09:48 128 20 116/66 (83) 96 Mask 6 10/06/17 09:37 128 20 95/63 (74) 97 Mask 6 10/06/17 08:46 36.4 89 20 133/68 (89) 91 Room Air 10/06/17 07:45 Room Air 10/06/17 07:15 36.4 72 16 138/80 (99) 91 10/06/17 06:08 36.5 74 18 140/77 92 Room Air 10/06/17 04:00 Room Air 10/06/17 03:59 36.5 74 18 140/77 (98) 92 Room Air 10/06/17 00:00 Room Air 10/05/17 23:48 36.4 62 18 162/77 (105) 91 Room Air Notes Mental Status: alert / awake / arousable, participated in evaluation Pt Amnestic to Procedure: Yes Nausea / Vomiting: adequately controlled Pain: adequately controlled Airway Patency, RR, SpO2: stable & adequate BP & HR: stable & adequate Hydration State: stable & adequate Anesthetic Complications: no major complications apparent
[2017-10-06] MEDS: FLUOXETINE HCL 10 MG CAP PO SCH (10:42)
[2017-10-06] MEDS: AMIODARONE 200 MG TAB PO SCH ×2 (10:42→21:00)
[2017-10-06] MEDS: ROSUVASTATIN CALCIUM 20 MG TAB PO SCH (10:42)
[2017-10-06] MEDS: RANITIDINE HCL 150 MG TAB PO SCH (10:42)
[2017-10-06] MEDS: PANTOprazole SOD 40 MG TAB PO SCH (10:42)
[2017-10-06] MEDS: DOCUSATE SODIUM 100 MG CAP PO SCH ×2 (10:42→21:17)
[2017-10-06] MEDS: METOPROLOL SUCC 50MG EXT REL TAB PO SCH (10:42)
[2017-10-06] MEDS: DILTIAZEM HCL 120 MG EXT REL CAP PO SCH (10:42)
[2017-10-06] MEDS: FERROUS SULFATE 325 MG TAB PO SCH ×2 (10:42→21:17)
[2017-10-06] MEDS: SODIUM CHLORIDE 0.9% 1000ML 1,000 ML IV SCH ×2 (10:43→21:15)
[2017-10-06] MEDS ORDERED: INSULIN GLARGINE SOLOSTAR 100 UNITS/ML 3 ML PEN SC SCH (12:00)
--- NOTE | 2017-10-06 16:20 | Progress Note ---
Internal Med Progress Note Date of Service: Oct 06, 2017. Provider Documentation: SUBJECTIVE: The patient was seen and examined S/P Colonoscopy Denies any symptoms OBJECTIVE: Vital Signs-as noted below Exam: General-No distress at rest Eyes-normal ENT-normal Neck-supple Lungs-Clear to ausucltate bilaterally Heart-Regular,no murmur appreciated Abdomen-Benign,no masses,bowel sound present Extremities-NO edema Neuro-AAOx3 Lab data as noted below. 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 Fib with rate control -continued on Cardizem and Metoprolol -continued to hold Xarelto for now -Cardio consulted, appreciate recommendations, have started amiodarone -will discuss with the will call order clerk regarding putting back on Xarelto DM TYPE II: -on high dose Lantus at home + sliding scale -Glycemic pharmacy consulted, appreciate recs -monitor BSGs closely -HbA1c 8.6% -Blood sugar remains stable Obesity Advised weight reduction through Diet and Exercise BJ: -CPAP qHS COPD: -not in exacerbation HYPERLIPIDEMIA: -continue statin GUTIERREZ WOUND: -secondary to trauma a few weeks back -wound care consulted regarding non-healing open wound Disposition Likely discharge tomorrow Vital Signs: Date Time Temp Pulse Resp B/P (MAP) Pulse Ox O2 Delivery O2 Flow Rate FiO2 10/06/17 15:33 36.4 57 20 122/71 (88) 92 10/06/17 12:30 Room Air 10/06/17 11:18 36.4 133 16 137/88 (104) 91 Room Air 10/06/17 10:39 36.5 67 18 134/69 (90) 92 Room Air 10/06/17 10:22 98 20 139/76 (97) 98 Room Air 10/06/17 10:07 125 20 110/82 (91) 92 Room Air 10/06/17 09:52 126 20 105/70 (82) 97 Room Air 10/06/17 09:48 128 20 116/66 (83) 96 Mask 6 10/06/17 09:37 128 20 95/63 (74) 97 Mask 6 10/06/17 08:46 36.4 89 20 133/68 (89) 91 Room Air 10/06/17 07:45 Room Air 10/06/17 07:15 36.4 72 16 138/80 (99) 91 10/06/17 06:08 36.5 74 18 140/77 92 Room Air 10/06/17 04:00 Room Air 10/06/17 03:59 36.5 74 18 140/77 (98) 92 Room Air 10/06/17 00:00 Room Air 10/05/17 23:48 36.4 62 18 162/77 (105) 91 Room Air 10/05/17 20:00 92 Room Air 10/05/17 19:52 36.3 54 20 122/69 (86) 92 Lab Results: Results Past 24 Hours Test 10/05/17 20:27 10/06/17 00:40 10/06/17 04:07 10/06/17 05:45 Range/Units Bedside Glucose 164 98 97 70-99 mg/dl White Blood Count 7.29 4.8-10.8 K/uL Red Blood Count 4.27 4.7-6.1 M/uL Hemoglobin 13.3 14.0-18.0 g/dL Hematocrit 40.4 42-52 % Mean Corpuscular Volume 94.6 80-100 fL Mean Corpuscular Hemoglobin 31.1 25-34 pg Mean Corpuscular Hemoglobin Concent 32.9 32-36 g/dl RDW Standard Deviation 47.3 36.4-46.3 fL RDW Coefficient of Variation 13.8 11.5-14.5 % Platelet Count 224 130-400 K/uL Mean Platelet Volume 10.5 7.4-10.4 fL Sodium Level 139 136-145 mmol/L Potassium Level 3.8 3.5-5.1 mmol/L Chloride Level 105 98-107 mmol/L Carbon Dioxide Level 28 21-32 mmol/L Anion Gap 6.0 3-11 mmol/L Blood Urea Nitrogen 10 7-18 mg/dl Creatinine 0.97 0.60-1.40 mg/dl Est Creatinine Clear Calc Drug Dose 73.4 ml/min Estimated GFR () 83.3 Estimated GFR (Non- 71.9 BUN/Creatinine Ratio 10.8 10-20 Random Glucose 101 70-99 mg/dl Calcium Level 8.3 8.5-10.1 mg/dl Test 10/06/17 07:25 10/06/17 11:24 Range/Units Bedside Glucose 95 122 70-99 mg/dl
[2017-10-06] MEDS: NORTRIPTYLINE HCL 10 MG CAP PO SCH (21:17)
[2017-10-07 04:04] VITALS: BP 119/67; PULSE 79; TEMP 36.9; O2SAT 92
[2017-10-07 06:46] VITALS: BP 147/76; PULSE 79; TEMP 37; O2SAT 92
[2017-10-07 06:47] LABS: HEMATOCRIT 40.6 % (42-52); MEAN CORPUSCULAR HEMOGLOBIN 31.4 pg (25-34); MEAN CORPUSCULAR HGB CONC 32.8 g/dl (32-36); PLATELET COUNT 214 K/uL (130-400); RED BLOOD COUNT 4.23 M/uL (4.7-6.1); WHITE BLOOD COUNT 9.13 K/uL (4.8-10.8)
[2017-10-07 07:21] LABS: BUN/CREATININE RATIO 9.7 (10-20); CREATININE 1.1 mg/dl (0.60-1.40); POTASSIUM 3.9 mmol/L (3.5-5.1)
[2017-10-07] MEDS: AMIODARONE 200 MG TAB PO SCH (08:16)
[2017-10-07] MEDS: FERROUS SULFATE 325 MG TAB PO SCH (08:16)
[2017-10-07] MEDS: METOPROLOL SUCC 50MG EXT REL TAB PO SCH (08:16)
[2017-10-07] MEDS: DILTIAZEM HCL 120 MG EXT REL CAP PO SCH (08:16)
[2017-10-07] MEDS: FLUOXETINE HCL 10 MG CAP PO SCH (08:16)
[2017-10-07] MEDS: ROSUVASTATIN CALCIUM 20 MG TAB PO SCH (08:16)
[2017-10-07] MEDS: DOCUSATE SODIUM 100 MG CAP PO SCH (08:16)
[2017-10-07] MEDS: PANTOprazole SOD 40 MG TAB PO SCH (08:16)
[2017-10-07] MEDS: RANITIDINE HCL 150 MG TAB PO SCH (08:16)
[2017-10-07] MEDS: INSULIN ASPART 100 UNITS/ML 3 ML PEN SC SCH ×2 (08:19→11:57)
[2017-10-07] MEDS ORDERED: INSULIN GLARGINE SOLOSTAR 100 UNITS/ML 3 ML PEN SC SCH (09:00)
[2017-10-07] MEDS ORDERED: HYDROCORTISONE ENEMA PR SCH (09:00)
--- NOTE | 2017-10-07 10:00 | Cardiology Follow-Up ---
Subjective Date of Service: Oct 07, 2017. Pt evaluation today including: conversation w/ patient, physical exam, lab review, review of studies, review of inpatient medication list (patient feels well today) History of Present Illness Patient feels well today, no cardiovascular complaints. He tells me that he was aware of being in atrial fibrillation yesterday morning and aware of converting to normal rhythm last evening. He reports no further bleeding, he is tolerating amiodarone well. Social History Smoking Status: Never Smoker History of Alcohol Use: No Review of Systems Respiratory: No cough, No shortness of breath Cardiac: No chest pain, No edema Medications Cardiovascular: Item Value Date Time Rosuvastatin 40 mg 10/06/17 0900 Calcium QAM/PO 10/07/17 0816 (Crestor Tab) Amiodarone HCl 200 mg 10/05/17 2100 (Cordarone Tab) BID/PO 10/07/17 0816 Diltiazem HCl 240 mg 10/05/17 0900 (TIAzac CAP) DAILY/PO 10/07/17 0816 Metoprolol 150 mg 10/05/17 0900 Succinate QAM/PO 10/07/17 0816 (Toprol Xl Tab) Objective Vital Signs Past 12 Hours Date Time Temp Pulse Resp B/P (MAP) Pulse Ox O2 Delivery O2 Flow Rate FiO2 10/07/17 07:45 Room Air 10/07/17 06:46 37.0 79 20 147/76 (99) 92 Room Air 10/07/17 04:04 36.9 79 18 119/67 (84) 92 Room Air 10/07/17 04:00 Room Air 10/07/17 00:00 Room Air 10/06/17 23:29 36.8 61 18 145/78 (100) 90 Room Air Last Recorded Weight-Kilograms: 108.100 Physical Exam Constitutional: Level of Distress: NAD Lungs: Auscultation: breath sounds normal Cardiovascular: Heart Auscultation: RRR Extremities: no edema Data Laboratory Results: Last 24 Hours Test 10/06/17 11:24 10/06/17 16:07 10/06/17 19:56 10/07/17 06:29 Bedside Glucose 122 mg/dl 155 mg/dl 190 mg/dl White Blood Count 9.13 K/uL Red Blood Count 4.23 M/uL Hemoglobin 13.3 g/dL Hematocrit 40.6 % Mean Corpuscular Volume 96.0 fL Mean Corpuscular Hemoglobin 31.4 pg Mean Corpuscular Hemoglobin Concent 32.8 g/dl RDW Standard Deviation 49.2 fL RDW Coefficient of Variation 14.1 % Platelet Count 214 K/uL Mean Platelet Volume 10.0 fL Sodium Level 138 mmol/L Potassium Level 3.9 mmol/L Chloride Level 106 mmol/L Carbon Dioxide Level 27 mmol/L Anion Gap 5.0 mmol/L Blood Urea Nitrogen 11 mg/dl Creatinine 1.10 mg/dl Est Creatinine Clear Calc Drug Dose 61.7 ml/min Estimated GFR () 71.6 Estimated GFR (Non- 61.8 BUN/Creatinine Ratio 9.7 Random Glucose 148 mg/dl Calcium Level 8.0 mg/dl Test 10/07/17 07:19 Bedside Glucose 149 mg/dl Telemetry reviewed: Patient went into atrial fibrillation at a relatively well- controlled heart rate before his colonoscopy yesterday, he was in it until around 9 PM last evening when he converted with a brief episode of postconversion bradycardia. He recalls feeling the arrhythmia. Assessment and Plan #1. Paroxysmal atrial fibrillation: He has some morphine 5 and 7% atrial fibrillation on monitoring, he does not recall long episodes and he feels that he is quite aware of it when he has it. As such he is at somewhat reduced risk of stroke as what would be predicted based on his chads score. At this point with a second GI bleed requiring hospitalization I think it would be most prudent to withhold anticoagulation and try an antiarrhythmic. He may have a slightly increased risk of stroke over being on an anticoagulant, and his risk on an anticoagulant seems quite high. If we want to be confident that we have his atrial fibrillation under control we can consider a loop recorder, there would not be any point doing that now as it will take some time for his amiodarone to become therapeutic. I would recommend discharging him on his current dose of amiodarone, his rate is well controlled during atrial fibrillation but he did have some post conversion slowing although was asymptomatic. This may become worse as the amiodarone builds up. For the moment however I would discharge him on his outpatient AV aranza medications. I will arrange follow-up in one month for his amiodarone and his arrhythmia. Thank you for allowing me to participate in his care.
[2017-10-07] MEDS: SODIUM CHLORIDE 0.9% 1000ML 1,000 ML IV SCH (11:11)
--- NOTE | 2017-10-07 11:22 | Progress Note ---
Internal Med Progress Note Date of Service: Oct 07, 2017. Provider Documentation: SUBJECTIVE: The patient was seen and examined S/P Colonoscopy Denies any symptoms following the scope No more bleeding Ready to be discharged today OBJECTIVE: Vital Signs-as noted below Exam: General-No distress at rest Eyes-normal ENT-normal Neck-supple Lungs-Clear to ausucltate bilaterally Heart-Regular,no murmur appreciated Abdomen-Benign,no masses,bowel sound present Extremities-NO edema Neuro-AAOx3 Lab data as noted below. Colonoscopy::: - Two 6 to 8 mm polyps in the ascending colon and in the cecum, removed with a hot snare. Resected and retrieved. 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 Treated with argon plasma coagulation (APC). 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 -will get PT/OT evaluation before discharge this afternoon -discharge on Carafate Enema 2gm BID for 2 weeks ATRIAL FIBRILLATION: -remains in A. Fib with rate control -continued on Cardizem and Metoprolol -continued to hold Xarelto for now -Cardio consulted, appreciate recommendations, have started amiodarone -Recommended to hold Xarelto for now and continue Amiodarone -Cardiology will call for appointment DM TYPE II: -on high dose Lantus at home + sliding scale -Glycemic pharmacy consulted, appreciate recs -monitor BSGs closely -HbA1c 8.6% -Blood sugar remains stable Obesity Advised weight reduction through Diet and Exercise BJ: -CPAP qHS COPD: -not in exacerbation HYPERLIPIDEMIA: -continue statin GUTIERREZ WOUND: -secondary to trauma a few weeks back -wound care consulted regarding non-healing open wound Disposition Likely discharge today Vital Signs: Date Time Temp Pulse Resp B/P (MAP) Pulse Ox O2 Delivery O2 Flow Rate FiO2 10/07/17 07:45 Room Air 10/07/17 06:46 37.0 79 20 147/76 (99) 92 Room Air 10/07/17 04:04 36.9 79 18 119/67 (84) 92 Room Air 10/07/17 04:00 Room Air 10/07/17 00:00 Room Air 10/06/17 23:29 36.8 61 18 145/78 (100) 90 Room Air 10/06/17 20:08 92 Room Air 10/06/17 19:45 36.4 63 20 131/72 (91) 93 10/06/17 16:03 92 Room Air 10/06/17 15:33 36.4 57 20 122/71 (88) 92 10/06/17 12:30 Room Air 10/06/17 11:18 36.4 133 16 137/88 (104) 91 Room Air Lab Results: Results Past 24 Hours Test 10/06/17 11:24 10/06/17 16:07 10/06/17 19:56 10/07/17 06:29 Range/Units Bedside Glucose 122 155 190 70-99 mg/dl White Blood Count 9.13 4.8-10.8 K/uL Red Blood Count 4.23 4.7-6.1 M/uL Hemoglobin 13.3 14.0-18.0 g/dL Hematocrit 40.6 42-52 % Mean Corpuscular Volume 96.0 80-100 fL Mean Corpuscular Hemoglobin 31.4 25-34 pg Mean Corpuscular Hemoglobin Concent 32.8 32-36 g/dl RDW Standard Deviation 49.2 36.4-46.3 fL RDW Coefficient of Variation 14.1 11.5-14.5 % Platelet Count 214 130-400 K/uL Mean Platelet Volume 10.0 7.4-10.4 fL Sodium Level 138 136-145 mmol/L Potassium Level 3.9 3.5-5.1 mmol/L Chloride Level 106 98-107 mmol/L Carbon Dioxide Level 27 21-32 mmol/L Anion Gap 5.0 3-11 mmol/L Blood Urea Nitrogen 11 7-18 mg/dl Creatinine 1.10 0.60-1.40 mg/dl Est Creatinine Clear Calc Drug Dose 61.7 ml/min Estimated GFR () 71.6 Estimated GFR (Non- 61.8 BUN/Creatinine Ratio 9.7 10-20 Random Glucose 148 70-99 mg/dl Calcium Level 8.0 8.5-10.1 mg/dl Test 10/07/17 07:19 Range/Units Bedside Glucose 149 70-99 mg/dl
[2017-10-07 11:35] VITALS: BP 144/78; PULSE 76; TEMP 36.9; O2SAT 91
[2017-10-07] MEDS ORDERED: CRD200 PO (15:05)
--- NOTE | 2017-10-07 15:08 | Discharge Instructions ---
Discharge Instructions Date of Service Oct 07, 2017. 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 Instructions / Follow-Up Instructions / Follow-Up Please make an appointment with your PCP in 1week.Follow up with [employer] in 3-4 weeks Current Hospital Diet Patient's current hospital diet: Diabetes Type 2 Diet Discharge Diet Recommended Diet: Diabetes Type 2 Diet (Insulin doses are reduced as per BSG.May need to increase ) Procedures Procedures Performed: POLYPECTOMY X 2, APC STARIGHT FIRE Pending Studies Studies pending at discharge: no Laboratory Results Hemoglobin A1c Test 10/05/17 04:11 Range/Units Estimated Average Glucose 200 mg/dl Hemoglobin A1c 8.6 H 4.5-5.6 % Medical Emergencies . Who to Call and When: Medical Emergencies: If at any time you feel your situation is an emergency, please call 911 immediately. . Non-Emergent Contact Non-Emergency issues call your: Primary Care Provider . Past History Medical & Surgical History: (1) GI bleeding (2) Renal insufficiency (3) HTN (hypertension) (4) Hypercholesteremia (5) Kidney stones (6) Afib (7) DM2 (diabetes mellitus, type 2) (8) Prostate CA (9) tumor removal- abdominal wall (10) Gross hematuria (11) History of partial colectomy (12) S/P tonsillectomy . "Provider Documentation" section prepared by David Barnes. . VTE Core Measure Inpt VTE Proph given/why not?: SCD's, Contraindicated
[2017-10-07 16:03] VITALS: BP 144/78; PULSE 76; TEMP 36.9; O2SAT 91
--- NOTE | 2017-10-08 08:19 | Discharge Summary ---
Discharge Summary Date of Service Oct 08, 2017. 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 Continued Medications: Acetaminophen (Tylenol) 325 Mg Tab 650 MG PO Q4H PRN for Pain or Fever, TAB MAXIMUM OF 3 GMS APAP/24 HOURS Cyanocobalamin (Vitamin B12) 1,000 Mcg Tab 1000 MG PO QAM Diltiazem Hcl Ext Rel (Tiazac) 240 Mg Capcr 240 MG PO DAILY, CAP Docusate Sodium (Colace) 100 Mg Cap 1 CAP PO BID, CAP Ferrous Sulfate (Ferrous Sulfate) 325 Mg Tab 325 MG PO BID Fluoxetine HCl (Fluoxetine HCl) 10 Mg Cap 10 MG PO DAILY Glipizide (Glucotrol) 10 Mg Tab 10 MG PO BID, TAB Glucosamine-Chondroitin (Osteo Bi-Flex Regular Str) 1 Tab Tab 1 TAB PO DAILY Insulin Aspart (Novolog Flexpen) 100 Units/Ml Inj 1 DOSE SC TID COVERAGE DIRECTED BY FOLLOWING SLIDING SCALE: 150-200 2 UNITS 201-240 4 UNITS 241-280 6 UNITS 281-330 8 UNITS 331-360 10 UNITS [phone] 12 UNITS 401-450 14 UNITS >450 15 UNITS AND CALL MD Insulin Glargine (Lantus) 100 Unit/Ml Inj 40 UNITS SC QPM Insulin Glargine (Lantus) 100 Unit/Ml Inj 25 UNITS SC QAM Ipratropium-Albuterol (Combivent Respimat) 1 Aer Aer 1 PUFF INH Q6H PRN for Shortness of Breath, INH Loperamide Hcl (Anti-Diarrheal) 2 Mg Cap 2 MG PO Q4H PRN for Diarrhea Metoprolol Succinate (Metoprolol Succinate ER) 100 Mg Tabcr 100 MG PO QAM tAKE ADDITIONAL 50MG TO MAKE IT 150MG EVERY MORNING Metoprolol Succinate (Toprol Xl) 50 Mg Tabcr 50 MG PO DAILY, TAB Nitroglycerin (Intra-Anal) (Rectiv) 0.4 % Oin 1 DOSE RE BID PRN for Pain Nortriptyline HCl (Nortriptyline HCl) 10 Mg Cap 20 MG PO HS Ondansetron Hcl (Zofran) 4 Mg Tab 4 MG PO Q8 PRN for Nausea or Vomiting, TAB Ranitidine (Zantac) 150 Mg Tab 150 MG PO QAM Rosuvastatin Calcium (Rosuvastatin Calcium) 40 Mg Tab 40 MG PO QAM Vitamin E (Vitamin E 400 Iu) 400 Unit Cap 400 INTER.UNIT PO DAILY, CAP Discontinued Medications: Hydrochlorothiazide (Hctz) 25 Mg Tab 25 MG PO DAILY, TAB Rivaroxaban (Xarelto) 20 Mg Tab 20 MG PO QAM, TAB Admission Information HPI (per Admitting provider): This is a 82 year old male with a PMH of atrial fibrillation on Xarelto, HTN, HLD, insulin dependent DM2, BJ on CPAP, hx. of prostate CA s/p radiation s/p surgery, recent hx. of LGIB in January 2017 - presented from [facility] with two episodes of bright red blood per rectum. He had a similar episode in January requiring blood transfusions - colonoscopy at that time showed non-bleeding colonic angiodysplasia. He had been on Xarelto, which was stopped in January. Sometime afterwards, the Xarelto had been restarted. Patient denies chest pain/ palpitations; denies fevers/chills, denies abdominal pain, denies constipation or diarrhea - he states he does get short of breath - was recently started on CPAP about a week ago due to sleep apnea. 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 Surgical Problems: (1) History of partial colectomy Status: Chronic (2) S/P tonsillectomy Status: Chronic Family History Cancer Diabetes mellitus Kidney disease Kidney stones Social History Smoking Status: Never Smoker Drug Use: none Marital Status: Housing status: lives alone Occupational Status: retired Immunizations History of Influenza Vaccine: N/A Influenza Vaccine Date: Jun 07, 2008 History of Tetanus Vaccine?: Yes History of Pneumococcal: Yes Pneumococcal Date: Jun 23, 2011 History of Hepatitis B Vaccine: No Allergies Coded Allergies: Cefuroxime (Verified Allergy, Unknown, Unknown, 02/06/17) Metformin (Verified Allergy, Unknown, Unknown, 02/06/17) Home Medications Scheduled Cyanocobalamin (Vitamin B12), 1,000 MG PO QAM Diltiazem Hcl Ext Rel (Tiazac), 240 MG PO DAILY Docusate Sodium (Colace), 1 CAP PO BID Ferrous Sulfate (Ferrous Sulfate), 325 MG PO BID Fluoxetine HCl (Fluoxetine HCl), 10 MG PO DAILY Glipizide (Glucotrol), 10 MG PO BID Glucosamine-Chondroitin (Osteo Bi-Flex Regular Str), 1 TAB PO DAILY Hydrochlorothiazide (Hctz), 25 MG PO DAILY Insulin Aspart (Novolog Flexpen), 1 DOSE SC TID Insulin Glargine (Lantus), 90 UNITS SC QPM Insulin Glargine (Lantus), 56 UNITS SC QAM Metoprolol Succinate (Metoprolol Succinate ER), 100 MG PO QAM Metoprolol Succinate (Toprol Xl), 50 MG PO DAILY Nortriptyline HCl (Nortriptyline HCl), 20 MG PO HS Ranitidine (Zantac), 150 MG PO QAM Rivaroxaban (Xarelto), 20 MG PO QAM Rosuvastatin Calcium (Rosuvastatin Calcium), 40 MG PO QAM Vitamin E (Vitamin E 400 Iu), 400 INTER.UNIT PO DAILY Scheduled PRN Acetaminophen (Tylenol), 650 MG PO Q4H PRN for Pain or Fever Ipratropium-Albuterol (Combivent Respimat), 1 PUFF INH Q6H PRN for Shortness of Breath Loperamide Hcl (Anti-Diarrheal), 2 MG PO Q4H PRN for Diarrhea Nitroglycerin (Intra-Anal) (Rectiv), 1 DOSE RE BID PRN for Pain Ondansetron Hcl (Zofran), 4 MG PO Q8 PRN for Nausea or Vomiting Review of Systems Constitutional: No fever, No chills Respiratory: No cough, No sputum, No wheezing, No shortness of breath, No dyspnea on exertion Cardiovascular: No chest pain, No edema, No palpitations Abdomen: + GI bleeding, No pain, No nausea, No vomiting, No diarrhea, No constipation Musculoskeletal: No joint pain, No muscle pain Genitourinary - Male: + urinary incontinence, No hematuria, No dysuria, No urinary frequency, No urinary urgency, No urinary hesitancy, No urinary retention Neurologic: No numbness/tingling, No vertigo, No balance problems Psychiatric: No depression symptoms, No anxiety, No insomnia Endocrine: No fatigue Hematologic / Lymphatic: + abnormal bleeding/bruising Integumentary: No rash Allergic / Immunologic: No environmental allergies, No seasonal allergies Physical Ex - H&P Physical Exam Vital Signs Date Time Temp Pulse Resp B/P (MAP) Pulse Ox O2 Delivery O2 Flow Rate FiO2 10/04/17 18:41 94 Room Air 10/04/17 18:31 82 16 147/62 94 Room Air 10/04/17 17:10 98 Room Air 10/04/17 17:07 90 10/04/17 16:50 36.5 84 18 147/67 94 Room Air General Appearance: no apparent distress Head: normocephalic, atraumatic Eyes: normal inspection ENT: hearing grossly normal Neck: supple Respiratory/Chest: chest non-tender, lungs clear, normal breath sounds, no respiratory distress, no accessory muscle use Cardiovascular: no edema, no murmur, + irregularly irregular Abdomen/GI: normal bowel sounds, non tender, soft, no organomegaly Extremities/Musculoskelatal: normal inspection, no calf tenderness, normal capillary refill, no pedal edema 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, no motor/sensory deficits, alert, normal mood/affect, oriented x 3 Skin: normal color, + pertinent finding (+skin sloughing/wounds noted at the L anterior luna) Lymphatic: no adenopathy Diagnostics - H&P Diagnostics Laboratory Results Results Past 24 Hours Test 10/04/17 17:22 Range/Units White Blood Count 7.83 4.8-10.8 K/uL Red Blood Count 4.36 4.7-6.1 M/uL Hemoglobin 13.8 14.0-18.0 g/dL Hematocrit 41.4 42-52 % Mean Corpuscular Volume 95.0 80-100 fL Mean Corpuscular Hemoglobin 31.7 25-34 pg Mean Corpuscular Hemoglobin Concent 33.3 32-36 g/dl Platelet Count 229 130-400 K/uL Mean Platelet Volume 10.2 7.4-10.4 fL Neutrophils (%) (Auto) 70.4 % Lymphocytes (%) (Auto) 18.9 % Monocytes (%) (Auto) 8.6 % Eosinophils (%) (Auto) 1.7 % Basophils (%) (Auto) 0.3 % Neutrophils # (Auto) 5.52 1.4-6.5 K/uL Lymphocytes # (Auto) 1.48 1.2-3.4 K/uL Monocytes # (Auto) 0.67 0.11-0.59 K/uL Eosinophils # (Auto) 0.13 0-0.5 K/uL Basophils # (Auto) 0.02 0-0.2 K/uL RDW Standard Deviation 47.4 36.4-46.3 fL RDW Coefficient of Variation 13.8 11.5-14.5 % Immature Granulocyte % (Auto) 0.1 % Immature Granulocyte # (Auto) 0.01 0.00-0.02 K/uL Prothrombin Time 12.7 9.0-12.0 SECONDS Prothromb Time International Ratio 1.2 0.9-1.1 Activated Partial Thromboplast Time 33.3 21.0-31.0 SECONDS Partial Thromboplastin Ratio 1.3 Sodium Level 134 136-145 mmol/L Potassium Level 4.2 3.5-5.1 mmol/L Chloride Level 101 98-107 mmol/L Carbon Dioxide Level 30 21-32 mmol/L Anion Gap 3.0 3-11 mmol/L Blood Urea Nitrogen 18 7-18 mg/dl Creatinine 1.42 0.60-1.40 mg/dl Est Creatinine Clear Calc Drug Dose 52.7 ml/min Estimated GFR () 52.6 Estimated GFR (Non- 45.4 BUN/Creatinine Ratio 12.7 10-20 Random Glucose 235 70-99 mg/dl Calcium Level 8.6 8.5-10.1 mg/dl Total Bilirubin 0.2 0.2-1 mg/dl Direct Bilirubin < 0.1 0-0.2 mg/dl Aspartate Amino Transf (AST/SGOT) 28 15-37 U/L Alanine Aminotransferase (ALT/SGPT) 27 12-78 U/L Alkaline Phosphatase 77 45-117 U/L Total Protein 7.0 6.4-8.2 gm/dl Albumin 2.9 3.4-5.0 gm/dl Lipase 79 73-393 U/L EKG Sinus rhythm with Premature atrial complexes T wave abnormality, consider lateral ischemia Impression - H&P Impression Assessment and Plan This is a 82 year old male with a PMH of atrial fibrillation on Xarelto, HTN, HLD, insulin dependent DM2, BJ on CPAP, hx. of prostate CA s/p radiation s/p surgery, recent hx. of LGIB in January 2017 presents with LGIB LGIB bright red blood per rectum patient with a colonoscopy in January 2017 - showed a non-bleeding colonic angiodysplasia Xarelto was stopped at that time and restarted later as an outpatient will hold Xarelto and aspirin H/H q4 for now monitor in tele PPI drip continue ferrous sulfate GI consultation A. Fib currently in A. Fib with rate control will continue Cardizem and Metoprolol for rate control hold Xarelto consulted cardiology for further input at this point, risk of bleeding outweighs risk of stroke Insulin Dependent DM2 patient takes Lantus over 90 units in the PM and over 50 units in the AM currently, he is on a clear liquid diet, so we will do Lantus 40 units BID with a sliding scale for now monitor BSGs closely glycemic control consultation placed BJ ordered for nocturnal CPAP - patient unsure of his settings as this was just started about one week prior Traumatic Wound patient hit his L luna on something a few weeks back skin is still open no infection noted over this will consult wound care DVT ppx SCDs FULL CODE Advanced Directives Existing Living Will: No Existing Power of Earring Maker: No VTE Prophylaxis VTE Risk Assessment Done? 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, no motor/sensory deficits, alert , normal mood/affect, oriented x 3 Skin: normal color, + pertinent finding (+skin sloughing/wounds noted at the L anterior luna) Lymphatic: no adenopathy Hospital Course RECTAL BLEEDING:Secondary to Radiation colitis and complicated by Polyps on Xarelto -patient presents with bright red blood per rectum -last colonoscopy in January 2017 - showed a non-bleeding colonic angiodysplasia, Xarelto was stopped at that time and restarted later as an outpatient -continue to hold Xarelto and aspirin for now -Monitor H/H-remains stable -GI consulted-appreciate input -S/P Colonoscopy today -report noted.Radiation colitis and 2 Polyps -PPI changed to PO per GI -continue ferrous sulfate -Hb remains Stable -Clinically much better and no more bleeding per rectum. -will get PT/OT evaluation before discharge this afternoon -discharge on Carafate Enema 2gm BID for 2 weeks ATRIAL FIBRILLATION: -remains in A. Fib with rate control -continued on Cardizem and Metoprolol -continued to hold Xarelto for now -Cardio consulted, appreciate recommendations, have started amiodarone -Recommended to hold Xarelto for now and continue Amiodarone -Cardiology will call for appointment DM TYPE II: -on high dose Lantus at home + sliding scale -Glycemic pharmacy consulted, appreciate recs -monitor BSGs closely -HbA1c 8.6% -Blood sugar remains stable Obesity Advised weight reduction through Diet and Exercise BJ: -CPAP qHS COPD: -not in exacerbation HYPERLIPIDEMIA: -continue statin LUNA WOUND: -secondary to trauma a few weeks back -wound care consulted regarding non-healing open wound Disposition Likely discharge today Total time spent on discharge = 35 minutes This includes examination of the patient, discharge planning, medication reconciliation, and communication with other providers. Discharge Instructions Date of Service Oct 07, 2017. 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 Who to Call and When: Medical Emergencies: If at any time you feel your situation is an emergency, please call 911 immediately. . Non-Emergent Contact Non-Emergency issues call your: Primary Care Provider . Past History Medical & Surgical History: (1) GI bleeding (2) Renal insufficiency (3) HTN (hypertension) (4) Hypercholesteremia (5) Kidney stones (6) Afib (7) DM2 (diabetes mellitus, type 2) (8) Prostate CA (9) tumor removal- abdominal wall (10) Gross hematuria (11) History of partial colectomy (12) S/P tonsillectomy . "Provider Documentation" section prepared by David Barnes. . VTE Core Measure Inpt VTE Proph given/why not?: SCD's, Contraindicated <Electronically signed by David Barnes M.D.> Signed: 10/07/17 [id number] Signed: Additional Copies To MICHAEL AGUILAR
== END 2017-10-07 16:45 | disposition home or self-care (01) | DRG 378 ==
LOC: EDBD 16:37 → C.EDB 16:40 → C.MED 18:49 → ENRESERV 18:59
PROVIDERS: ADMIT Family Medicine; ATTEND Internal Medicine
PROC: 0DBK8ZZ Excision of Ascending Colon, Via Natural or Artificial Opening Endoscopic (ICD-10-PCS; principal; 2017-10-06 08:38)
PROC: 0DBH8ZZ Excision of Cecum, Via Natural or Artificial Opening Endoscopic (ICD-10-PCS; principal; 2017-10-06 08:38)
PROC: 0W3P8ZZ Control Bleeding in Gastrointestinal Tract, Via Natural or Artificial Opening Endoscopic (ICD-10-PCS; principal; 2017-10-06 08:38)
DX: K92.2 Gastrointestinal hemorrhage, unspecified (principal); K52.0 Gastroenteritis and colitis due to radiation; D68.32 Hemorrhagic disorder due to extrinsic circulating anticoagulants; I48.92 Unspecified atrial flutter; K55.21 Angiodysplasia of colon with hemorrhage; K63.5 Polyp of colon; D12.0 Benign neoplasm of cecum; K63.89 Other specified diseases of intestine; K64.8 Other hemorrhoids; I48.0 Paroxysmal atrial fibrillation; S81.802A Unspecified open wound, left lower leg, initial encounter; W22.8XXA Striking against or struck by other objects, initial encounter; J44.9 Chronic obstructive pulmonary disease, unspecified; I10 Essential (primary) hypertension; E78.5 Hyperlipidemia, unspecified; E11.9 Type 2 diabetes mellitus without complications; G47.33 Obstructive sleep apnea (adult) (pediatric); R41.3 Other amnesia; F32.9 Major depressive disorder, single episode, unspecified; E66.9 Obesity, unspecified; Z68.35 Body mass index [BMI] 35.0-35.9, adult; Z99.89 Dependence on other enabling machines and devices; Z90.49 Acquired absence of other specified parts of digestive tract; Z79.4 Long term (current) use of insulin; Z79.01 Long term (current) use of anticoagulants; Z79.899 Other long term (current) drug therapy

== ENCOUNTER → 2017-10-23 | Outpatient (CLI) | payer OTHER ==
[~2017-10-23] MED LIST changes: +CRD200 PO; +CYAN10005 PO; +DILT-115 PO; -DILT180C PO; +DOCU-94 PO; +FRS/40 PO; +GLIP10TA3 PO; +INSDGI SC; +METO-217 PO; +NITR1OIN RE; +RANI150T85 PO; -RIVA1TAB4 PO; -ROSU40TA18 PO; +ROSU40TA19 PO; -TPRSR50 PO; -ZNTT/150 PO
[2017-10-23 09:29] LABS: BLOOD UREA NITROGEN 19 mg/dl (7-18); CALCIUM 8.7 mg/dl (8.5-10.1); CARBON DIOXIDE 32 mmol/L (21-32); CREATININE 1.38 mg/dl (0.60-1.40); GLUCOSE 197 mg/dl (70-99); POTASSIUM 3.9 mmol/L (3.5-5.1); SODIUM 138 mmol/L (136-145)
== END | disposition home or self-care (01) ==
LOC: C.LABWYN 09:06
PROVIDERS: ATTEND Internal Medicine
DX: I50.9 Heart failure, unspecified (principal)

== ENCOUNTER → 2018-06-02 | Outpatient (CLI) | payer OTHER ==
[~2018-06-02] MED LIST changes: -GLUCTAB18 PO; -NVLGI/PEN SC
[2018-06-02 09:52] LABS: BASO % 0.2 %; BASO ABS # 0.01 K/uL (0-0.2); EOS % 2.8 %; EOS ABS # 0.15 K/uL (0-0.5); HEMATOCRIT 40.8 % (42-52); HEMOGLOBIN 13.3 g/dL (14.0-18.0); LYMPH % 27.7 %; MEAN CORPUSCULAR HEMOGLOBIN 32.6 pg (25-34); MEAN CORPUSCULAR HGB CONC 32.6 g/dl (32-36); MEAN PLATELET VOLUME 11.3 fL (7.4-10.4); MONO % 11.8 %; MONO ABS # 0.64 K/uL (0.11-0.59); NEUT % 57.5 %; NEUT ABS # 3.11 K/uL (1.4-6.5); PLATELET COUNT 190 K/uL (130-400); RED CELL DISTRIBUTION WIDTH CV 13.2 % (11.5-14.5); RED CELL DISTRIBUTION WIDTH SD 48.1 fL (36.4-46.3); WHITE BLOOD COUNT 5.41 K/uL (4.8-10.8)
[2018-06-02 10:26] LABS: ALBUMIN 3.1 gm/dl (3.4-5.0); ALKALINE PHOSPHATASE 63 U/L (45-117); ALT/SGPT 49 U/L (12-78); AST/SGOT 37 U/L (15-37); BLOOD UREA NITROGEN 18 mg/dl (7-18); CALCIUM 8.1 mg/dl (8.5-10.1); CARBON DIOXIDE 30 mmol/L (21-32); CHOLESTEROL 81 mg/dl (0-200); CREATININE 1.28 mg/dl (0.60-1.40); GLUCOSE 87 mg/dl (70-99); LDL CHOLESTEROL CALCULATED 27 mg/dl; POTASSIUM 4.1 mmol/L (3.5-5.1); SODIUM 140 mmol/L (136-145); TOTAL PROTEIN 6.8 gm/dl (6.4-8.2)
[2018-06-02 10:33] LABS: HEMOGLOBIN A1C 7.6 % (4.5-5.6)
== END | disposition home or self-care (01) ==
LOC: C.LABCC 09:05
PROVIDERS: ATTEND Internal Medicine
DX: E11.9 Type 2 diabetes mellitus without complications (principal); E78.5 Hyperlipidemia, unspecified